=== PATIENT | male | born 1965 | race Caucasian/White ===

== ENCOUNTER 2019-06-23 03:28 | Inpatient (IN) ==
[2019-06-23] MEDS ORDERED: SODIUM CHLORIDE 0.9% 1000ML 1,000 ML IV SCH (04:00)
[2019-06-23 04:04] LABS: Basophils # (auto) 0.01 K/uL (0-0.2); Basophils % (auto) 0.2 %; Eosinophils # (auto) 0.19 K/uL (0-0.5); Hematocrit (blood only) 41.5 % (42-52); Immature Granulocytes # (auto) 0.01 K/uL (0.00-0.02); Immature Granulocytes % (auto) 0.2 %; Lymphocytes % (auto) 25.6 %; Mean Corpuscular Hemoglobin 33.3 pg (25-34); Mean Corpuscular Hgb Conc 36.1 g/dL (32-36); Monocytes # (auto) 0.41 K/uL (0.11-0.59); Monocytes % (auto) 6.5 %; Neutrophils # (auto) 4.04 K/uL (1.4-6.5); Neutrophils % (auto) 64.5 %; Platelet Count 219 K/uL (130-400); RDW Standard Deviation 43.4 fL (36.4-46.3); Red Blood Count 4.51 M/uL (4.7-6.1); White Blood Count 6.26 K/uL (4.8-10.8)
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
[2019-06-23 04:21] LABS: Alanine Aminotransferase 34 U/L (12-78); Albumin Level 4.1 gm/dl (3.4-5.0); Aspartate Aminotransferase 24 U/L (15-37); BUN Creatinine Ratio 11.8 (10-20); Blood Urea Nitrogen 10 mg/dl (7-18); Calcium 8.3 mg/dl (8.5-10.1); Carbon Dioxide 22 mmol/L (21-32); Chloride 102 mmol/L (98-107); Creatinine Clr Calc Pharmacy 119.2 ml/min; Est GFR (African American) 113.7; Est GFR (Non-African American) 98.1; Glucose 179 mg/dl (70-99); Potassium 3.5 mmol/L (3.5-5.1); Sodium 135 mmol/L (136-145)
[2019-06-23] MEDS ORDERED: IOVERSOL 100ml IV PRN (04:25)
[2019-06-23 04:26] LABS: Albumin Globulin Ratio 1.2 (0.9-2); Alkaline Phosphatase 66 U/L (45-117); Bilirubin,Total 0.5 mg/dl (0.2-1); Globulin 3.3 gm/dl (2.5-4.0); INR 4.9 (0.9-1.1); Partial Thromboplastin Ratio 1.5; Partial Thromboplastin Time 41.9 Seconds (21.0-31.0); Total Protein 7.4 gm/dl (6.4-8.2); Troponin I < 0.015 ng/ml (0-0.045)
[2019-06-23] MEDS ORDERED: PHYTONADIONE 5 MG TAB PO STA (04:55)
[2019-06-23] MEDS ORDERED: PHYTONADIONE 5 MG TAB PO ONE (05:00)
[2019-06-23] MEDS ORDERED: MULTI-VITAMIN INFUSION 10 ML, THIAMINE HCL 100 MG, FOLIC ACID 1 MG in SODIUM CHLORIDE 0... IV STA (05:03)
[2019-06-23] MEDS ORDERED: CALCIUM GLUCONATE 10% 1,000 MG in SODIUM CHLORIDE 0.9% 50 ML IV STA (05:04)
[2019-06-23] MEDS ORDERED: HYDROmorphone INJ 0.5 MG/0.5 ML SYR IV STA (05:41)
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
[2019-06-23 06:41] LABS: Estimated Average Glucose 143 mg/dl; Hemoglobin A1C 6.6 % (4.5-5.6)
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
[2019-06-23] MEDS ORDERED: HYDROmorphone INJ 0.5 MG/0.5 ML SYR IV ONE (06:59)
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
[2019-06-23] MEDS ORDERED: CARBOHYDRATES FOR HYPOGLYCEMIA PO PRN (07:16)
[2019-06-23] MEDS ORDERED: PROMETHAZINE HCL 12.5 MG in SODIUM CHLORIDE 0.9% 50 ML IV PRN (07:16)
[2019-06-23] MEDS ORDERED: GLUCAGON FOR INJ 1 MG VIAL SQ PRN (07:16)
[2019-06-23] MEDS ORDERED: HYDROmorphone INJ 0.5 MG/0.5 ML SYR IV PRN (07:16)
[2019-06-23] MEDS ORDERED: OXYCODONE HCL IR 5 MG TAB (IMMEDIATE RELEASE) PO PRN (07:16)
[2019-06-23] MEDS ORDERED: LORazepam 3 MG/6 ML VIAL IV PRN (07:16)
[2019-06-23] MEDS ORDERED: NITROGLYCERIN SL 0.4 MG/TAB TAB SL PRN (07:16)
[2019-06-23] MEDS ORDERED: LORazepam 2 MG/4 ML VIAL IV PRN (07:16)
[2019-06-23] MEDS ORDERED: ACETAMINOPHEN 325 MG TAB PO PRN (07:16)
[2019-06-23] MEDS ORDERED: ATIVAN IV ALCOHOL WITHDRAWL IV SCH (07:16)
[2019-06-23] MEDS ORDERED: DEXTROSE 50% 50 ML SYRINGE IV PRN (07:16)
[2019-06-23] MEDS ORDERED: GLUCOSE 40% GEL 15 GM TUBE PO PRN (07:16)
[2019-06-23] MEDS ORDERED: LORazepam 1 MG/2 ML VIAL IV PRN (07:16)
[2019-06-23] MEDS ORDERED: GLUCOSE 10 TABS/TUBE PO PRN (07:16)
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
[2019-06-23] MEDS ORDERED: METOPROLOL TARTRATE 1 MG/ML VIAL IV STA (07:48)
[2019-06-23] MEDS ORDERED: POTASSIUM CHLORIDE 20 MEQ TABCR PO STA (07:49)
[2019-06-23] MEDS ORDERED: MULTI-VITAMIN INFUSION 10 ML, THIAMINE HCL 100 MG, FOLIC ACID 1 MG in SODIUM CHLORIDE 0... IV ONE (07:51)
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
[2019-06-23 08:38] LABS: Appearance Urine Clear (Clear); Bacteria Urine Automated Negative (Negative); Bilirubin Urine Negative (Negative); Blood Urine 3+ (Negative); Cast Urine Automated 0 /lpf (0-5); Color Urine Yellow; Epithelial Cell Urine Auto 0-5 /lpf (0-5); Glucose Urine UA 2+ (Negative); Ketones Urine Trace (Negative); Leukocyte Esterase Urine Negative (Negative); Nitrite Urine Negative (Negative); Protein Urine Negative (Negative); Specific Gravity Urine 1.027 (1.000-1.030); Urobilinogen Urine Negative (Negative); WBC Urine Automated 0 /hpf (0-5)
[2019-06-23] MEDS: INSULIN ASPART 100 UNITS/ML 3 ML PEN SC SCH ×4 (08:47→21:08)
[2019-06-23] MEDS: ATORVASTATIN 20 MG TAB PO SCH (08:54)
[2019-06-23] MEDS: METOPROLOL SUCC 50MG EXT REL TAB PO SCH ×2 (08:59→20:57)
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
[2019-06-23 11:24] LABS: Amphetamines+Metham, Urine Neg (Neg); Barbiturates, Urine Neg (Neg); Benzodiazepine, Urine Neg (Neg); Cocaine, Urine Neg (Neg); MDMA (Ecstacy), Urine Neg (Neg); Methadone, Urine Neg (Neg); Opiate, Urine Neg (Neg); Phencyclidine, Urine Neg (Neg)
[2019-06-23 12:21] LABS: Hematocrit (blood only) 39.1 % (42-52); Hemoglobin 13.7 g/dL (14.0-18.0)
[2019-06-23] MEDS ORDERED: SODIUM CHLORIDE 0.65% NA SOLN 45 ML (OCEAN) ONE (12:56)
[2019-06-23] MEDS ORDERED: TRAMADOL HCL 50 MG TABLET PO PRN (12:59)
[2019-06-23] MEDS ORDERED: Nursing to Pharmacy Communication ONE (13:16)
[2019-06-23] MEDS: PANTOprazole 40 MG in SYRINGE 0 ML IV SCH (13:19)
[2019-06-23] MEDS ORDERED: SODIUM CHLORIDE 0.65% NA SOLN 45 ML (OCEAN) PRN (13:26)
[2019-06-24 06:23] LABS: Basophils # (auto) 0.01 K/uL (0-0.2); Basophils % (auto) 0.1 %; Eosinophils % (auto) 2.4 %; Hematocrit (blood only) 39.2 % (42-52); Hemoglobin 14.2 g/dL (14.0-18.0); Immature Granulocytes # (auto) 0.01 K/uL (0.00-0.02); Immature Granulocytes % (auto) 0.1 %; Lymphocytes # (auto) 1.42 K/uL (1.2-3.4); Lymphocytes % (auto) 16.8 %; Mean Corpuscular Hemoglobin 33.5 pg (25-34); Mean Corpuscular Hgb Conc 36.2 g/dL (32-36); Mean Corpuscular Volume 92.5 fL (80-100); Monocytes % (auto) 10.7 %; Neutrophils # (auto) 5.89 K/uL (1.4-6.5); Neutrophils % (auto) 69.9 %; Platelet Count 190 K/uL (130-400); RDW Standard Deviation 43.5 fL (36.4-46.3); Red Blood Count 4.24 M/uL (4.7-6.1); White Blood Count 8.43 K/uL (4.8-10.8)
[2019-06-24 06:36] LABS: INR 1.5 (0.9-1.1); Prothrombin Time 15.2 Seconds (9.0-12.0)
[2019-06-24 06:59] LABS: BUN Creatinine Ratio 13.7 (10-20); Calcium 8.5 mg/dl (8.5-10.1); Est GFR (African American) 109.7; Est GFR (Non-African American) 94.6; Potassium 3.8 mmol/L (3.5-5.1)
[2019-06-24] MEDS: METOPROLOL SUCC 50MG EXT REL TAB PO SCH (08:05)
[2019-06-24] MEDS: ATORVASTATIN 20 MG TAB PO SCH (08:06)
[2019-06-24] MEDS: INSULIN ASPART 100 UNITS/ML 3 ML PEN SC SCH ×3 (08:07→16:42)
[2019-06-24] MEDS ORDERED: ASPIRIN 81 MG ECTAB PO SCH (09:00)
[2019-06-24] MEDS ORDERED: FOLIC ACID 1 MG TAB PO SCH (09:00)
[2019-06-24] MEDS ORDERED: MULTIVITAMIN TAB PO SCH (09:00)
[2019-06-24] MEDS ORDERED: THIAMINE HCL 100 MG TAB PO SCH (09:00)
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
[2019-06-24] MEDS: PANTOprazole 40 MG in SYRINGE 0 ML IV SCH (10:59)
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
[2019-06-24] MEDS ORDERED: WARFARIN SOD 5 MG TAB PO SCH (16:00)
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
[2019-06-25] MEDS ORDERED: WARFARIN SOD 10 MG TAB PO SCH (16:00)
== END 2019-06-24 20:30 | disposition short-term general hospital (02) | DRG 605 ==
LOC: ED 03:28 → 2N 05:48 → 2E 08:47

== ENCOUNTER 2025-01-26 01:48 | Inpatient (IN) ==
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
[2025-01-26] MEDS: HYDROmorphone INJ 1 MG/ML SYRINGE IV STA ×2 (02:44→05:15)
[2025-01-26 02:57] LABS: Basophils # (auto) 0.04 K/uL (0.00-0.20); Basophils % (auto) 0.4 %; Eosinophils % (auto) 1.8 %; Hematocrit (blood only) 42.6 % (42.0-52.0); Immature Granulocytes # (auto) 0.03 K/uL (0.01-0.20); Immature Granulocytes % (auto) 0.3 %; Lymphocytes # (auto) 2.03 K/uL (1.20-3.40); Lymphocytes % (auto) 17.9 %; Mean Corpuscular Hemoglobin 32.3 pg (25.0-34.0); Mean Corpuscular Hgb Conc 35.2 g/dL (32.0-36.0); Mean Corpuscular Volume 91.6 fL (80.0-100.0); Mean Platelet Volume 9.3 fL (9.4-12.4); Monocytes # (auto) 0.64 K/uL (0.11-0.59); Monocytes % (auto) 5.6 %; Neutrophils # (auto) 8.39 K/uL (1.40-6.50); Platelet Count 239 K/uL (130-400); RDW Coefficient of Variation 12.2 % (11.5-14.5); RDW Standard Deviation 40.4 fL (36.4-46.3); Red Blood Count 4.65 M/uL (4.70-6.10); White Blood Count 11.33 K/ul (4.8-10.8)
[2025-01-26 03:06] LABS: BUN Creatinine Ratio 18.3 (10-20); Calcium 9.8 mg/dl (8.6-10.3); Creatinine Clr Calc Pharmacy 93.3 ml/min; Potassium 3.6 mmol/L (3.5-5.1)
[2025-01-26] MEDS: fentaNYL citrate PF 100 MCG/2 ML VIAL IV STA ×2 (03:13→05:31)
--- NOTE | 2025-01-26 03:24 | XRay Report ---
EXAM: XR hip RT 2V w pelvis CLINICAL HISTORY: Right hip trauma. TECHNIQUE: X-ray images of the right hip joints and pelvis were obtained in anteroposterior (AP) projection. COMPARISON: CT pelvis dated 06/23/2019. FINDINGS: Pelvic Bones: The pelvic bones, including the iliac wings, ischium, pubis, and sacrum, are normal and intact. No evidence of fractures, dislocations, or significant osseous lesions. Hip Joints: Right hip joint: Degenerative changes manifested by osteophytes, joint space narrowing, and subchondral sclerosis. Moderate osteoarthritis of the left hip joint. No evidence of hip dislocation or subluxation. Acetabular structures appear normal and intact. No signs of acetabular fracture or dysplasia. Femoral heads are normal and centered within the acetabulum. No evidence of fractures, avascular necrosis, or significant deformities. Sacroiliac joints : Degenerative changes. Symphysis Pubis: Degenerative changes. Soft Tissues: Small calcification was seen adjacent to the greater trochanter of the right femur, likely ligamentous. Unchanged. Multiple pelvic phleboliths are noted. Additional Findings: No other significant abnormalities were noted. IMPRESSION: 1. No evidence of acute fractures or dislocations. 2. Mild to moderate osteoarthritis of both hip joints. 3. No significant interval change. DISCLAIMER:A subtle bone abnormality or fracture may not be readily apparent on x-rays, thus clinical correlation and further imaging including follow up CT, MRI, or follow up x-rays are advised as needed. Electronically signed by George Vallecillo 01-26-2025 03:24 AM
[2025-01-26 03:49] LABS: INR 4.5 (0.9-1.1); Prothrombin Time 42.9 Seconds (9.0-12.0)
--- NOTE | 2025-01-26 05:01 | CT Scan Report ---
EXAM: CT hip RT wo con CLINICAL HISTORY: fall, right hip pain TECHNIQUE: Contiguous axial CT images of right hip were obtained without intravenous contrast. Coronal and sagittal reconstructions were likewise performed and indicated to increase the sensitivity for detecting clinically relevant pathology. CT scan was performed according to ALARA (as low as reasonable achievable). COMPARISON: None. FINDINGS: Suboptimal evaluation due to motion artifacts. Enthesopathic changes are noted from ischial tuberosity, pubic rami and trochanters. Right gluteus medius muscle appears diffusely bulky and edematous. Suspicious hypodensities are noted within it, may represent hematoma (in the given clinical background of trauma). However, it is sub-optimally evaluated as no soft tissue window images available. Ultrasound correlation is suggested for better evaluation. No acute fracture or dislocation. No destructive osseous lesion. Rest of the visualized muscles and tendons appear grossly unremarkable. No cortical destruction to suggest osteomyelitis. No abscess formation. No significant joint effusion. Normal subcutaneous adipose space. IMPRESSION: 1. No acute fracture or dislocation. 2. Suboptimal evaluation due to motion artifacts. 3. Enthesopathic changes are noted from ischial tuberosity, pubic rami and trochanters. 4. Right gluteus medius muscle appears diffusely bulky and edematous. Suspicious hypodensities are noted within it, may represent hematoma (in the given clinical background of trauma). However, it is sub-optimally evaluated as no soft tissue window images available. Ultrasound / soft tissue window correlation is suggested for better evaluation. Electronically signed by Eleuterio Khalil 01-26-2025 05:01 AM
--- NOTE | 2025-01-26 05:06 | CT Scan Report ---
EXAM: CT pelvis wo con CLINICAL HISTORY: fall, right hip pain TECHNIQUE: Contiguous axial CT images of pelvis were obtained without intravenous contrast. Coronal and sagittal reconstructions were likewise performed and indicated to increase the sensitivity for detecting clinically relevant pathology. CT scan was performed according to ALARA (as low as reasonable achievable). COMPARISON: None. FINDINGS: Mild arthritis of bilateral hip in the form of small marginal osteophyte. No acute fracture or dislocation. No destructive osseous lesion. The visualized muscles and tendons appear grossly unremarkable. No cortical destruction to suggest osteomyelitis. No abscess formation. No significant joint effusion. There are no soft tissue masses. Normal subcutaneous adipose space. Multiple small uncomplicated sigmoid colonic diverticulosis IMPRESSION: No obvious acute trauma related abnormality seen. Electronically signed by Eleuterio Khalil 01-26-2025 05:04 AM
--- NOTE | 2025-01-26 05:06 | CT Scan Report ---
EXAM: CT head/brain wo con CLINICAL HISTORY: trauma on coumadin TECHNIQUE: Multiple axial images are obtained from the skull base to the vertex without contrast. CT scan was performed according to ALARA (as low as reasonable achievable). 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 FINDINGS: There is cerebral atrophy. No evidence of space occupying lesion, hemorrhage, edema, mass effect, midline shift, extra axial collection, or hydrocephalus is noted. Basal cisterns are symmetric and normal in size and configuration. There are scattered periventricular hypodensities as can be seen with chronic microvascular ischemic changes. The shaikh-white matter differentiation is preserved. Visualized paranasal sinuses and mastoid air cells are well aerated. Orbital contents are within normal limits. Bony structures are intact. No significant interval newabnormality detected. IMPRESSION: 1. No evidence of acute intracranial abnormality is demonstrated. 2. Chronic microvascular ischemic changes.-stable. 3. Cerebral atrophy.-stable. 4. Prior scalp hematoma is completely resolved Electronically signed by Eleuterio Khalil 01-26-2025 05:05 AM
[2025-01-26] MEDS ORDERED: ACETAMINOPHEN 325 MG TAB PO PRN (05:43)
[2025-01-26] MEDS: AMOXICILLIN/CLAVULANATE 875 MG TAB PO ONE (05:55)
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
--- OUTSIDE RECORDS SUMMARY | 2025-01-26 06:34 | External Medical Summary | Summary of Care ---
Author Name Unknown Organization [facility] Address [address] [facility] [place] [address] Phone [phone] Care Team Providers Care Jigsaw Operator Name Role Phone Elton Lal MD Primary Care Provider [phone] Reason for Visit * Reason Onset Date Comments Forms Request 01/10/2025 Encounter Details Date Type Department Care Team (Late st Contact Info) Description 01/10/2025 Telephone [facility] [address] [place] [address] Elton Lal MD [address] [place] [address] Forms Request Allergies Active Allergy Reactions Criticality Noted Date Comments Lisinopril 01/07/2011 ED Morphine And Codeine 10/27/2015 "goofy and combative" documented as of this encounter (statuses as of 01/24/2025) Medications StribeTOUCH ULTRA SYSTEM W/DEVICE KITIndications:D M type 2, [...] as of this encounter (statuses as of 01/24/2025) Active Problems Problem Noted Date Diagnosed Date [...] as of this encounter (statuses as of 01/24/2025) Resolved Problems Problem Noted Date Diagnosed Date [...] as of this encounter (statuses as of 01/24/2025) Immunizations Name Administration Dates Next Due TDAP, [...] encounter Miscellaneous Notes * Telephone Encounter - Nydia Armas OSA - 01/24/2025 3:57 PM EDT Refaxed. 01/24/2025 * Telephone Encounter - Kerline Blandon OSA - 01/23/2025 10:59 AM EDT Patient calling in to check on the status of previous message. Patient Called within 48 hour timeframe. Reminded patient of 48 hour turn-around time. * Telephone Encounter - Stephanie Golden OSA - 01/23/2025 10:34 AM EDT Pt called back stated that he spoke with [employer] and he was advised by them that they did receive the fax but the papers were blank and possibly faxed upside down. Pls refax this pls Pt is requesting for a call once It has been refaxed. * Telephone Encounter - Nydia Armas OSA - 01/21/2025 4:33 PM EDT Forms have been faxed. Called patient to let him know they have been faxed and offered for him to parts picker originals. He asked that we keep originals until he knows that they have been received. 01/21/2025 * Telephone Encounter - Elotn Lal MD - 01/21/2025 2:00 PM EDT Let Pt know I will complete the form later today. He could parts picker at desk after 6 PM or tomorrow. * Telephone Encounter - Maime Lobato OSA - 01/21/2025 7:30 AM EDT Patient calling in to check on the status of previous message. Patient Called after forms 5-7 business day turnaround timeframe and escalation e-mail was sent to clinic leadership. Patient states that the [employer] paperwork needs to be faxed to [facility] and the short term disability needs to be faxed to [facility]. Patient needs both paperwork completed by the end of week, or he will be denied. The FMLA paperwork was supposed to be submitted by 01/19/2025. * Telephone Encounter - Safia Luna LPN - 01/17/2025 5:59 PM EDT Spoke with pt . He stated it's a little better, but wants to keep the date 02/21/2025 for now. He will be dropping off more paper work ( that was supposed to have been faxed to us) tomorrow. thanks * Telephone Encounter - Elton Lal MD - 01/17/2025 4:42 PM EDT Please contact Pt: I indicated to Pt he might need to be off work until end of January. Need to know if he is feeling much better . We can keep withj retutn to work as of 02/21/25 but if feeling much better, he might be able to return sooner - like mid January. * Telephone Encounter - Safia Luna LPN - 01/17/2025 2:17 PM EDT Form placed on provider's desk in manilla envelope to review and fill out * Telephone Encounter - Mark Morgan OSA - 01/16/2025 2:52 PM EDT Pt wanting to know if his FMLA paperwork is completed and if a fax was received today for Short term disability. * Telephone Encounter - Joe Solis OSA - 01/10/2025 3:00 PM EDT Patient came in to drop off FMLA paperwork that needs filled out by PCP. Please fax back to [phone] when completed. documented in this encounter Plan of Treatment Upcoming Encounters Date Type Department Care Team (Late st Contact Info) Description 01/29/2025 6:45 PM EDT Anticoagulation Centralized Clinical Pharmacy Services, Tremaine Ortiz [address] [place] [address] [place] [address] [facility], [address] [place] [address] Health Maintenance Due Date Last Done Comments [...] 08/25/2020, 0 01/29/2019, 02/15/2012 COVID-19 Vaccine ( season) 2024 Influenza Vaccine (FLU shot) (Season [...] this encounter Medical Devices Implanted Type Area Record Filing Clerk Device Identifier Shelf Expiration Date Model / Serial / Lot Graft Valved Valsalva 27mm - [id number] - [id number] Implanted:Qty: 1 on 10/09/2015 by Khalif Melgar MD at OR [facility] Aorta [employer]ACIN[employer] : CARDIOVASCULAR 01/21/2018 [id number]-[id number] / [id number] / Sut Steel 6 M654g - [id number] Implanted:Qty: 4 on 10/09/2015 by Khalif Melgar MD at OR [facility] Chest JNJ : [employer] 06/23/2020 M654G / / [id number] documented as of this encounter Advance Directives [...] and were consensually agreed upon. Care Teams Jigsaw Operator Relationship Specialty Start Date End Date Elton Lal MD [address] [facility] [place] [address] PCP - General Family Medicine 01/08/25 documented as of this encounter
--- OUTSIDE RECORDS SUMMARY | 2025-01-26 06:34 | External Medical Summary | Summary of Care ---
Author Name Unknown Organization [facility] Address [address] [facility] [place] [address] Phone [phone] Care Team Providers Care Paving Contractor Name Role Phone Elton Lal MD Primary Care Provider [phone] Reason for Visit * Reason Onset Date Comments Forms Request 01/18/2025 Encounter Details Date Type Department Care Team (Late st Contact Info) Description 01/18/2025 Telephone [facility] [address] [facility] [place] [address] Elton Lal MD [address] [place] [address] Forms Request Allergies Active Allergy Reactions Criticality Noted Date Comments Lisinopril 01/07/2011 ED Morphine And Codeine 10/27/2015 "goofy and combative" documented as of this encounter (statuses as of 01/25/2025) Medications NanoStatics CorporationTOUCH ULTRA SYSTEM W/DEVICE KITIndications:D M type 2, [...] encounter Miscellaneous Notes * Telephone Encounter - Stephanie Stark OSA - 01/24/2025 4:15 PM EDT Patient calling back asking what the status of the paperwork for FMLA, he states the [facility] forms were received however patient states [facility] told him there was nothing completed except [...] the paperwork for FMLA, he states the [facility] forms were received however patient states [facility] told him there was nothing completed except [...] Anticoagulation Centralized Clinical Pharmacy Services, Tremaine Ortiz [address] [place] [address] [place] [address] [place] [address] Health Maintenance Due Date Last Done Comments [...] this encounter Medical Devices Implanted Type Area Building Dismantler Device Identifier Shelf Expiration Date Model / Serial / Lot Graft Valved Valsalva 27mm - [id number] - [id number] Implanted:Qty: 1 on 10/09/2015 by Khalif Melgar MD at [place] [facility] Aorta [employer] JACINDA : CARDIOVASCULAR 01/21/2018 [id number]-[id number] / [id number] / Sut Steel 6 M654g - [id number] Implanted:Qty: 4 on 10/09/2015 by Khalif Melgar MD at [place] [facility] Chest JNJ : [employer] 06/23/2020 M654G / / [id number] documented as of this encounter Advance Directives [...] and were consensually agreed upon. Care Teams Paving Contractor Relationship Specialty Start Date End Date Elton Lal MD [address] [place] [address] PCP - General Family Medicine 01/08/25 documented as of this encounter
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
--- OUTSIDE RECORDS SUMMARY | 2025-01-26 06:34 | External Medical Summary | Summary of Care ---
Author Name Unknown Organization [facility] Address [address] [facility] [place] [address] Phone [phone] Care Team Providers Care Art Class Model Name Role Phone Elton Lal MD Primary Care Provider [phone] Reason for Visit * Reason Onset Date Comments Forms Request 01/18/2025 Encounter Details Date Type Department Care Team (Late st Contact Info) Description 01/18/2025 Telephone [facility] [address] [place] [address] Elton Lal MD 226 [place] [address] Forms Request Allergies Active Allergy Reactions Criticality Noted Date Comments Lisinopril 01/07/2011 ED Morphine And Codeine 10/27/2015 "goofy and combative" documented as of this encounter (statuses as of 01/25/2025) Medications [facility] RockfordTOUCH ULTRA SYSTEM W/DEVICE KITIndications:D M type 2, [...] the paperwork for FMLA, he states the [facility] forms were received however patient states [facility] told him there was nothing completed except [...] the paperwork for FMLA, he states the [facility] forms were received however patient states [facility] told him there was nothing completed except [...] Anticoagulation [facility], Tremaine Ortiz [address] [place] [address] [place] [address] [place] [address] Health Maintenance Due Date Last Done Comments [...] this encounter Medical Devices Implanted Type Area Assembler Leather Goods Device Identifier Shelf Expiration Date Model / Serial / Lot Graft Valved Valsalva 27mm - [id number] - [id number] Implanted:Qty: 1 on 10/09/2015 by Khalif Melgar MD at OR [facility] Aorta [facility] JACINDA : CARDIOVASCULAR 01/21/2018 [id number]-[id number] / [id number] / Sut Steel 6 M654g - [id number] Implanted:Qty: 4 on 10/09/2015 by Khalif Melgar MD at OR [facility] Chest JNJ : [employer] 06/23/2020 M654G / / [id number] documented as of this encounter Advance Directives [...] and were consensually agreed upon. Care Teams Art Class Model Relationship Specialty Start Date End Date Elton Lal MD [address] [place] [address] PCP - General Family Medicine 01/08/25 documented as of this encounter
[2025-01-26] MEDS: oxyCODONE HCL IR 5 MG TAB (IMMEDIATE RELEASE) PO PRN (06:35)
--- OUTSIDE RECORDS SUMMARY | 2025-01-26 06:37 | External Medical Summary | Summary of Care ---
Author Name Unknown Organization [facility] Address [address] [facility] [place] [address] Phone [phone] Care Team Providers Care Protection Consultant Name Role Phone Elton Lal MD Primary Care Provider [phone] Reason for Visit * Reason Onset Date Comments Forms Request 01/10/2025 Encounter Details Date Type Department Care Team (Late st Contact Info) Description 01/10/2025 Telephone [facility] [address] [place] [address] Elton Lal MD 226 [place] [address] Forms Request Allergies Active Allergy Reactions Criticality Noted Date Comments Lisinopril 01/07/2011 ED Morphine And Codeine 10/27/2015 "goofy and combative" documented as of this encounter (statuses as of 01/23/2025) Medications BroadchoiceTOUCH ULTRA SYSTEM W/DEVICE KITIndications:D M type 2, [...] as of this encounter (statuses as of 01/23/2025) Active Problems Problem Noted Date Diagnosed Date [...] as of this encounter (statuses as of 01/23/2025) Resolved Problems Problem Noted Date Diagnosed Date [...] as of this encounter (statuses as of 01/23/2025) Immunizations Name Administration Dates Next Due TDAP, [...] encounter Miscellaneous Notes * Telephone Encounter - Kerline Blandon OSA [...] been faxed and offered for him to picker machine operator originals. He asked that we keep originals until he knows that they have been received. 01/21/2025 * Telephone Encounter - Elton Lal MD - 01/21/2025 2:00 PM EDT Let Pt know I will complete the form later today. He could picker machine operator at desk after 6 PM or tomorrow. * Telephone Encounter - Mamie Lobato OSA - 01/21/2025 7:30 AM EDT Patient calling in to check on the status of previous message. Patient Called after forms 5-7 business day turnaround timeframe and escalation e-mail was sent to clinic leadership. Patient states that the FLMA paperwork needs to be faxed to [facility] and the short term disability needs to be faxed to [facility]. Patient needs both paperwork completed by the [...] out by PCP. Please fax back to [phone] when completed. documented in this encounter Plan of Treatment Upcoming Encounters Date Type Department Care Team (Late st Contact Info) Description 01/29/2025 6:45 PM EDT Anticoagulation Centralized Clinical Pharmacy Services, Tremaine Ortiz [address] [place] [address] [place] [address] [facility], [address] [place] [address] Health Maintenance Due Date Last Done Comments [...] 0 01/29/2019, 02/15/2012 COVID-19 Vaccine ( - season) 2024 Influenza Vaccine (FLU shot) (Season [...] this encounter Medical Devices Implanted Type Area Biodiesel Plant Superintendent Device Identifier Shelf Expiration Date Model / Serial / Lot Graft Valved Valsalva 27mm - [id number] - [id number] Implanted:Qty: 1 on 10/09/2015 by Khalif Melgar MD at OR [facility] Aorta [address] JACINDA : CARDIOVASCULAR 01/21/2018 [id number]-[id number] / [id number] / Sut Steel 6 M654g - [id number] Implanted:Qty: 4 on 10/09/2015 by Khalif Melgar MD at OR [facility] Chest JNJ : [employer] 06/23/2020 M654G / / [id number] documented as of this encounter Advance Directives [...] and were consensually agreed upon. Care Teams Protection Consultant Relationship Specialty Start Date End Date Elton Lal MD [address] [place] [address] PCP - General Family Medicine 01/08/25 documented as of this encounter
--- OUTSIDE RECORDS SUMMARY | 2025-01-26 06:37 | External Medical Summary | Summary of Care ---
Author Name Unknown Organization [facility] Address [address] [facility] [place] [address] Phone [phone] Care Team Providers Care Newspaper Or Periodical Editor Name Role Phone Elton Lal MD Primary Care Provider Reason for Visit * Reason Onset Date Comments Forms Request 01/10/2025 Encounter Details Date Type Department Care Team (Late st Contact Info) Description 01/10/[address] [facility] [address] [facility] [place] [address] Elton Lal MD [address] [place] [address] Forms Request Allergies Active Allergy Reactions Criticality Noted Date Comments Lisinopril 01/07/2011 ED Morphine And Codeine 10/27/2015 "goofy and combative" documented as of this encounter (statuses as of 01/23/2025) Medications KuponjoTOUCH ULTRA SYSTEM W/DEVICE KITIndications:D M type 2, [...] been faxed and offered for him to case picker originals. He asked that we keep originals until he knows that they have been received. 01/21/2025 * Telephone Encounter - Elton Lal MD - 01/21/2025 2:00 PM EDT Let Pt know I will complete the form later today. He could case picker at desk after 6 PM or tomorrow. * Telephone Encounter - Mamie Lobato OSA - 01/21/2025 7:30 AM EDT Patient calling in to check on the status of previous message. Patient Called after forms 5-7 business day turnaround timeframe and escalation e-mail was sent to clinic leadership. Patient states that the FLMA paperwork needs to be faxed to [facility] and the short term disability needs to be faxed to [facility]. Patient needs both paperwork completed by [...] out by PCP. Please fax back to [phone] when completed. documented in this encounter Plan of Treatment Upcoming Encounters Date Type Department Care Team (Late st Contact Info) Description 01/29/2025 6:45 PM EDT Anticoagulation [facility], Tremaine Ortiz [address] [place] [address] [place] [address] [facility], [address] [place] [address] Health Maintenance Due Date Last Done Comments [...] this encounter Medical Devices Implanted Type Area Set Staff Fitter Device Identifier Shelf Expiration Date Model / Serial / Lot Graft Valved Valsalva 27mm - [id number] - [id number] Implanted:Qty: 1 on 10/09/2015 by Khalif Melgar MD at [place] [facility] Aorta [address] JACINDA : CARDIOVASCULAR 01/21/2018 [id number]-515 / [id number] / Sut Steel 6 M654g - [id number] Implanted:Qty: 4 on 10/09/2015 by Khalif Melgar MD at [place] [facility] Chest JNJ : [employer] 06/23/2020 M654G / / [id number] documented as of this encounter Advance Directives [...] and were consensually agreed upon. Care Teams Newspaper Or Periodical Editor Relationship Specialty Start Date End Date Elton Lal MD [address] [place] [address] PCP - General Family Medicine 01/08/25 documented as of this encounter
--- OUTSIDE RECORDS SUMMARY | 2025-01-26 06:37 | External Medical Summary | Summary of Care ---
Author Name Unknown Organization [facility] Address [address] [facility] [place] [address] Phone [phone] Care Team Providers Care Fish Cake Maker Name Role Phone Elton Lal MD Primary Care Provider [phone] Reason for Visit * Reason Onset Date Comments Forms Request 01/10/2025 Encounter Details Date Type Department Care Team (Late st Contact Info) Description 01/10/2025 Telephone [facility] [address] [place] [address] Elton Lal MD 226 [place] [address] Forms Request Allergies Active Allergy Reactions Criticality Noted Date Comments Lisinopril 01/07/2011 ED Morphine And Codeine 10/27/2015 "goofy and combative" documented as of this encounter (statuses as of 01/23/2025) Medications Q HoldingsTOUCH ULTRA SYSTEM W/DEVICE KITIndications:D M type 2, [...] been faxed and offered for him to tack picker originals. He asked that we keep originals until he knows that they have been received. 01/21/2025 * Telephone Encounter - Elton Lal MD - 01/21/2025 2:00 PM EDT Let Pt know I will complete the form later today. He could tack picker at desk after 6 PM or tomorrow. * Telephone Encounter - Mamie Lobato OSA - 01/21/2025 7:30 AM EDT Patient calling in to check on the status of previous message. Patient Called after forms 5-7 business day turnaround timeframe and escalation e-mail was sent to clinic leadership. Patient states that the FLMA paperwork needs to be faxed to [facility] and the short term disability needs to be faxed to [facility]. Patient needs both paperwork completed by [...] out by PCP. Please fax back to [phone] when completed. documented in this encounter Plan of Treatment Upcoming Encounters Date Type Department Care Team (Late st Contact Info) Description 01/29/2025 6:45 PM EDT Anticoagulation [facility], Tremaine Ortiz [address] [place] [address] [place] [address] [facility], [address] [place] [address] Health Maintenance Due Date Last Done Comments [...] this encounter Medical Devices Implanted Type Area Computer Science Professor Device Identifier Shelf Expiration Date Model / Serial / Lot Graft Valved Valsalva 27mm - [id number] - [id number] Implanted:Qty: 1 on 10/09/2015 by Khalif Melgar MD at OR [facility] [place] Aorta [address] JACINDA : CARDIOVASCULAR 01/21/2018 [id number]-515 / [id number] / Sut Steel 6 M654g - [id number] Implanted:Qty: 4 on 10/09/2015 by Khalif Melgar MD at [place] [facility] Chest JNJ : [employer] 06/23/2020 M654G / / [id number] documented as of this encounter Advance Directives [...] and were consensually agreed upon. Care Teams Fish Cake Maker Relationship Specialty Start Date End Date Elton Lal MD [address] [place] [address] PCP - General Family Medicine 01/08/25 documented as of this encounter
--- OUTSIDE RECORDS SUMMARY | 2025-01-26 06:37 | External Medical Summary | Summary of Care ---
Author Name Unknown Organization [facility] Address [address] [facility] [place] [address] Phone [phone] Care Team Providers Care Guest Request Runner Name Role Phone Elton Lal MD Primary Care Provider [phone] Reason for Visit * Reason Onset Date Comments Forms Request 01/10/2025 Encounter Details Date Type Department Care Team (Late st Contact Info) Description 01/10/2025 Telephone [facility] [address] [facility] [address] Elton Lal MD 226 [place] [address] Forms Request Allergies Active Allergy Reactions Criticality Noted Date Comments Lisinopril 01/07/2011 ED Morphine And Codeine 10/27/2015 "goofy and combative" documented as of this encounter (statuses as of 01/21/2025) Medications wizbooTOUCH ULTRA SYSTEM W/DEVICE KITIndications:D M type 2, [...] as of this encounter (statuses as of 01/21/2025) Active Problems Problem Noted Date Diagnosed Date [...] as of this encounter (statuses as of 01/21/2025) Resolved Problems Problem Noted Date Diagnosed Date [...] as of this encounter (statuses as of 01/21/2025) Immunizations Name Administration Dates Next Due TDAP, [...] been faxed and offered for him to pick pulling machine operator originals. He asked that we keep originals until he knows that they have been received. 01/21/2025 * Telephone Encounter - Elton Lal MD - 01/21/2025 2:00 PM EDT Let Pt know I will complete the form later today. He could pick pulling machine operator at desk after 6 PM or tomorrow. * Telephone Encounter - Mamie Lobato OSA - 01/21/2025 7:30 AM EDT Patient calling in to check on the status of previous message. Patient Called after forms 5-7 business day turnaround timeframe and escalation e-mail was sent to clinic leadership. Patient states that the FLMA paperwork needs to be faxed to [facility] and the short term disability needs to be faxed to [facility]. Patient needs both paperwork completed by the end of week, or he will be denied. The [place] paperwork was supposed to be submitted by [...] out by PCP. Please fax back to [phone] when completed. documented in this encounter Plan of Treatment Upcoming Encounters Date Type Department Care Team (Late st Contact Info) Description 01/29/2025 6:45 PM EDT Anticoagulation [facility] Clinical Pharmacy Services, Tremaine Ortiz [address] [place] [address] [place] [address] [place] [address] Health Maintenance Due Date Last Done Comments [...] ( season) 2024 Influenza Vaccine (FLU shot) (#1) 2024 HbA1c 07/06/2025 01/03/2025, 07/0 03/2022, 04/10/2021, Additional [...] this encounter Medical Devices Implanted Type Area Conduit Cleaner Device Identifier Shelf Expiration Date Model / Serial / Lot Graft Valved Valsalva 27mm - [id number] - [id number] Implanted:Qty: 1 on 10/09/2015 by Khalif Melgar MD at [place] [facility] A[place] [address] JACINDA : CARDIOVASCULAR 01/21/2018 [id number]-515 / [id number] / Sut Steel 6 M654g - [id number] Implanted:Qty: 4 on 10/09/2015 by Khalif Melgar MD at [place] [facility] Chest JNJ : [employer] 06/23/2020 M654G / / [id number] documented as of this encounter Advance Directives [...] and were consensually agreed upon. Care Teams Guest Request Runner Relationship Specialty Start Date End Date Elton Lal MD [address] [place] [address] PCP - General Family Medicine 01/08/25 documented as of this encounter
--- OUTSIDE RECORDS SUMMARY | 2025-01-26 06:37 | External Medical Summary | Summary of Care ---
Author Name Unknown Organization [facility] Address [address] [facility] [place] [address] Phone [phone] Care Team Providers Care Zipper Machine Operator Name Role Phone Elton Lal MD Primary Care Provider [phone] Reason for Visit * Reason Onset Date Comments Forms Request 01/10/2025 Encounter Details Date Type Department Care Team (Late st Contact Info) Description 01/10/2025 Telephone [facility] [address] [place] [address] Elton Lal MD 226 [place] [address] Forms Request Allergies Active Allergy Reactions Criticality Noted Date Comments Lisinopril 01/07/2011 ED Morphine And Codeine 10/27/2015 "goofy and combative" documented as of this encounter (statuses as of 01/22/2025) Medications CoaxisTOUCH ULTRA SYSTEM W/DEVICE KITIndications:D M type 2, [...] as of this encounter (statuses as of 01/22/2025) Active Problems Problem Noted Date Diagnosed Date [...] as of this encounter (statuses as of 01/22/2025) Resolved Problems Problem Noted Date Diagnosed Date [...] as of this encounter (statuses as of 01/22/2025) Immunizations Name Administration Dates Next Due TDAP, [...] been faxed and offered for him to picking machine operator originals. He asked that we keep originals until he knows that they have been received. 01/21/2025 * Telephone Encounter - Elton Lal MD - 01/21/2025 2:00 PM EDT Let Pt know I will complete the form later today. He could picking machine operator at desk after 6 PM or tomorrow. * Telephone Encounter - Mamie Lobato OSA - 01/21/2025 7:30 AM EDT Patient calling in to check on the status of previous message. Patient Called after forms 5-7 business day turnaround timeframe and escalation e-mail was sent to clinic leadership. Patient states that the FLMA paperwork needs to be faxed to [facility] and the short term disability needs to be faxed to [facility]. Patient needs both paperwork [...] out by PCP. Please fax back to [phone] when completed. documented in this encounter Plan of Treatment Upcoming Encounters Date Type Department Care Team (Late st Contact Info) Description 01/29/2025 6:45 PM EDT Anticoagulation [facility] Clinical Pharmacy Services, Tremaine Otriz [address] [place] [address] [place] [address] [place] [address] Health Maintenance Due Date Last Done Comments [...] this encounter Medical Devices Implanted Type Area Cook Fry Device Identifier Shelf Expiration Date Model / Serial / Lot Graft Valved Valsalva 27mm - [id number] - [id number] Implanted:Qty: 1 on 10/09/2015 by Khalif Melgar MD at OR [facility] Aorta [address] JACINDA : CARDIOVASCULAR 01/21/2018 [id number]-[id number] / [id number] / Sut Steel 6 M654g - [id number] Implanted:Qty: 4 on 10/09/2015 by Khalif Melgar MD at OR [facility] Chest JNJ : [employer] 06/23/2020 M654G / / [id number] documented as of this encounter Advance Directives [...] and were consensually agreed upon. Care Teams Zipper Machine Operator Relationship Specialty Start Date End Date Elton Lal MD [address] [place] [address] PCP - General Family Medicine 01/08/25 documented as of this encounter
--- OUTSIDE RECORDS SUMMARY | 2025-01-26 06:38 | External Medical Summary | Summary of Care ---
Author Name Unknown Organization [facility] Address [address] [facility] [place] [address] Phone [phone] Care Team Providers Care Ceramics Technician Name Role Phone Elton Lal MD Primary Care Provider [phone] Reason for Visit * Reason Onset Date Comments Forms Request 01/10/2025 Encounter Details Date Type Department Care Team (Late st Contact Info) Description 01/10/2025 Telephone [facility] [address] [place] [address] Elton Lal MD [address] [place] [address] Forms Request Allergies Active Allergy Reactions Criticality Noted Date Comments Lisinopril 01/07/2011 ED Morphine And Codeine 10/27/2015 "goofy and combative" documented as of this encounter (statuses as of 01/21/2025) Medications Silvercare SolutionsTOUCH ULTRA SYSTEM W/DEVICE KITIndications:D M type 2, [...] encounter Miscellaneous Notes * Telephone Encounter - Mamie Lobato OSA - 01/21/2025 7:30 AM EDT Patient calling in to check on the status of previous message. Patient Called after forms 5-7 business day turnaround timeframe and escalation e-mail was sent to clinic leadership. Patient states that the FLMA paperwork needs to be faxed to [facility] and the short term disability needs to be faxed to [facility]. Patient needs both paperwork completed by the end of week, or he will be denied. The [facility] paperwork was supposed to be submitted by [...] EDT Form placed on provider's desk in clarkstonilla envelope to review and fill out * [...] out by PCP. Please fax back to [phone] when completed. documented in this encounter Plan of Treatment Health Maintenance Due Date Last Done Comments [...] - season) 2024 Influenza Vaccine (FLU shot) (#1) [...] this encounter Medical Devices Implanted Type Area Contractor General Engineering Device Identifier Shelf Expiration Date Model / Serial / Lot Graft Valved Valsalva 27mm - [id number] - [id number] Implanted:Qty: 1 on 10/09/2015 by Khalif Melgar [place] [facility] [address] JACINDA : CARDIOVASCULAR 01/21/2018 [id number]-515 / [id number] / Sut Steel 6 M654g - [id number] Implanted:Qty: 4 on 10/09/2015 by Khalif Melgar MD [place] [facility] Chest JNJ : [employer] 06/23/2020 M654G / / [id number] documented as of this encounter Advance Directives [...] and were consensually agreed upon. Care Teams Ceramics Technician Relationship Specialty Start Date End Date Elton Lal MD 226 [place] [address] PCP - General Family Medicine 01/08/25 documented as of this encounter
--- OUTSIDE RECORDS SUMMARY | 2025-01-26 06:38 | External Medical Summary | Summary of Care ---
Author Name Unknown Organization [facility] Address [address] [facility] [place] [address] Phone [phone] Care Team Providers Care Senior Behavioral Scientist Name Role Phone Elton Lal MD Primary Care Provider [phone] Reason for Visit * Reason Onset Date Comments Forms Request 01/10/2025 Encounter Details Date Type Department Care Team (Late st Contact Info) Description 01/10/[address] [facility] [address] [place] [address] Elton Lal MD [address] [place] [address] Forms Request Allergies Active Allergy Reactions Criticality Noted Date Comments Lisinopril 01/07/2011 ED Morphine And Codeine 10/27/2015 "goofy and combative" documented as of this encounter (statuses as of 01/17/2025) Medications Sentimed Medical CorporationTOUCH ULTRA SYSTEM W/DEVICE KITIndications:D M type [...] as of this encounter (statuses as of 01/17/2025) Active Problems Problem Noted Date Diagnosed Date [...] as of this encounter (statuses as of 01/17/2025) Resolved Problems Problem Noted Date Diagnosed Date [...] as of this encounter (statuses as of 01/17/2025) Immunizations Name Administration Dates Next Due TDAP, [...] encounter Miscellaneous Notes * Telephone Encounter - Safia Luna LPN [...] EDT Pt wanting to know if his [facility] paperwork is completed and if a fax was received today for Short term disability. * Telephone Encounter - Joe Solis OSA - 01/10/2025 3:00 PM EDT Patient came in to drop off [facility] paperwork that needs filled out by PCP. Please fax back to [phone] when completed. documented in this encounter Plan of Treatment Upcoming Encounters Date Type Department Care Team (Late st Contact Info) Description 01/21/2025 6:30 AM EDT Anticoagulation Centralized Clinical Pharmacy Services, Tremaine Ortiz [address] [place] [address] [place] [address] [facility], [address] [place] [address] Health Maintenance Due Date Last Done Comments [...] this encounter Medical Devices Implanted Type Area Long Chain Dyeing Machine Operator Device Identifier Shelf Expiration Date Model / Serial / Lot Graft Valved Valsalva 27mm - [id number] - [id number] Implanted:Qty: 1 on 10/09/2015 by Khalif Melgar MD [place] [facility] A[place] [facility] JACINDA : CARDIOVASCULAR 01/21/2018 [id number] / [id number] / Sut Steel 6 M654g - [id number] Implanted:Qty: 4 on 10/09/2015 by Khalif Melgar MD at [place] [facility] Chest JNJ : [employer] 06/23/2020 [id number] / / [id number] documented as of this encounter Advance Directives [...] and were consensually agreed upon. Care Teams Senior Behavioral Scientist Relationship Specialty Start Date End Date Elton Lal MD [address] [place] [address] PCP - General Family Medicine 01/08/25 documented as of this encounter
--- OUTSIDE RECORDS SUMMARY | 2025-01-26 06:38 | External Medical Summary | Summary of Care ---
Author Name Unknown Organization [facility] Address [address] [facility] [place] [address] Phone [phone] Care Team Providers Care Diabetes Education Coordinator Name Role Phone Og Broussard MD Primary Care Provider [phone] Reason for Visit * Reason Onset Date Comments Advice 12/31/2024 Encounter Details Date Type Department Care Team (Late st Contact Info) Description 12/31[facility]20[facility] [address] [facility] [place] [address] Yayo Szymanski PA-C [address] [facility] [place] [address] Advice Allergies Active Allergy Reactions Criticality Noted Date Comments Lisinopril 01/07/2011 ED Morphine And Codeine 10/27/2015 "goofy and combative" documented as of this encounter (statuses as of 01/03/2025) Medications [email or web address] ULTRA SYSTEM W/DEVICE KITIndications:D M type 2, [...] MOUTH EVERY MORNING 90 Tablet 5 Active documented as of this encounter (statuses as of 01/03/2025) Active Problems Problem Noted Date Diagnosed Date [...] as of this encounter (statuses as of 01/03/2025) Resolved Problems Problem Noted Date Diagnosed Date [...] as of this encounter (statuses as of 01/03/2025) Immunizations Name Administration Dates Next Due TDAP, [...] of Assessment Author No 06/25/2019 12:17 AM Dashawn uHerta RN * Are you blind or do you have serious difficulty seeing, even when wearing glasses? Answer Date of Assessment Author No 06/25/2019 12:17 AM Dashawn Huerta RN * Do you have serious difficulty walking or climbing stairs? (5 years old or older) Answer Date of Assessment Author No 06/25/2019 12:17 AM Dashawn Huerta RN * Do you have difficulty dressing or bathing? (5 years old or older) Answer Date of Assessment Author No 06/25/2019 12:17 AM Dashawn Huerta RN * Because of a physical, mental, or emotional condition, do you have difficulty doing errands alone such as visiting a doctor’s office or shopping? (15 years old or older) Answer Date of Assessment Author No 06/25/2019 12:17 AM Dashawn Huerta RN documented as of this encounter Mental Status * Because of a physical, mental, or emotional condition, do you have serious difficulty concentrating, remembering, or making decisions? (5 years old or older) Answer Entry Date Author No 06/25/2019 12:17 AM Dashawn Huerta RN documented in this encounter Miscellaneous Notes * Telephone Encounter - Nydia Armas OSA - 01/03/2025 1:51 PM EDT Done. 01/03/2025 * Telephone Encounter - Yayo Szymanski PA-C - 01/02/2025 9:33 AM EDT See MyG. Patient needs acute OV to evaluate new symptoms. Forwarded to scheduling. * Telephone Encounter - Kristie Latif OSA - 01/01/2025 12:38 PM EDT Pt calling. Stated disregard labs to be sent to [facility]. He's not going to get those done. He is asking if Dr. Szymanski can please give him a call at [phone] when she is able. Please advise. * Telephone Encounter - Yayo Szymanski PA-C - 01/01/2025 10:11 AM EDT Need clarification - is patient actually asking for his PT/INR orders? * Telephone Encounter - Dee Dee Burgess LPN - 01/01/2025 9:09 AM EDT Called pt, he is aware excuse note is ready for roller picker, He states that states that he is going to drop off [employer] form to have him covered due to having a lot of appointment, and he doesn't want the work excuse. pt states that he want to get a thrombin blood work done as well. Please advise. He states that he wants the lab order to be sent to [facility]. * Telephone Encounter - Yayo Szymanski PA-C - 12/31/2024 3:39 PM EDT Ok for note. * Telephone Encounter - Nicolette English OSA - 12/31/2024 10:02 AM EDT School or Work Note?: Work Has patient been seen for the current issue?Yes, patient has been seen for chest pain causing missed work/school (Call Details not required). Dates Missed: 12/26, 12/27, , 01/01 Date Returnin/12 Note will be: Loaded to My Chart Fax number or phone number to call when note is completed: N/A documented in this encounter Plan of Treatment Upcoming Encounters Date Type Department Care Team (Late st Contact Info) Description 01/14/2025 6:30 AM EDT Anticoagulation Central[facility] Clinical [facility] Services, Tremaine Ortiz [address] [place] [address] [place] [address] [place] [address] Health Maintenance Due Date Last Done Comments [...] Foot Exam 08/25/2021 08/25/2020, 0 01/29/2019, 02/15/2012 HbA1c 10/29/2022 04/28/2022, 03/24, 11/18/2020, Additional history exists Albumin/Creatinine Ratio 04/28/2023 07 022, 11/18/2020, 01/24/2018, Additional history exists GFR 04/28/2023 04/28/2022, 03/24, 03/24/2021, Additional history exists COVID-19 Vaccine ( season) 2024 Influenza Vaccine (FLU shot) (#1) 2024 Depression Screening 09/03/2025 09/03/2024 Diabetic Eye Exam 09/03/2025 01/07/2011 Postponed from 01/08/2012 (Done Elsewhere) Lipid Panel 06/01/2029 06/01/2024, 07/0 03/2022, 11/18/2020, Additional history exists DTap/Tdap Vaccines (4 - [...] this encounter Medical Devices Implanted Type Area Feed In Worker Device Identifier Shelf Expiration Date Model / Serial / Lot Graft Valved Valsalva 27mm - [id number] - [id number] Implanted:Qty: 1 on 10/09/2015 by Khalif Melgar MD at [place] [facility] Aorta [address] JACINDA : CARDIOVASCULAR 01/21/2018 [id number]-[id number] / [id number] / Sut Steel 6 M654g - [id number] Implanted:Qty: 4 on 10/09/2015 by Khalif Melgar MD at OR [facility] Chest JNJ : [employer] 06/23/2020 [id number] / / [id number] documented as of this encounter Advance Directives [...] and were consensually agreed upon. Care Teams Diabetes Education Coordinator Relationship Specialty Start Date End Date Og Broussard MD [address] [place] [address] PCP - General 02/14/08 documented as of this encounter
--- OUTSIDE RECORDS SUMMARY | 2025-01-26 06:38 | External Medical Summary | Summary of Care ---
Author Name Unknown Organization [facility] Address [address] [facility] [place] [address] Phone [phone] Care Team Providers Care Clinical Rn Manager Name Role Phone Og Broussard MD Primary Care Provider +1- [phone] Reason for Visit * Reason Comments Follow Up Patient is here toda y for a follow up. He states the pain that he has been having has since developed a "bump" on the right chest to the right of the sternum, causing him discomfort when he coughs. He was seen by Yayo Rubin 12/28/2024 and cardiology this morning around 9:00. Encounter Details Date Type Department Care Team (Late st Contact Info) Description 01/03/2025 7:40 AM EDT Office Visit [facility] [address] [facility] [place] [address] Elton Lal MD [address] [place] [address] Chest wall pain* Allergies Active Allergy Reactions Criticality Noted Date Comments Lisinopril 01/07/2011 ED Morphine And Codeine 10/27/2015 "goofy and combative" documented as of this encounter (statuses as of 01/03/2025) Medications Surrounds[employer] SYSTEM W/DEVICE KITIndications:D M type 2, goal [...] PM EDT documented as of this encounter Last Filed Vital Signs Vital Sign Reading Time Taken Comments Blood Pressure 130/68 01/03/2025 7:37 AM EDT Pulse 67 01/03/2025 7:37 AM EDT Temperature 36 °C (96.8 °F) 01/03/2025 7:37 AM EDT Respiratory Rate 18 01/03/2025 7:37 AM EDT Oxygen Saturation 98% 01/03/2025 7:37 AM EDT Inhaled Oxygen Concentration - - Weight 106.9 kg (235 lb 11.2 oz) 01/03/2025 7:37 AM EDT Height 193 cm (6' 4") 01/03/2025 7:37 AM EDT Body Mass Index 28.69 01/03/2025 7:37 AM EDT documented in this encounter Functional Status * Are you deaf or do you have serious difficulty hearing? Answer Date of Assessment Author No 06/25/2019 12:17 AM EDT Dashawn Sue RN * Are you blind [...] of Assessment Author No 06/25/2019 12:17 AM EDDashawn Patel RN * Because of a physical, mental, [...] Dashawn Huerta RN documented in this encounter Progress Notes * Elton Lal MD - 01/03/2025 7:53 AM EDT Subjective: Raul Huitron is a 59 year old male. Chief Complaint Patient presents with Follow Up Patient is here today for a follow up. He states the pain that he has been having has since developed a "bump" on the right chest to the right of the sternum, causing him discomfort when he coughs. He was seen by Yayo Rubin 12/28/2024 and cardiology this morning around 9:00. HPI: 59-year-old seen today has a follow-up to visit when he saw Yayo Hudson on December 28. He has been bothered with right low anterior chest pain. This is definitely related to movement sneezing coughing. There is no exertional component to. There is no relationship to eating or any heartburn. He has not had any right chest or back rash. He really has not been taking anything for it. He avoids nonsteroidal anti-inflammatory agents as he is on chronic Coumadin therapy for his aortic valve mechanical-replacement. Chest x-ray was unrevealing. Echocardiogram that was just completed showed ejection fraction of 60% in really no change from prior. He has not had fever and he has not had respiratory infection type symptoms i.e. persistent cough sore throat or nasal congestion. 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 This does include some climbing ladders and significant physical work. 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 Patient Active Problem List Diagnosis HTN, goal below 140/90 Type 2 diabetes mellitus with hemoglobin A1c goal of less than 8.0% ([facility]) Dyslipidemia Thoracic ascending aortic aneurysm ([facility]) Status post mechanical aortic valve replacement ILD (interstitial lung disease) ([facility]) Current Outpatient Medications Medication Sig Dispense Refill SurroundsMe SYSTEM W/DEVICE KIT Use up to four times a day as directed 1 Kit 0 Like[employer]fm ULTRA TEST STRP Use up to four times a day as directed 100 Strip 11 Jump[employer] Wireless CorporationUCH ULTRASOFT LANCETS MISC Use up to four times a day as directed 1 Box 11 aspirin 81 MG chewable tablet Take 2 Tabs by mouth daily. 60 Tab 3 Sildenafil Citrate 20 MG Oral Tablet (Revatio) Take 2-3 tabs at least 1 hour prior to intercourse 30 Tablet 5 Vitamin B-12 1000 MCG Oral Tablet (Cyanocobalamin) TAKE 1 TABLET BY MOUTH ONCE DAILY 90 Tablet 3 Metoprolol Succinate ER 100 MG Oral Tablet Extended Release 24 Hour (toPROL XL) TAKE 1/2 TABLET BY MOUTH TWICE DAILY, IN THE MORNING AND EVENING. 90 Tablet 1 Glimepiride 2 MG Oral Tablet (Amaryl) TAKE 1 TABLET BY MOUTH ONCE DAILY WITH THE FIRST MAIN MEAL OFTHE DAY 90 Tablet 1 Warfarin Sodium 5 MG Oral Tablet (Jantoven) Take 1 to 3 tablets by mouth daily as directed by [facility] on phone. 270 Tablet 1 Losartan Potassium 25 MG Oral Tablet (Cozaar) Take 1 Tablet by mouth in the morning. 90 Tablet 1 metFORMIN HCl 500 MG Oral Tablet (Glucophage) TAKE 2 TABLETS BY MOUTH TWICE DAILY with morning and evening meals 360 Tablet 1 Rosuvastatin Calcium 5 MG Oral Tablet (Crestor) TAKE 1 TABLET BY MOUTH EVERY MORNING 90 Tablet 0 No current facility-administered medications for this visit. Review of patient's allergies indicates: Allergen Reactions Lisinopril ED Morphine And Codeine "goofy and combative" Objective: BP 130/68 (BP Site: Left Arm, BP Position: Sitting, BP Cuff Size: Regular) | Pulse 67 | Temp 96.8 °F (36 °C) (Tympanic) | Resp 18 | Ht 6' 4" (1.93 m) | Wt 235 lb 11.2 oz (106.9 kg) | SpO2 98% | BMI28.69 kg/m² | BSA 2.39 m² Physical Exam: CONST: alert, pleasant, no acute distress HEAD: normocephalic, atraumatic Eyes - PERRLA, EOM'I OROPHARYNX: clear, no swelling or erythema, moist CV: regular rate and rhythm, no murmur CHEST: clear to auscultation bilaterally, no rales or wheezing. He has a focal area of tenderness just right lateral to the lower border of the sternal body and just above the lower border of the chest wall. There feels to be some swelling in this area. There was no evidence of a vesicular rash thechest or back. ABD: soft, non tender, non distended, no masses or hepatosplenomegaly ASSESSMENT/PLAN: Chest wall pain (Primary)/costochondritis-explained my findings with the patient. I do not think further cardiac evaluation necessary although he does have an appointment to see Cardiology this afternoon which I asked him to keep. Add lidocaine 5% patch on 12 hours off 12 hours. May use acetaminophen 500 mg, 2 tablets 3 times a day but not more than that. Can also try ice and or heat to the area intermittently. I would suggest he try both in if 1 works better to stick with that. If he does not see some improvement over the next week or 2, I think it would be worthwhile having him see pain management I told him that he should be off of work likely for the next 3 weeks. He is going to get an FMLA form for me to complete in marked as continuous time off till the end of January with the hopes that he can return sooner. Elton Lal MD documented in this encounter Nursing Notes * Lizzy Hilliard LPN - 01/03/2025 7:39 AM EDT The patient has been properly identified by confirmation of name and date of . Chief Complaint Patient presents with Follow Up Patient is here today for a follow up. He states the pain that he has been having has since developed a "bump" on the right chest to the right of the sternum, causing him discomfort when he coughs. He was seen by Yayo Rubin 12/28/2024 and cardiology this morning around 9:00. documented in this encounter Plan of Treatment Upcoming Encounters Date Type Department Care Team (Late st Contact Info) Description 01/14/2025 6:30 AM EDT Anticoagulation Centralized Clinical Pharmacy Services, Tremaine Ortiz [address] [place] [address] [place] [address] [facility], [address] [place] [address] Health Maintenance Due Date Last Done Comments [...] 11/18/2020, Additional history exists Albumin/Creatinine Ratio 04/28/2023 022, 11/18/2020, 01/24/2018, Additional history exists GFR 04/28/2023 04/28/2022, 03/24, 03/24/2021, Additional history exists COVID-19 Vaccine ( - season) 2024 Influenza [...] this encounter Medical Devices Implanted Type Area Roll Edge Stitcher Hand Device Identifier Shelf Expiration Date Model / Serial / Lot Graft Valved Valsalva 27mm - [id number] - [id number] Implanted:Qty: 1 on 10/09/2015 by Khalif Melgar MD at OR [facility] [place] Aorta ST JACINDA : CARDIOVASCULAR 01/21/2018 [id number]-[id number] / [id number] / Sut Steel 6 M654g - [id number] Implanted:Qty: 4 on 10/09/2015 by Khalif Melgar MD at OR [facility] [facility] Chest JNJ : [employer] 06/23/2020 [id number] / / [id number] documented as of this encounter Visit Diagnoses Diagnosis Chest discomfort- Primary Other chest pain Status post mechanical aortic valve replacement Aneurysm of ascending aorta without rupture (HCC) Chest wall pain- Primary Painful respiration documented in this encounter Advance Directives * Full Code [...] and were consensually agreed upon. Care Teams Clinical Rn Manager Relationship Specialty Start Date End Date Og Broussard MD [address] [place] [address] PCP - General 02/14/08 documented as of this encounter
--- OUTSIDE RECORDS SUMMARY | 2025-01-26 06:38 | External Medical Summary | Summary of Care ---
Author Name Unknown Organization [facility] Address [address] [facility] [place] [address] Phone [phone] Care Team Providers Care Global Category Manager Name Role Phone Elton Lal MD Primary Care Provider [phone] Reason for Visit * Reason Onset Date Comments Forms Request 01/10/2025 Encounter Details Date Type Department Care Team (Late st Contact Info) Description 01/10/[address] [facility] [address] [place] [address] Elton Lal MD [address] [place] [address] Forms Request Allergies Active Allergy Reactions Criticality Noted Date Comments Lisinopril 01/07/2011 ED Morphine And Codeine 10/27/2015 "goofy and combative" documented as of this encounter (statuses as of 01/21/2025) Medications [employer]-Share[employer]OUCH ULTRA SYSTEM W/DEVICE KITIndications:D M type 2, [...] encounter Miscellaneous Notes * Telephone Encounter - Elton Lal MD [...] FLMA paperwork needs to be faxed to [facility] and the short term disability needs to be faxed to [facility]. Patient needs both paperwork completed by [...] out by PCP. Please fax back to [phone] when completed. documented in this encounter Plan of Treatment Upcoming Encounters Date Type Department Care Team (Late st Contact Info) Description 01/29/2025 6:45 PM EDT Anticoagulation Centralized Clinical Pharmacy Services, Tremaine Ortiz [address] [place] [address] [place] [address] [place] [address] Health Maintenance Due Date Last Done Comments [...] this encounter Medical Devices Implanted Type Area Hollow Tile Partition Erector Device Identifier Shelf Expiration Date Model / Serial / Lot Graft Valved Valsalva 27mm - [id number] - [id number] Implanted:Qty: 1 on 10/09/2015 by Khalif Melgar MD at [place] [facility] [place] Aorta ST JACINDA : CARDIOVASCULAR 01/21/2018 [id number]-[id number] / [id number] / Sut Steel 6 M654g - [id number] Implanted:Qty: 4 on 10/09/2015 by Khalif Melgar MD at OR [facility] Chest JNJ : [employer] 06/23/2020 M654G / / [id number] documented as of this encounter Advance Directives [...] and were consensually agreed upon. Care Teams Global Category Manager Relationship Specialty Start Date End Date Elton Lal MD [address] [facility] [place] [address] PCP - General Family Medicine 01/08/25 documented as of this encounter
--- OUTSIDE RECORDS SUMMARY | 2025-01-26 06:38 | External Medical Summary | Summary of Care ---
Author Name Unknown Organization [facility] Address [address] [place] [address] Phone [phone] Care Team Providers Care Journeyman Power Plant Operator Name Role Phone Og Broussard MD Primary Care Provider [phone] Reason for Visit * Reason Onset Date Comments Referral 12/31/2024 valve Encounter Details Date Type Department Care Team (Late st Contact Info) Description 12/31/2024 Telephone Cardiology, [facility] [address] [facility] [place] [address] Tony Munoz MD [address] [place] [address] Referral (valve) Allergies Active Allergy Reactions Criticality Noted Date Comments Lisinopril 01/07/2011 ED Morphine And Codeine 10/27/2015 "goofy and combative" documented as of this encounter (statuses as of 01/06/2025) Medications [employer] SemiconductorTOUCH ULTRA SYSTEM W/DEVICE KITIndications:D M type 2, [...] as of this encounter (statuses as of 01/06/2025) Active Problems Problem Noted Date Diagnosed Date [...] as of this encounter (statuses as of 01/06/2025) Resolved Problems Problem Noted Date Diagnosed Date [...] as of this encounter (statuses as of 01/06/2025) Immunizations Name Administration Dates Next Due TDAP, [...] 06/25/2019 12:17 AM Dashawn Huerta RN * Are you blind or do [...] encounter Miscellaneous Notes * Telephone Encounter - Nieves Hopkins OSA - 01/03/2025 9:11 PM EDT Please triage valve referral * Telephone Encounter - Nicolette English OSA - 12/31/2024 9:59 AM EDT Person calling: Raul Relationship to patient: self Phone/Fax to return call: [phone] Reason for call(brief): appointment Pharmacy: N/A Provider Name:Dr. Munoz Detailed message to office:Patient has valve referral due to: Chest discomfort [R07.89] Status post mechanical aortic valve replacement [Z95.2] Aneurysm of ascending aorta without rupture (HCC) [I71.21] Please advise. documented in this encounter Plan of Treatment Upcoming Encounters Date Type Department Care Team (Late st Contact Info) Description 01/14/2025 6:30 AM EDT Anticoagulation Centralized Clinical Pharmacy Services, Tremaine Ortiz [address] [place] [address] [place] [address] [facility], [address] [place] [address] Health Maintenance Due Date Last Done Comments [...] 08/25/2020, 0 01/29/2019, 02/15/2012 HbA1c 10/29/2022 04/28/2022, 0605/2021, 11/18/2020, Additional history exists Albumin/Creatinine Ratio 04/28/2023 [...] this encounter Medical Devices Implanted Type Area Call Center Nurse Device Identifier Shelf Expiration Date Model / Serial / Lot Graft Valved Valsalva 27mm - [id number] - [id number] Implanted:Qty: 1 on 10/09/2015 [place] Khalif Mel[place] [facility] JAC[place]DA : CARDIOVASCULAR 01/21/2018 [id number]-[id number] / [id number] / Sut Steel 6 M654g - [id number] Implanted:Qty: 4 on 10/09/2015 by Khalif Melgar [place] [facility] [place] JNJ : [employer] 06/23/2020 M654G / / [id number] documented as of this encounter Advance Directives [...] and were consensually agreed upon. Care Teams Journeyman Power Plant Operator Relationship Specialty Start Date End Date Og Broussard MD [address] [facility] [place] [address] PCP - General 02/14/08 documented as of this encounter
--- OUTSIDE RECORDS SUMMARY | 2025-01-26 06:38 | External Medical Summary | Summary of Care ---
Author Name Unknown Organization [facility] Address [address] [facility] [place] [address] Phone [phone] Care Team Providers Care Ben Day Artist Name Role Phone Elton Lal MD Primary Care Provider [phone] Reason for Visit * Reason Onset Date Comments Forms Request 01/10/2025 Encounter Details Date Type Department Care Team (Late st Contact Info) Description 01/10/2025 Telephone [facility] [address] [facility] [place] [address] Elton Lal MD [address] [place] [address] Forms Request Allergies Active Allergy Reactions Criticality Noted Date Comments Lisinopril 01/07/2011 ED Morphine And Codeine 10/27/2015 "goofy and combative" documented as of this encounter (statuses as of 01/18/2025) Medications ZeroDesktopTOUCH ULTRA SYSTEM W/DEVICE KITIndications:D M type 2, [...] as of this encounter (statuses as of 01/18/2025) Active Problems Problem Noted Date Diagnosed Date [...] as of this encounter (statuses as of 01/18/2025) Resolved Problems Problem Noted Date Diagnosed Date [...] as of this encounter (statuses as of 01/18/2025) Immunizations Name Administration Dates Next Due TDAP, [...] EDT Pt wanting to know if his [facility] paperwork is completed and if a fax was received today for Short term disability. * Telephone Encounter - Joe Solis OSA - 01/10/2025 3:00 PM EDT Patient came in to drop off [facility] paperwork that needs filled out by PCP. Please fax back to [phone] when completed. documented in this encounter Plan of Treatment Upcoming Encounters Date Type Department Care Team (Late st Contact Info) Description 01/21/2025 6:30 AM EDT Anticoagulation Centralized Clinical Pharmacy Services, Tremaine Ortiz [address] [place] [address] [place] [address] [facility], [address] [place] [address] Health Maintenance Due Date Last Done Comments [...] this encounter Medical Devices Implanted Type Area Home Visitor Device Identifier Shelf Expiration Date Model / Serial / Lot Graft Valved Valsalva 27mm - [id number] - [id number] Implanted:Qty: 1 on 10/09/2015 by Khalif Melgar MD [place] [facility] [place] [facility] JACINDA : CARDIOVASCULAR 01/21/2018 [id number]-[id number] / [id number] / Sut Steel 6 M654g - [id number] Implanted:Qty: 4 on 10/09/2015 by Khalif Melgar MD [place] [facility] Chest JNJ : [employer] 06/23/2020 M654G / / [id number] documented as of this encounter Advance Directives [...] and were consensually agreed upon. Care Teams Ben Day Artist Relationship Specialty Start Date End Date Elton Lal MD 226 [place] [address] PCP - General Family Medicine 01/08/25 documented as of this encounter
--- OUTSIDE RECORDS SUMMARY | 2025-01-26 06:38 | External Medical Summary | Summary of Care ---
Author Name Unknown Organization [facility] Address [address] [facility] [place] [address] Phone [phone] Care Team Providers Care Chef Head Name Role Phone Elton Lal MD Primary Care Provider [phone] Reason for Visit * Reason Onset Date Comments Forms Request 01/10/2025 Encounter Details Date Type Department Care Team (Late st Contact Info) Description 01/10/2025 Telephone [facility] [address] [facility] [place] [address] Elton Lal MD 226 [place] [address] Forms Request Allergies Active Allergy Reactions Criticality Noted Date Comments Lisinopril 01/07/2011 ED Morphine And Codeine 10/27/2015 "goofy and combative" documented as of this encounter (statuses as of 01/16/2025) Medications LendioTOUCH ULTRA SYSTEM W/DEVICE KITIndications:D M type 2, [...] as of this encounter (statuses as of 01/16/2025) Active Problems Problem Noted Date Diagnosed Date [...] as of this encounter (statuses as of 01/16/2025) Resolved Problems Problem Noted Date Diagnosed Date [...] as of this encounter (statuses as of 01/16/2025) Immunizations Name Administration Dates Next Due TDAP, [...] encounter Miscellaneous Notes * Telephone Encounter - Mark Morgan OSA - 01/16/2025 2:52 PM EDT Pt wanting to know if his FMLA paperwork is completed and if a fax was received today for Short term disability. * Telephone Encounter - Joe Solis OSA - 01/10/2025 3:00 PM EDT Patient came in to drop off FMLA paperwork that needs filled out by PCP. Please fax back to [phone] when completed. documented in this encounter Plan of Treatment Upcoming Encounters Date Type Department Care Team (Late st Contact Info) Description 01/21/2025 6:30 AM EDT Anticoagulation Centralized Clinical Pharmacy Services, Tremaine Ortiz [address] [place] [address] [place] [address] [place] [address] Health Maintenance Due Date Last Done Comments [...] this encounter Medical Devices Implanted Type Area Business Transformation Consultant Device Identifier Shelf Expiration Date Model / Serial / Lot Graft Valved Valsalva 27mm - [id number] - [id number] Implanted:Qty: 1 on 10/09/2015 by Khalif Melgar MD at [place] [facility] Aorta [address] JACINDA : CARDIOVASCULAR 01/21/2018 [id number]-515 / [id number] / Sut Steel 6 M654g - [id number] Implanted:Qty: 4 on 10/09/2015 by Khalif Melgar MD at [place] [facility] Chest JNJ : [employer] 06/23/2020 M654G / / [id number] documented as of this encounter Advance Directives [...] and were consensually agreed upon. Care Teams Chef Head Relationship Specialty Start Date End Date Elton Lal MD [address] [facility] [address] PCP - General Family Medicine 01/08/25 documented as of this encounter
--- OUTSIDE RECORDS SUMMARY | 2025-01-26 06:38 | External Medical Summary | Summary of Care ---
Author Name Unknown Organization [facility] Address [address] [facility] [place] [address] Phone [phone] Care Team Providers Care Male Model Name Role Phone Elton Lal MD Primary Care Provider [phone] Reason for Visit * Reason Onset Date Comments Fax 01/08/2025 Encounter Details Date Type Department Care Team (Late st Contact Info) Description 01/08/2025 Telephone [facility] 226 [facility] [place] [address] Og Broussard MD 226 [place] [address] Fax Allergies Active Allergy Reactions Criticality Noted Date Comments Lisinopril 01/07/2011 ED Morphine And Codeine 10/27/2015 "goofy and combative" documented as of this encounter (statuses as of 01/09/2025) Medications MedaxionUCH ULTRA SYSTEM W/DEVICE KITIndications:D M type 2, [...] as of this encounter (statuses as of 01/09/2025) Active Problems Problem Noted Date Diagnosed Date [...] as of this encounter (statuses as of 01/09/2025) Resolved Problems Problem Noted Date Diagnosed Date [...] as of this encounter (statuses as of 01/09/2025) Immunizations Name Administration Dates Next Due TDAP, [...] encounter Miscellaneous Notes * Telephone Encounter - Sandra Anderson OSA - 01/08/2025 1:31 PM EDT Noted. * Telephone Encounter - Nicolette Law OSA - 01/08/2025 1:05 PM EDT Pt calling just to inform that clinic will be receiving something from [facility] about short term disability ... May come within the next few days Dr Lal now pcp documented in this encounter Plan of Treatment Upcoming Encounters Date Type Department Care Team (Late st Contact Info) Description 01/14/2025 6:30 AM EDT Anticoagulation Centralized Clinical Pharmacy Services, Tremaine Ortiz [address] [place] [address] [place] [address] [facility], [address] [place] [address] Health Maintenance Due Date Last Done Comments [...] this encounter Medical Devices Implanted Type Area Dermatologist Device Identifier Shelf Expiration Date Model / Serial / Lot Graft Valved Valsalva 27mm - [id number] - [id number] Implanted:Qty: 1 on 10/09/2015 by Khalif Melgar [place] [facility] : CARDIOVASCULAR 01/21/2018 [id number]-515 / [id number] / Sut Steel 6 M654g - [id number] Implanted:Qty: 4 on 10/09/2015 by Khalif Melgar [place] [facility] JNJ : [employer] 06/23/2020 M654G / / [id number] documented as of this encounter Advance Directives [...] and were consensually agreed upon. Care Teams Male Model Relationship Specialty Start Date End Date Elton Lal MD 226 [place] [address] PCP - General Family Medicine 01/08/25 documented as of this encounter
--- OUTSIDE RECORDS SUMMARY | 2025-01-26 06:38 | External Medical Summary | Summary of Care ---
Author Name Unknown Organization [facility] Address [address] [facility] [place] [address] Phone [phone] Care Team Providers Care Teacher Home Therapy Name Role Phone Elton Lal MD Primary Care Provider [phone] Reason for Visit * Reason Onset Date Comments Forms Request 01/10/2025 Encounter Details Date Type Department Care Team (Late st Contact Info) Description 01/10/[address] [facility] [address] [place] [address] Elton Lal MD 226 [place] [address] Forms Request Allergies Active Allergy Reactions Criticality Noted Date Comments Lisinopril 01/07/2011 ED Morphine And Codeine 10/27/2015 "goofy and combative" documented as of this encounter (statuses as of 01/16/2025) Medications TEXbaseTOUCH ULTRA SYSTEM W/DEVICE KITIndications:D M type 2, [...] out by PCP. Please fax back to [phone] when completed. documented in this encounter Plan of Treatment Upcoming Encounters Date Type Department Care Team (Late st Contact Info) Description 01/21/2025 6:30 AM EDT Anticoagulation Central[facility] Clinical Pharm[facility] Services, Tremaine Ortiz [address] [place] [address] [place] [address] [place] [address] Health Maintenance Due Date Last Done Comments [...] this encounter Medical Devices Implanted Type Area Axle Polisher Device Identifier Shelf Expiration Date Model / Serial / Lot Graft Valved Valsalva 27mm - [id number] - [id number] Implanted:Qty: 1 on 10/09/2015 by Khalif Melgar MD [place] [facility] [place] : CARDIOVASCULAR 01/21/2018 [id number]-515 / [id number] / Sut Steel 6 M654g - [id number] Implanted:Qty: 4 on 10/09/2015 by Khalif Melgar MD [place] [facility] [place] JNJ : [employer] 06/23/2020 M654G / / [id number] documented as of this encounter Advance Directives [...] and were consensually agreed upon. Care Teams Teacher Home Therapy Relationship Specialty Start Date End Date Elton Lal MD [address] [facility] [place] [address] PCP - General Family Medicine 01/08/25 documented as of this encounter
--- OUTSIDE RECORDS SUMMARY | 2025-01-26 06:38 | External Medical Summary | Summary of Care ---
Author Name Unknown Organization [facility] Address [address] [facility] [place] [address] Phone [phone] Care Team Providers Care Boat Outboard Engine Mechanic Name Role Phone Elton Lal MD Primary Care Provider [phone] Reason for Visit * Reason Onset Date Comments Forms Request 01/18/2025 Encounter Details Date Type Department Care Team (Late st Contact Info) Description 01/18/2025 Telephone [facility] [address] [place] [address] Elton Lal MD 226 [place] [address] Forms Request Allergies Active Allergy Reactions Criticality Noted Date Comments Lisinopril 01/07/2011 ED Morphine And Codeine 10/27/2015 "goofy and combative" documented as of this encounter (statuses as of 01/18/2025) Medications SoundOutTOUCH ULTRA SYSTEM W/DEVICE KITIndications:D M type 2, [...] encounter Miscellaneous Notes * Telephone Encounter - Joe Solis OSA - 01/18/2025 4:05 PM EDT Patient dropped off forms that need to be filled out by PCP. Please fax to number provided when done. documented in this encounter Plan of Treatment Upcoming Encounters Date Type Department Care Team (Late st Contact Info) Description 01/21/2025 6:30 AM EDT Anticoagulation Centralized Clinical Pharmacy Services, Tremaine Ortiz [address] [place] [address] [place] [address] [facility], [address] [place] [address] Health Maintenance Due Date Last Done Comments [...] 2023- season) 2024 Influenza Vaccine (FLU shot) (#1) [...] this encounter Medical Devices Implanted Type Area Yield Loss Inspector Device Identifier Shelf Expiration Date Model / Serial / Lot Graft Valved Valsalva 27mm - [id number] - [id number] Implanted:Qty: 1 on 10/09/2015 [place] Khalif [place]gar [place] [facility] : CARDIOVASCULAR 01/21/2018 [id number]-515 / [id number] / Sut Steel 6 M654g - [id number] Implanted:Qty: 4 on 10/09/2015 by Khalif Melgar [place] [facility] [place] JNJ : [employer] 06/23/2020 M654G / / [id number] documented as of this encounter Advance Directives [...] and were consensually agreed upon. Care Teams Boat Outboard Engine Mechanic Relationship Specialty Start Date End Date Elton Lal MD 226 [place] [address] PCP - General Family Medicine 01/08/25 documented as of this encounter
--- OUTSIDE RECORDS SUMMARY | 2025-01-26 06:38 | External Medical Summary | Summary of Care ---
Author Name Unknown Organization [facility] Address [address] [facility] [place] [address] Phone [phone] Care Team Providers Care Manufacturing Systems Engineer Name Role Phone Elton Lal MD Primary Care Provider [phone] Reason for Visit * Reason Onset Date Comments Forms Request 01/10/2025 Encounter Details Date Type Department Care Team (Late st Contact Info) Description 01/10/2025 Telephone [facility] 226 [facility] [place] [address] Elton Lal MD 226 [place] [address] Forms Request Allergies Active Allergy Reactions Criticality Noted Date Comments Lisinopril 01/07/2011 ED Morphine And Codeine 10/27/2015 "goofy and combative" documented as of this encounter (statuses as of 01/21/2025) Medications CR[employer] Technology GmbHTOUCH ULTRA SYSTEM W/DEVICE KITIndications:D M type 2, [...] been faxed and offered for him to warehouse order picker originals. He asked that we keep originals until he knows that they have been received. 01/21/2025 * Telephone Encounter - Elton Lal MD - 01/21/2025 2:00 PM EDT Let Pt know I will complete the form later today. He could warehouse order picker at desk after 6 PM or tomorrow. * Telephone Encounter - Mamie Lobato OSA - 01/21/2025 7:30 AM EDT Patient calling in to check on the status of previous message. Patient Called after forms 5-7 business day turnaround timeframe and escalation e-mail was sent to clinic leadership. Patient states that the FLMA paperwork needs to be faxed to [facility] and the short term disability needs to be faxed to [facility]. Patient needs both paperwork completed [...] out by PCP. Please fax back to [phone] when completed. documented in this encounter Plan of Treatment Upcoming Encounters Date Type Department Care Team (Late st Contact Info) Description 01/29/2025 6:[address] [facility] Clinical Pharmacy Services, Tremaine Ortiz [address] [place] [address] [place] [address] [place] [address] Health Maintenance Due Date Last Done Comments [...] this encounter Medical Devices Implanted Type Area Three Dimensional Art Instructor Device Identifier Shelf Expiration Date Model / Serial / Lot Graft Valved Valsalva 27mm - [id number] - [id number] Implanted:Qty: 1 on 10/09/2015 by Khalif Melgar MD at [place] [facility] [place] [place] Aorta ST JACINDA : CARDIOVASCULAR 01/21/2018 [id number]-515 / [id number] / Sut Steel 6 M654g - [id number] Implanted:Qty: 4 on 10/09/2015 by Khalif Melgar MD at [place] [facility] [place] [place] Chest JNJ : [employer] 06/23/2020 M654G / / [id number] documented as of this encounter Advance Directives [...] and were consensually agreed upon. Care Teams Manufacturing Systems Engineer Relationship Specialty Start Date End Date Elton Lal MD 226 [place] [address] PCP - General Family Medicine 01/08/25 documented as of this encounter
--- OUTSIDE RECORDS SUMMARY | 2025-01-26 06:38 | External Medical Summary | Summary of Care ---
Author Name Unknown Organization [facility] Address [address] [facility] [place] [address] Phone [phone] Care Team Providers Care Electrical Maintenance Supervisor Name Role Phone Elton Lal MD Primary Care Provider [phone] Reason for Visit * Reason Onset Date Comments Forms Request 01/10/2025 Encounter Details Date Type Department Care Team (Late st Contact Info) Description 01/10/2025 Telephone [facility] [address] [place] [address] Elton Lal MD 226 [place] [address] Forms Request Allergies Active Allergy Reactions Criticality Noted Date Comments Lisinopril 01/07/2011 ED Morphine And Codeine 10/27/2015 "goofy and combative" documented as of this encounter (statuses as of 01/10/2025) Medications RockThePostTOUCH ULTRA SYSTEM W/DEVICE KITIndications:D M type 2, [...] as of this encounter (statuses as of 01/10/2025) Active Problems Problem Noted Date Diagnosed Date [...] as of this encounter (statuses as of 01/10/2025) Resolved Problems Problem Noted Date Diagnosed Date [...] as of this encounter (statuses as of 01/10/2025) Immunizations Name Administration Dates Next Due TDAP, [...] out by PCP. Please fax back to [phone] when completed. documented in this encounter Plan of Treatment Upcoming Encounters Date Type Department Care Team (Late st Contact Info) Description 01/14/2025 6:30 AM EDT Anticoagulation Centralized Clinical Pharmacy Services, Tremaine Ortiz [address] [place] [address] [place] Ar[place] [address] [facility], [address] [place] [address] Health Maintenance Due Date Last Done Comments [...] 08/25/2021 08/25/2020, 0 01/29/2019, 02/15/2012 COVID-19 Vaccine (1 - season) 2024 Influenza Vaccine (FLU shot) [...] this encounter Medical Devices Implanted Type Area Financial Aid Officer Device Identifier Shelf Expiration Date Model / Serial / Lot Graft Valved Valsalva 27mm - [id number] - [id number] Implanted:Qty: 1 on 10/09/2015 by Khalif Melgar MD [place] [facility] [place] JACINDA : CARDIOVASCULAR 01/21/2018 [id number]-515 / [id number] / Sut Steel 6 M654g - [id number] Implanted:Qty: 4 on 10/09/2015 by Khalif Melgar MD [place] [facility] [place] Chest JNJ : [employer] 06/23/2020 M654G / / [id number] documented as of this encounter Advance Directives [...] and were consensually agreed upon. Care Teams Electrical Maintenance Supervisor Relationship Specialty Start Date End Date Elton Lal MD 226 [place] [address] PCP - General Family Medicine 01/08/25 documented as of this encounter
--- OUTSIDE RECORDS SUMMARY | 2025-01-26 06:38 | External Medical Summary | Summary of Care ---
Author Name Unknown Organization [facility] Address [address] [facility] [place] [address] Phone [phone] Care Team Providers Care Telephone Clerk Telegraph Office Name Role Phone Elton Lal MD Primary Care Provider [phone] Reason for Visit * Reason Onset Date Comments Forms Request 01/10/2025 Encounter Details Date Type Department Care Team (Late st Contact Info) Description 01/10/[address] [facility] 226 [place] [address] Elton Lal MD [address] [place] [address] Forms Request Allergies Active Allergy Reactions Criticality Noted Date Comments Lisinopril 01/07/2011 ED Morphine And Codeine 10/27/2015 "goofy and combative" documented as of this encounter (statuses as of 01/18/2025) Medications MirageWorksTOUCH ULTRA SYSTEM W/DEVICE KITIndications:D M type 2, [...] EDT Pt wanting to know if his [facility] paperwork is completed and if a fax was received today for Short term disability. * Telephone Encounter - Joe Solis OSA - 01/10/2025 3:00 PM EDT Patient came in to drop off [facility] paperwork that needs filled out by PCP. Please fax back to [phone] when completed. documented in this encounter Plan of Treatment Upcoming Encounters Date Type Department Care Team (Late st Contact Info) Description 01/21/2025 6:30 AM EDT Anticoagulation Centralized Clinical Pharmacy Services, Tremaine Ortiz [address] [place] [address] [place] [address] [facility], [address] [place] [address] Health Maintenance Due Date Last Done Comments [...] this encounter Medical Devices Implanted Type Area Cloth Mercerizer Operator Device Identifier Shelf Expiration Date Model / Serial / Lot Graft Valved Valsalva 27mm - [id number] - [id number] Implanted:Qty: 1 on 10/09/2015 by Khalif Melgar MD at [place] [facility] Aorta [address] JACINDA : CARDIOVASCULAR 01/21/2018 [id number]-[id number] / [id number] / Sut Steel 6 M654g - [id number] Implanted:Qty: 4 on 10/09/2015 by Khalif Melgar MD at [place] [facility] [place] Chest JNJ : [employer] 06/23/2020 M654G / / [id number] documented as of this encounter Advance Directives [...] and were consensually agreed upon. Care Teams Telephone Clerk Telegraph Office Relationship Specialty Start Date End Date Elton Lal MD 226 [place] [address] PCP - General Family Medicine 01/08/25 documented as of this encounter
--- OUTSIDE RECORDS SUMMARY | 2025-01-26 06:39 | External Medical Summary | Summary of Care ---
Author Name Unknown Organization [facility] Address [address] [address] Phone [phone] Care Team Providers Care Furnace Hand Name Role Phone Og Broussard MD Primary Care Provider [phone]- [phone] Reason for Referral * Evaluate & Treat - Unlimited Visits (Within 10 days (routine)) - Authorized Specialty Diagnoses / Procedures Referred By Contac t Referred To Contact Cardiovascular Medicine Diagnoses Chest discomfort Status post mechanical aortic valve replacement Aneurysm of ascending aorta without rupture (HCC) Joe Reid PA-C [address] [place] [address] Phone: tel: fax: Referral ID Status Reason Start Date Expiration Date Visits Requested Visits Authorized [id number] Authorized Specialty Services Required 12/28/2024 999 999 Question Answer Referral Priority Within 10 days (routine) Where should this appointment be scheduled? [facility] * Ancillary Services (Within 10 days (routine)) - Authorized Specialty Diagnoses / Procedures Referred By Contac t Referred To Contact Cardiovascular Medicine Diagnoses Chest discomfort Status post mechanical aortic valve replacement Aneurysm of ascending aorta without rupture (HCC) Joe Reid PA-C [address] [place] [address] Phone: tel: fax: Referral ID Status Reason Start Date Expiration Date Visits Requested Visits Authorized [id number] Authorized Ancillary Services Required 12/28/2024 999 999 Question Answer Referral Priority Within 10 days (routine) Where should this appointment be scheduled? [facility] What is the preferred location to have this test performed? [facility] How soon should this test be performed? 1 Week or Less Comments Not for rest Echo. Reason for Study (chest pain or anginal equivalent): Chest pain, no CAD: discordant clinical and imaging data Select the preferred exam: No Preference Does the patient have a current EKG? Yes Does the patient have a prior history of a stent or bypass? No Aortic valve replacement (mechanical) and ascending aortic aneurysm repair 2014. Lab Results Component Value Date/Time CREATININE - GEISIN* 1.08 04/28/2022 12:00 AM CREATININE - GEISIN* 1.0 06/25/2019 03:41 AM CREATININE, RANDOM * 394 10/14/2016 04:15 PM Lab Results Component Value Date/Time BUN - [facility] 14 04/10/2021 10:32 AM BUN - [facility] 12 06/25/2019 03:41 AM Reason for Visit * Reason Comments Acute Patient is here with concerns about chest discomfort at the sternum for the past 2 weeks. No strenuous lifting. Encounter Details Date Type Department Care Team (Late st Contact Info) Description 12/28/2024 10:20 AM EST [facility] [address] [phone] Joe Reid PA-C [address] [facility] [place] [phone] Chest discomfort*; Status post mechanical aortic valve replacement; Aneurysm of ascending aorta without rupture (HCC) Allergies Active Allergy Reactions Criticality Noted Date Comments Lisinopril 01/07/2011 ED Morphine And Codeine 10/27/2015 "goofy and combative" documented as of this encounter (statuses as of 12/28/2024) Medications ONETOUCH ULTRA SYSTEM W/DEVICE KITIndications:D M type 2, goal A1c below 7 Use up to four times a day as directed 1 Kit 0 1 Active [employer] CyLab[employer]OU[employer] ULTRA TEST STRPIndications: DM type 2, goal A1c below 7 Use up to four times a day as directed 100 Strip 11 1 Active [employer] CyLab[employer]OU[employer] ULTRASOFT LANCETS MISCIndications: DM type 2, goal [...] as of this encounter (statuses as of 12/28/2024) Active Problems Problem Noted Date Diagnosed Date [...] as of this encounter (statuses as of 12/28/2024) Resolved Problems Problem Noted Date Diagnosed Date [...] as of this encounter (statuses as of 12/28/2024) Immunizations Name Administration Dates Next Due TDAP, [...] Sign Reading Time Taken Comments Blood Pressure 147/80 12/28/2024 10:30 AM EST Pulse 72 12/28/2024 10:30 AM EST Temperature 36 °C (96.8 °F) 12/28/2024 10: 30 AM EST Respiratory Rate 16 12/28/2024 10:3 0 AM EST Oxygen Saturation 96% 12/28/2024 10: 30 AM EST Inhaled Oxygen Concentration - - Weight 107.4 kg (236 lb 12.8 oz) 2024 10:30 AM EST Height - - Body Mass Index 28.82 09/03/2024 1:42 PM EST documented in this encounter Functional Status * Are you deaf or do you have serious difficulty hearing? Answer Date of Assessment Author No 06/25/2019 12:17 AM EDT Dashawn Sue RN * Are you blind or do you have serious difficulty seeing, even when wearing glasses? Answer Date of Assessment Author No 06/25/2019 12:17 AM EDT Dashawn Sue RN * Do you have [...] documented in this encounter Progress Notes * Joe Reid PA-C - 12/28/2024 10:35 AM EST Images from the original note were not included. Subjective Raul Huitron is a 59 year old male that presents for Acute (Patient is here with concerns about chest discomfort at the sternum for the past 2 weeks. No strenuous lifting. ) History of Present Illness The patient, with a history of mechanical aortic heart valve replacement and ascending aortic aneurysm repair in 2014, presents with a two-week history of chest pain. The pain is described as sharp, similar to a pulled muscle, and is located in the central chest area. The pain is exacerbated by deep breathing, coughing, and sneezing, but does not seem to be related to exertion. The patient deniesany recent strenuous activity that could have caused a muscle strain. He also denies any recent illness/cough or changes in his Coumadin dosage. The patient's last echocardiogram was in March 2021, during a hospitalization for COVID pneumonia. The patient reports shortness of breath with exertion, such as climbing stairs, but this has been a chronic issue since his heart surgery. He denies any gastrointestinal symptoms, such as nausea, vomiting, or difficulty swallowing. The patient is currentlytaking metoprolol and losartan. He reports being here today at the encouragement of his daughter. He has not seen Cardiology in years. Medications: Rosuvastatin Calcium 5 MG Oral Tablet (Crestor) Losartan Potassium 25 MG Oral Tablet (Cozaar) metFORMIN HCl 500 MG Oral Tablet (Glucophage) Glimepiride 2 MG Oral Tablet (Amaryl) Metoprolol Succinate ER 100 MG Oral Tablet Extended Release 24 Hour (toPROL XL) Warfarin Sodium 5 MG Oral Tablet (Jantoven) Vitamin B-12 1000 MCG Oral Tablet (Cyanocobalamin) Sildenafil Citrate 20 MG Oral Tablet (Revatio) aspirin 81 MG chewable tablet [employer] ULTRA SYSTEM W/DEVICE KIT [employer] ULTRA TEST STRP [employer] CyLabTOUCH ULTRASOFT LANCETS [facility] [place] BP 147/80 | Pulse 72 | Temp 96.8 °F (36 °C) (Temporal Artery) | Resp 16 | Wt 236 lb 12.8 oz (107.4 kg) | SpO2 96% | BMI 28.82 kg/m² | BSA 2.4 m² BP Readings from Last 3 Encounters: 12/28/24 147/80 09/03/24 132/72 08/30/23 130/78 General: alert, no distress, well nourished, and well developed Head: Normocephalic, No masses, lesions, tenderness or abnormalities Heart: regular rate & rhythm and mechanical click Lungs: lungs clear to auscultation Abdomen: abdomen soft, non-tender, normal bowel sounds, and no masses or organomegaly Extremities: no edema Musculoskeletal: Mild sternal chest discomfort with palpation, does not fully reproduce patients symptoms. Assessment and Plan Assessment & Plan Chest Pain New onset, intermittent, central chest pain for 2 weeks. Pain is sharp, worse with deep breaths, coughing, and sneezing. No associated dyspnea, nausea, or vomiting. Physical exam reveals mild tenderness in the central chest area but does not fully reproduce patients symptoms. Given the patient's history of mechanical valve replacement, the differential diagnosis includes musculoskeletal pain, pericarditis, and angina. -Order EKG and chest x-ray today. -Refer to cardiology for further evaluation and possible echocardiogram or stress testing. Anticoagulation Patient on Coumadin with recent INR of 2.8. -Continue current regimen of Coumadin. General Health Maintenance -Complete labs for cholesterol as previously ordered by Dr. Whitman. -Advise patient to seek immediate medical attention at ER if chest pain worsens. Chest discomfort Orders: EKG; Future XR CHEST 2 VIEWS CAD IMAGING REFERRAL OP Status post mechanical aortic valve replacement Orders: XR CHEST 2 VIEWS CAD IMAGING REFERRAL OP Aneurysm of ascending aorta without rupture (HCC) Orders: CAD IMAGING REFERRAL OP Wrap-Up Follow Up: Return for Xray today, Fasting Labs Soon. | For: Xray today, Fasting Labs Soon | Check-out note: CAD imaging referral placed. I spent a total of 30-39 minutes (exact time 30 mins) on the date of service in preparation, delivery, and documentation of the care provided to Raul Huitron excluding any time spent in the performance of separately billed services. documented in this encounter Nursing Notes * Mis Rico LPN - 12/28/2024 10:32 AM EST The patient has been properly identified by confirmation of name and date of . Chief Complaint Patient presents with Acute Patient is here with concerns about chest discomfort at the sternum for the past 2 weeks. No strenuous lifting. documented in this encounter Miscellaneous Notes * Addendum Note - Joe Reid PA-C - 12/28/2024 3:09 PM ESTAddended by: JOE REID on: 12/28/2024 03:09 PM Modules accepted: Orders * Assessment & Plan Note - Joe Reid PA-C - 12/28/2024 12:05 PM EST Associated Problem(s): Status post mechanical aortic valve replacement Orders: XR CHEST 2 VIEWS CAD IMAGING REFERRAL OP * Assessment & Plan Note - Joe Reid PA-C - 12/28/2024 12:05 PM EST Associated Problem(s): Thoracic ascending aortic aneurysm (HCC) Orders: CAD IMAGING REFERRAL OP documented in this encounter Plan of Treatment Upcoming Encounters Date Type Department Care Team (Late st Contact Info) Description 01/14/2025 6:30 AM EDT Anticoagulation [facility], Tremaine Ortiz [address] [place] [address] [address] [place] [phone] [facility], [address] [place] [address] Scheduled Referrals Name Type Priority Associated Diagnoses Orde r Schedule CAD IMAGING REFERRAL OP Referral Within 10 days (routine) Chest discomfort Status post mechanical aortic valve replacement Aneurysm of ascending aorta without rupture (HCC) Ordered: 12/28/2024 VAL[facility] REFERRAL OP Referral Within 10 days (routine) Chest discomfort Status post mechanical aortic valve replacement Aneurysm of ascending aorta without rupture (HCC) Ordered: 12/28/2024 Health Maintenance Due Date Last Done Comments [...] this encounter Medical Devices Implanted Type Area Forming Machine Adjuster Device Identifier Shelf Expiration Date Model / Serial / Lot Graft Valved Valsalva 27mm - [id number] - [id number] Implanted:Qty: 1 on 10/09/2015 [place] Khal[place] Melgar [place] [facility] [place] [facility] [employer] : CARDIOVASCULAR 01/21/2018 [id number] / [id number] / [employer] 6 M654g - [id number] Implanted:Qty: 4 on 10/09/2015 [place] Khalif Melgar [place] [facility] [place] Chest JNJ : [employer] 06/23/2020 [id number] / / [id number] documented as of this encounter Procedures Procedure Name Priority Date/Time Associated Diagnosis Comments XR CHEST 2 VIEWS Routine 12/28/2024 11:2 2 AM EST Chest discomfort Status post mechanical aortic valve replacement documented in this encounter Results * XR CHEST 2 VIEWS (12/28/2024 11:22 AM EST) Anatomical Region Laterality Modality Chest Digital Radiogra phy 12/28/2024 3:05 PM EST Impressions 12/28/2024 3:03 PM EST IMPRESSION No active disease. Narrative 12/28/2024 3:03 PM EST EXAM XR CHEST 2 VIEWS - 12/28/2024 11:22 am HISTORY "Central chest discomfort, worse with inspiration; s/p aortic valve replacement 2014." TECHNIQUE Frontal and lateral views of the chest were obtained. COMPARISON CHEST 1 VIEW, ACC: [id number], dated 2015-10-10 05:27:28 FINDINGS The lungs are clear. There is no pleural effusion or pneumothorax. The cardiomediastinal silhouette is within normal limits. Cardiac valve prosthesis and median sternotomy wires. Procedure Note Amado Cruz MD - 12/28/2024 EXAM XR CHEST 2 VIEWS - 12/28/2024 11:22 am HISTORY "Central chest discomfort, worse with inspiration; s/p aortic valvereplacement 2014." TECHNIQUE Frontal and lateral views of the chest were obtained. COMPARISON CHEST 1 VIEW, ACC: [id number], dated 2015-10-10 05:27:28 FINDINGS The lungs are clear. There is no pleural effusion or pneumothorax. Thecardiomediastinal silhouette is within normal limits. Cardiac valveprosthesis and median sternotomy wires. IMPRESSION IMPRESSION No active disease. us Joe Reid PA-C RADIOLOGY (RAD GENERAL) F inal Result * EKG (12/28/2024 10:55 AM EST) 12/28/2024 10:5 5 AM EST Narrative Procedure Note Phong Greenberg MD - 12/28/2024 10:55 AM EST REASON FOR STUDY: Chest discomfort x 2 weeks; s/p aortic valv CONCLUSIONS: Sinus rhythm with 1st degree AV block Left axis deviation Left ventricular hypertrophy with secondary QRS widening Abnormal ECG When compared with ECG of 24-Mar-2021 12:58, T wave inversion no longer evident in Anterior leads Ventricular Rate: 74 Atrial Rate: 74 OK Interval: 260 QRS Duration: 116 QT/QTc: 420/466 ms P-R-T [place]: 14 : -35 : 9 degrees us Joe Reid PA-C EKG Final Res ult [facility] documented in this encounter Visit Diagnoses Diagnosis Chest discomfort- Primary Other chest pain Status post mechanical aortic valve replacement Aneurysm of ascending aorta without rupture (HCC) Chest discomfort Other chest pain documented in this encounter Advance Directives * [...] and were consensually agreed upon. Care Teams Furnace Hand Relationship Specialty Start Date End Date Og Broussard MD [address] [facility] [place] [phone] PCP - General 02/14/08 documented as of this encounter
--- OUTSIDE RECORDS SUMMARY | 2025-01-26 06:39 | External Medical Summary | Summary of Care ---
Author Name Unknown Organization [facility] Address [address] [place] [facility] [place] [place] [address] Phone [phone] Care Team Providers Care Bander Name Role Phone Og Broussard MD Primary Care Provider +1- [phone] Reason for Referral * Precert (Diagnostic Medical) (Within 10 days (routine)) - Authorized Specialty Diagnoses / Procedures Referred By Contac t Referred To Contact Cardiac Studies Diagnoses Chest discomfort Status post mechanical aortic valve replacement Thoracic ascending aortic aneurysm (HCC) HTN, goal below 140/90 Procedures ECHO, COMPLETE (2D), TRANS-THORACIC Phong Greenberg MD [address] [place] [address] Phone: tel: fax: Referral ID Status Reason Start Date Expiration Date V isits Requested Visits Authorized [id number] Authorized Precert 01/04/2025 999 [id number] Encounter Details Date Type Department Care Team (Late st Contact Info) Description 12/28/2024 Orders Only Cardiology, [facility] [address] [place] [address] Phong Greenberg MD [address] [place] [address] Chest discomfort*; Status post mechanical aortic valve replacement; Thoracic ascending aortic aneurysm (HCC); HTN, goal below 140/90 Allergies Active Allergy Reactions Criticality Noted Date Comments Lisinopril 01/07/2011 ED Morphine And Codeine 10/27/2015 "goofy and combative" documented as of this encounter (statuses as of 12/28/2024) Medications FangddUCH ULTRA SYSTEM W/DEVICE KITIndications:D M type 2, goal A1c below 7 Use up to four times a day as directed 1 Kit 0 1 Active BIO WellnessTOUCH ULTRA TEST STRPIndications: DM type 2, goal A1c below 7 Use up to four times a day as directed 100 Strip 11 1 Active BIO WellnessTOUCH ULTRASOFT LANCETS MISCIndications: DM type 2, goal [...] Assessment Author No 06/25/2019 12:17 AM EDT Candie -Cristo, Thomecia, RN * Do you have difficulty dressing [...] documented in this encounter Progress Notes * Crista Sousa TECH - 12/28/2024 2:56 PM EST CAD Imaging Referral Note Raul Huitron is a 59 year old male who was referred by Yayo Szymanski PA-C, for evaluation of chest discomfort, s/p mechanical AVR, and aneurysm of ascending aorta. Reviewing Manager Party: Dr. Phong Greenberg Orders placed: Echocardiogram and recommend Cardiology follow-up (previously seen by Dr. Greenberg, last visit with Nicolette Hughes PA-C, in 2018) Test location: [facility] or [facility] location Referral priority: 1 week or less From Ms. Szymanski's Progress Note on 12/28/2024: History of Present Illness The patient, with [...] He has not seen Cardiology in years. From Jon Daley, Cardiology Progress Note on 12/18/2018: Cardiology F/U: HPI: Patient is a 53-year-old male here today for routine cardiology follow-up. Last clinic evaluation [address] Johnson in [place]. 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 He carries a history of: 1. Congenitally bicuspid aortic valve. 2. Status post aortic valve replacement and aortic root repair, receiving a 27 mm [employer] Morales's mechanical valve prosthesis with conduit, reimplantation of coronaries, and pulmonary isolation ablationon 10/09/2015. 3. Paroxysmal atrial tachycardias. 4. History of postoperative atrial fibrillation. Patient presents today feeling well. Since last cardiology visit, he had f/u with EP. Metoprolol previously increased which he tolerated without issues. He reports stable symptoms of palpitations. Occurs daily, but only short in duration. Does not cause significant symptoms. Occasionally he reportsa "bad day" where he will notified fluttering "all day". He reports increased fatigue that day but improves by morning. No sustained tachypalpitations. No chest pain or SOB. He is pleased with his symptoms and denies increased frequency or duration in palpitations since last visit. No chest pain, shortness of breath, dizziness, syncope or near syncope. No orthopnea, PND, or increased lower extremity edema. No fever, chills, cough, hematochezia, melena, or hemoptysis. IMPRESSION: 53-year-old male 1. History of prior aortic valve disease status post mechanical aortic valve replacement, stable echo findings. 2. History of SVT/Atrial tach, controlled on metoprolol. Stable symptoms 3. Chronic anticoagulation with history of mechanical valve 4. Dyslipidemia- controlled PLAN: Stable cardiac symptoms. Continue metoprolol for palpitations. Patient to report any new or worsening symptoms. Future ablation previously discussed should symptoms progress or he be intolerant of medication/ Recent echo reviewed. Stable AVR He is to continue current medications as listed above. No changes were made at today's visit. The patient agrees to the above plan and will call with additional questions or concerns. ER with all emergencies advised. Follow-up: Return in about 1 year (around 12/18/2019) or sooner if needed. Patient Active Problem List Diagnosis HTN, goal below 140/90 Type 2 diabetes mellitus with hemoglobin A1c goal of less than 8.0% (HCC) Dyslipidemia Thoracic ascending aortic aneurysm (HCC) Status post mechanical aortic valve replacement ILD (interstitial lung disease) (HCC) Current Outpatient Medications Medication Sig Dispense Refill Thumb Reading SYSTEM W/DEVICE KIT Use up to four times a day as directed 1 Kit 0 [employer] ULTRA TEST STRP Use up to four times a day as directed 100 Strip 11 [employer] ULTRASOFT LANCETS MISC Use up to four [...] No current facility-administered medications for this visit. The 10-year ASCVD risk score (Shara CARPIO, et al., 2019) is: 21.4% Values used to calculate the score: Age: 59 years Sex: Male Is Non- : No Diabetic: Yes Tobacco smoker: No Systolic Blood Pressure: 147 mmHg Is BP treated: Yes HDL Cholesterol: 32 MG/DL Total Cholesterol: 154 MG/DL Cardiac Studies: EKG 12/28/2024 (Newly acquired, unconfirmed) CONCLUSIONS: Sinus rhythm with 1st degree AV block Left axis deviation Left ventricular hypertrophy with secondary QRS widening Abnormal ECG When compared with ECG of 24-Mar-2021 12:58, T wave inversion no longer evident in Anterior leads Ventricular Rate: 74 Atrial Rate: 74 TN Interval: 260 QRS Duration: 116 QT/QTc: 420/466 ms P-R-T [place]: 14 : -35 : 9 degrees 2D Echocardiogram 04/01/2021 Interpretation Summary The examination is adequate to evaluate the referral indication. The left ventricular cavity size is normal. The LV wall thickness is mildly increased (concentric). The left ventricular wall motion is normal. The qualitative LV ejection fraction is 60-64% (normal). There is an aortic valve bileaftlet disc (St. Morales type) mechanical prosthesis present. The aortic valve prosthesis systolic gradients are normal for this type prosthesis. Prosthetic leaflets are visualized and are freely mobile Physiologic intravalvular aortic regurgitation is present. There is evidence of prior aortic root replacement. The aortic root and proximal ascending aorta are normal sized. The right ventricular systolic function is normal as assessed by tricuspid annular plane systolic excursion (TAPSE) (normal >1.7 cm). There is no evidence of pulmonary hypertension. 2D Echocardiogram 12/11/2017 The examination is adequate to evaluate the referral indication. The left ventricular cavity size is normal. The LV wall thickness is mildly increased (concentric). The left ventricular wall motion is normal. The qualitative LV ejection fraction is 55-59% (normal). There is an aortic valve bileaflet disc (St. Morales type) mechanical prosthesis present. The aortic valve prosthesis systolic gradients are normal for this type prosthesis. Physiologic intra valvular aortic regurgitation is present. There is evidence of prior aortic root replacement. The aortic root and proximal ascending aorta are normal sized. Exercise Echo 06/02/2015 Interpretation Summary The primary indication after review was deemed appropriate and the examination was performed. The stress echo is negative for inducible ischemia. No arrhythmias. Normal HR and BP response to exercise. Average exercise tolerance. Severe enlargement of the aortic root and ascending aorta. Normal LV chamber size with mild concentric LVH. Normal LV systolic function without regional wall motion abnormality, EF 55-60%. Grade II diastolic dysfunction. The aortic valve is congenitally bicuspid. The aortic valve is mildly calcified. Aortic stenosis isabsent. Mild aortic valve regurgitation is present. Stress Findings The stress EKG response showed no evidence of ischemia. Occasional PVCs were noted with stress. Baseline ECG was essentially normal. The stress test was terminated due to fatigue. Heart rate responseto stress was normal. Blood pressure response to exercise was normal. Exercise capacity is average . Crista Sousa MS, [facility] Exchange Specialist, Cardiology Imaging Program documented in this encounter Plan of Treatment Upcoming Encounters Date Type Department Care Team (Late st Contact Info) Description 01/14/2025 6:30 AM EDT Anticoagulation Centralized Clinical Pharmacy Services, Tremaine Ortiz [address] [place] [address] [place] [address] [place] [address] Scheduled Orders Name Type Priority Associated Diagnoses Orde r Schedule ECHO, COMPLETE (2D), TRANS-THORACIC Echocardiology Routine Chest discomfort Status post mechanical aortic valve replacement Thoracic ascending aortic aneurysm (HCC) HTN, goal below 140/90 Expected: 01/04/2025, Expires: 12/28/2025 Health Maintenance Due Date Last Done Comments [...] this encounter Medical Devices Implanted Type Area Whipped Topping Finisher Device Identifier Shelf Expiration Date Model / Serial / Lot Graft Valved Valsalva 27mm - [id number] - [id number] Implanted:Qty: 1 on 10/09/2015 by Khalif Melgar MD at [place] [facility] [place] Aorta [facility] MORALES : CARDIOVASCULAR 01/21/2018 [id number] / [id number] / Sut Steel 6 M654g - [id number] Implanted:Qty: 4 on 10/09/2015 by Khalif Melgar MD at [place] [facility] [place] Chest JNJ : [employer] 06/23/2020 M654G / / [id number] documented as of this encounter Visit Diagnoses Diagnosis Chest discomfort- Primary Other chest pain Status post mechanical aortic valve replacement Aneurysm of ascending aorta without rupture (HCC) Chest discomfort- Primary Other chest pain Status post mechanical aortic valve replacement Thoracic ascending aortic aneurysm (HCC) Thoracic aneurysm without mention of rupture HTN, goal below 140/90 Unspecified essential hypertension documented in this encounter Advance Directives * [...] and were consensually agreed upon. Care Teams Bander Relationship Specialty Start Date End Date Og Broussard MD [address] [facility] [place] [address] PCP - General 02/14/08 documented as of this encounter
--- OUTSIDE RECORDS SUMMARY | 2025-01-26 06:39 | External Medical Summary | Summary of Care ---
Author Name Unknown Organization [facility] Address [address] [facility] [place] [address] Phone [phone] Care Team Providers Care Sensitizer Name Role Phone Og Broussard MD Primary Care Provider +1- [phone] Reason for Referral * Evaluate & Treat - Unlimited Visits (Within 10 days (routine)) - Authorized Specialty Diagnoses / Procedures Referred By Contac t Referred To Contact Cardiovascular Medicine Diagnoses Chest discomfort Status post mechanical aortic valve replacement Aneurysm of ascending aorta without rupture (HCC) Joe Reid PA-C [address] [place] [address] Phone: tel: fax: Referral ID Status Reason Start Date Expiration Date Visits Requested Visits Authorized [id number] Authorized Specialty Services Required 12/28/2024 999 999 Question Answer Referral Priority Within 10 days (routine) Where should this appointment be scheduled? [facility] * Ancillary Services (Within 10 days (routine)) - Authorized Specialty Diagnoses / Procedures Referred By Contac t Referred To Contact Cardiovascular Medicine Diagnoses Chest discomfort Status post mechanical aortic valve replacement Aneurysm of ascending aorta without rupture (HCC) Joe Reid PA-C [address] [place] [address] Phone: tel: fax: Referral ID Status Reason Start Date Expiration Date Visits Requested Visits Authorized [id number] Authorized Ancillary Services Required 12/28/2024 999 999 [...] Description 12/28/2024 10:20 AM EST [facility] [address] [place] [phone] Joe Reid PA-C [address] [facility] [place] [address] Chest discomfort*; Status post mechanical aortic valve [...] as directed 1 Kit 0 1 Active PadProofTOUCH ULTRA TEST STRPIndications: DM type 2, goal A1c below 7 Use up to four times a day as directed 100 Strip 11 1 Active PadProofTOUCH ULTRASOFT LANCETS MISCIndications: DM type 2, goal [...] Tablet (Revatio) aspirin 81 MG chewable tablet Car Throttle ULTRA SYSTEM W/DEVICE KIT Car Throttle ULTRA TEST STRP PadProofTOUCH ULTRASOFT LANCETS [facility] [place] Objective BP 147/80 | Pulse 72 | [...] Anticoagulation Centralized Clinical Pharmacy Services, Tremaine Ortiz [address] [place] [address] [place] [address] [facility], [address] [place] [address] Scheduled Referrals Name Type Priority Associated Diagnoses [...] this encounter Medical Devices Implanted Type Area Commercial Door Installer Device Identifier Shelf Expiration Date Model / Serial / Lot Graft Valved Valsalva 27mm - [id number] - [id number] Implanted:Qty: 1 on 10/09/2015 by Khalif Melgar [place] [facility] [place] [facility] [employer]ACINDA : CARDIOVASCULAR 01/21/2018 [id number]-[id number] / [id number] / Sut Steel 6 M654g - [id number] Implanted:Qty: 4 on 10/09/2015 by Khalif Melgar MD [place] [facility] [place] Chest JNJ : [employer] 06/23/2020 M654G / / [id number] documented as of this encounter Procedures Procedure [...] were obtained. COMPARISON CHEST 1 VIEW, ACC: [id number], dated 2015-10-10 05:27:28 FINDINGS The lungs are [...] were obtained. COMPARISON CHEST 1 VIEW, ACC: [id number], dated 2015-10-10 05:27:28 FINDINGS The lungs are [...] leads Ventricular Rate: 74 Atrial Rate: 74 SD Interval: 260 QRS Duration: 116 QT/QTc: 420/466 ms P-R-T [place]: 14 : -35 : 9 degrees us Joe Reid PA-C EKG Final Res ult [facility] documented in this encounter Visit [...] and were consensually agreed upon. Care Teams Sensitizer Relationship Specialty Start Date End Date Og Broussard MD [address] [facility] [place] [address] PCP - General 02/14/08 documented as of this encounter
--- OUTSIDE RECORDS SUMMARY | 2025-01-26 06:39 | External Medical Summary | Summary of Care ---
Author Name Unknown Organization [facility] Address [address] [facility] [place] [address] Phone [phone] Care Team Providers Care Biometrics Head Name Role Phone Og Broussard MD Primary Care Provider +1- [phone] Reason for Visit * Reason Onset Date Comments Advice 12/31/2024 Encounter Details Date Type Department Care Team (Late st Contact Info) Description 12/31/2024 [facility]phone Ltac[facility] [address] [facility] [place] [phone] Yayo Szymanski PA-C [address] [facility] [place] [address] Advice Allergies Active Allergy Reactions Criticality Noted Date Comments Lisinopril 01/07/2011 ED Morphine And Codeine 10/27/2015 "goofy and combative" documented as of this encounter (statuses as of 01/02/2025) Medications ideeliUCH ULTRA SYSTEM W/DEVICE KITIndications:D M type 2, [...] as of this encounter (statuses as of 01/02/2025) Active Problems Problem Noted Date Diagnosed Date [...] as of this encounter (statuses as of 01/02/2025) Resolved Problems Problem Noted Date Diagnosed Date [...] as of this encounter (statuses as of 01/02/2025) Immunizations Name Administration Dates Next Due TDAP, [...] encounter Miscellaneous Notes * Telephone Encounter - Yayo Szymanski PA-C - 01/02/2025 9:33 AM EDT See MyG. Patient needs acute OV to evaluate new symptoms. Forwarded to scheduling. * Telephone Encounter - Kristie Latif OSA - 01/01/2025 12:38 PM EDT Pt calling. Stated disregard labs to be sent to [facility]. He's not going to get those done. He is asking if Dr. Szymanski can please give him a call at [phone] when she is able. Please advise. * Telephone Encounter - Yayo Szymanski PA-C - 01/01/2025 10:11 AM EDT Need clarification - is patient actually asking for his PT/INR orders? * Telephone Encounter - Dee Dee Burgess LPN - 01/01/2025 9:09 AM EDT Called pt, he is aware excuse note is ready for brass pickler, He states that states that he is going to drop off FLMA form to have him covered due to having a lot of appointment, and he doesn't want the work excuse. pt states that he want to get a thrombin blood work done as well. Please advise. He states that he wants the lab order to be sent to [facility]. * Telephone Encounter - Yayo Szymanski PA-C [...] Description 01/03/2025 7:40 AM EDT Office Visit [facility] [address] [place] [phone] Elton Lal MD [address] [place] [address] 01/14/2025 6:30 AM EDT Anticoagulation Centralized Clinical Pharmacy Services, [address] [place] [address] [place] [address] 05/09/2025 11:00 AM EDT Office Visit Cardiology, [facility] [address] [place] [address] Phong Greenberg MD [address] [place] [address] Health Maintenance Due Date Last Done Comments [...] this encounter Medical Devices Implanted Type Area Floor Broker Device Identifier Shelf Expiration Date Model / Serial / Lot Graft Valved Valsalva 27mm - [id number] - [id number] Implanted:Qty: 1 on 10/09/2015 by Khalif Melgar MD at OR [facility] [place] Aorta [facility] JACINDA : CARDIOVASCULAR 01/21/2018 [id number]-[id number] / [id number] / Sut Steel 6 M654g - [id number] Implanted:Qty: 4 on 10/09/2015 by Khalif Melgar MD at OR [facility] [place] Chest JNJ : [employer] 06/23/2020 M654G / / [id number] documented as of this encounter Advance Directives [...] and were consensually agreed upon. Care Teams Biometrics Head Relationship Specialty Start Date End Date Og Broussard MD [address] [place] [address] PCP - General 02/14/08 documented as of this encounter
--- OUTSIDE RECORDS SUMMARY | 2025-01-26 06:39 | External Medical Summary | Summary of Care ---
Author Name Unknown Organization [facility] Address [address] [facility] [place] [address] Phone [phone] Care Team Providers Care Banking Paralegal Name Role Phone Og Broussard MD Primary Care Provider +1- [phone] Encounter Details Date Type Department Care Team (Late st Contact Info) Description 12/21/2024 Result Scan Unspecified Department Ladan Gregg, [facility] [address] [place] [address] <No scans attached> Allergies Active Allergy Reactions Criticality Noted Date Comments Lisinopril 01/07/2011 ED Morphine And Codeine 10/27/2015 "goofy and combative" documented as of this encounter (statuses as of 12/24/2024) Medications 1010dataTOUCH ULTRA SYSTEM W/DEVICE KITIndications:D M type 2, [...] as of this encounter (statuses as of 12/24/2024) Active Problems Problem Noted Date Diagnosed Date ILD (interstitial lung disease) 04/11/2021 Status post mechanical aortic valve replacement 10/10/2015 Thoracic ascending aortic aneurysm 09/17/2015 Overview (09/17/2015): 5.2 x 5.3cm on Chest CTA 08/07 Type 2 diabetes mellitus wit h hemoglobin A1c goal of less than 8.0% 05/08/2015 Overview (02/19/2016): ICD-10 update of inactive term Dyslipidemia 05/08/2015 HTN, goal below 140/90 12/24/2014 documented as of this encounter (statuses as of 12/24/2024) Resolved Problems Problem Noted Date Diagnosed Date [...] as of this encounter (statuses as of 12/24/2024) Immunizations Name Administration Dates Next Due TDAP, [...] Dashawn Huerta RN documented in this encounter Plan of Treatment [...] 01/08/2012 (Done Elsewhere) Lipid Panel 06/01/2029 06/01/2024, 07/03/2022, 11/18/2020, Additional history exists DTap/Tdap Vaccines (4 [...] this encounter Medical Devices Implanted Type Area Management Professionals Device Identifier Shelf Expiration Date Model / Serial / Lot Graft Valved Valsalva 27mm - [id number] - [id number] Implanted:Qty: 1 on 10/09/2015 by Khalif Melgar MD at [place] [facility] [place] Aorta [facility] JACINDA : CARDIOVASCULAR 01/21/2018 [id number]-[id number] / [id number] / Sut Steel 6 M654g - [id number] Implanted:Qty: 4 on 10/09/2015 by Khalif Melgar MD at [place] [facility] [place] Chest JNJ : [employer] 06/23/2020 M654G / / [id number] documented as of this encounter Procedures Procedure Name Priority Date/Time Associated Diagnosis Comments OUTSIDE LAB RESULTS 12/21/2024 documented in this encounter Results * OUTSIDE LAB RESULTS (12/21/2024) 12/21/2024 Ladan L Marysol [facility] LABORATORY Final Result documented in this encounter Advance Directives * [...] and were consensually agreed upon. Care Teams Banking Paralegal Relationship Specialty Start Date End Date Og Broussard MD PCP - General 02/14/08 documented as of this encounter
--- OUTSIDE RECORDS SUMMARY | 2025-01-26 06:39 | External Medical Summary | Summary of Care ---
Author Name Unknown Organization [facility] Address [address] [facility] [place] [address] Phone [phone] Care Team Providers Care Commercial Lines Insurance Agent Name Role Phone Og Broussard MD Primary Care Provider +1- [phone] Reason for Visit * Reason Comments Dosage Adjustment Via Phone (anticoag Cl inic) Encounter Details Date Type Department Care Team (Late st Contact Info) Description 12/24/2024 6:30 AM EST Anticoagulation Central[facility] Clinical Pharm[facility] Services, Tremaine Ortiz [address] [place] [address] [place] [address] [facility], [address] [place] [address] Status post mechanical aortic valve replacement* Allergies Active Allergy Reactions Criticality Noted Date Comments Lisinopril 01/07/2011 ED Morphine And Codeine 10/27/2015 "goofy and combative" documented as of this encounter (statuses as of 12/24/2024) Medications Novare SurgicalTOUCH ULTRA SYSTEM W/DEVICE KITIndications:D M type 2, [...] documented in this encounter Progress Notes * Shannen Pryor, [facility] - 12/24/2024 12:06 PM EST Contacts Contact Date/Time Type Contact Phone/Fax 12/24/2024 04:30 AM EST Email SMS () [phone] Patient not accepting updates 12/24/2024 12:02 PM EST Phone (Outgoing) Raul Huitron (Self) [phone] (M) Left Message Subjective Advised patient to contact Anticoagulation Clinic if any unusual bruising or bleeding, recent illness, changes in medication, or questions/concerns. PT/INR results, Coumadin dose instructions, and next PT/INR date communicated as noted by Pharmacist: Yes SHANNEN PRYOR CPhT 12/24/2024, 12:06 PM * Ladan Gregg RPh - 12/24/2024 11:34 AM EST Coumadin Clinic (region specific) Objective Current Warfarin Dose As of 12/24/2024 Warfarin maintenance plan: 15 mg (5 mg x 3) every Mon, Wed, Fri; 10 mg (5 mg x 2) all other days INR Result As of 12/24/2024 INR goal: 2.5-3.5 INR used for dosin.8 (12/21/2024) Assessment & Plan Warfarin Plan As of 12/24/2024 Full warfarin instructions: 15 mg every Mon, Wed, Fri; 10 mg all other days No change documented: Ladan Gregg RPh Next INR check: 01/11/2025 Repeat PT/INR in 3 week(s) Weekly dose: not changed Additional Dosing Information: Description [facility] Tech to contact patient with dose instructions as noted. Ladan Gregg RPh 12/24/2024, 11:34 AM * Stephanie Osuna PHARM Tech - 12/24/2024 8:23 AM EST Patient Phone Numbers Received verbal from [facility] for 12/21 results of INR= 2.8 Also sending fax. Thank you, Stephanie Osuna Marine Oiler [facility] ([facility]) 12/24/2024, 8:23 AM documented in this encounter Plan of Treatment Upcoming Encounters Date Type Department Care Team (Late st Contact Info) Description 01/14/2025 6:30 AM EDT Anticoagulation Centralized Clinical Pharmacy Services, Tremaine Ortiz [address] [place] [address] [place] [address] [place] [address] Health Maintenance Due Date Last Done Comments [...] 03/24, 11/18/2020, Additional history exists Albumin/Creatinine Ratio 04/28/20232 022, 11/18/2020, 01/24/2018, Additional history exists GFR [...] this encounter Medical Devices Implanted Type Area Arboreal Scientist Device Identifier Shelf Expiration Date Model / Serial / Lot Graft Valved Valsalva 27mm - [id number] - [id number] Implanted:Qty: 1 on 10/09/2015 by Khalif Melgar MD at [place] [facility] [place] Aorta ST JACINDA : CARDIOVASCULAR 01/21/2018 [id number] / [id number] / Sut Steel 6 M654g - [id number] Implanted:Qty: 4 on 10/09/2015 by Khalif Melgar MD at [place] [facility] [place] Chest JNJ : [employer] 06/23/2020 [id number] / / [id number] documented as of this encounter Procedures Procedure Name Priority Date/Time Associated Diagnosis Comments OUTSIDE LAB-PT/INR Routine 12/21/2024 documented in this encounter Results * OUTSIDE LAB-PT/INR (12/21/2024) INR-OUTSIDE LAB 2.8 12/21/2024 us History Per Patient LABORATORY Final Result documented in this encounter Visit Diagnoses Diagnosis Status post mechanical aortic valve replacement- Primary documented in this encounter Advance Directives * [...] and were consensually agreed upon. Care Teams Commercial Lines Insurance Agent Relationship Specialty Start Date End Date Og Broussard MD PCP - General 02/14/08 documented as of this encounter
--- OUTSIDE RECORDS SUMMARY | 2025-01-26 06:40 | External Medical Summary | Summary of Care ---
Author Name Unknown Organization [facility] Address [address] [place] [facility] [place] [place] [address] Phone [phone] Care Team Providers Care Bottoming Machine Operator Name Role Phone Og Broussard MD Primary Care Provider +1- [phone] Reason for Visit * Reason Onset Date Comments Physical-Exam Yearly physical. Pt states R leg will "twitch" when laying down but is okay standing and sitting. Immunizations 09/03/2024 Encounter Details Date Type Department Care Team (Late st Contact Info) Description 09/03/2024 1:40 PM EST Office Visit [facility] [address] [place] [address] Og Broussard MD [address] [place] [address] Type 2 diabetes mellitus with hemoglobin A1c goal of less than 8.0% ([facility])*; Dyslipidemia; HTN, goal below 140/90; Muscle twitch; Tremor; Need for ljfqtcqfcd-bihmwsr-bb rtussis (Tdap) vaccine Allergies Active Allergy Reactions Criticality Noted Date Comments Lisinopril 01/07/2011 ED Morphine And Codeine 10/27/2015 "goofy and combative" documented as of this encounter (statuses as of 09/03/2024) Medications Phoodeez SYSTEM W/DEVICE KITIndications: DM type 2, goal A1c below 7 Use up to four times a day as directed 1 Kit 0 1 Active ONETOUCH ULTRA TEST STRPIndications :DM type 2, goal A1c below 7 Use up to four times a day as directed 100 Strip 11 1 Active ONETOUCH ULTRASOFT LANCETS MISCIndications :DM type 2, goal A1c below 7 Use up to four times a day as directed 1 Box 11 1 Active aspirin 81 MG chewable tablet Take 2 Tabs by mouth daily. 60 Tab 3 6 Active Losartan Potassium 25 MG Oral Tablet (Cozaar)Indicat ions:HTN, goal below 140/90,Microalb uminuria Take 1 Tablet by mouth in the morning. 90 Tablet 3 3 Active Sildenafil Citrate 20 MG Oral Tablet (Revatio)Indica tions:Erectile dysfunction, unspecified erectile dysfunction type Take 2-3 tabs at least 1 hour prior to intercourse 30 Tablet 5 4 Active Metoprolol Succinate ER 100 MG Oral Tablet Extended Release 24 Hour (toPROL XL)Indications: Status post mechanical aortic valve replacement,Int ermittent palpitations,SV T (supraventricul ar tachycardia) (HCC) TAKE 1/2 TABLET BY MOUTH TWICE DAILY - IN THE MORNING AND EVENING. 90 Tablet 1 4 Active Rosuvastatin Calcium 5 MG Oral Tablet (Crestor)Indica tions:Dyslipide adriana TAKE 1 TABLET BY MOUTH EVERY MORNING 90 Tablet 1 4 Active Jantoven 5 MG Oral Tablet (Warfarin Sodium)Indicati ons:Status post mechanical aortic valve replacement Take 2 Tablets by mouth every evening. Or take as directed by the [facility] 64 Tablet 3 4 Active Glimepiride 2 MG Oral Tablet (Amaryl)Indicat ions:Type 2 diabetes mellitus with hemoglobin A1c goal of less than 8.0% (HCC) TAKE 1 TABLET BY MOUTH ONCE DAILY WITH THE FIRST MAIN MEAL OF THE DAY 90 Tablet 4 Active metFORMIN HCl 500 MG Oral Tablet (Glucophage)Ind ications:Type 2 diabetes mellitus with hemoglobin A1c goal of less than 8.0% (HCC) TAKE TWO TABLETS BY MOUTH TWICE PER DAY WITH MORNING AND EVENING MEALS. 360 Tablet 4 Active Vitamin B-12 1000 MCG Oral Tablet (Cyanocobalamin ) TAKE 1 TABLET BY MOUTH ONCE DAILY 90 Tablet 3 4 Active Ventolin HFA 108 (90 Base) MCG/ACT Inhalation Aerosol Solution Inhale 2 Puffs by mouth every 4 hours as needed for Shortness of Breath or Wheezing. 18 g 4 1 024 Discontin ued(Patie nt preferenc e/discont inuation) documented as of this encounter (statuses as of 09/03/2024) Active Problems Problem Noted Date Diagnosed Date [...] as of this encounter (statuses as of 09/03/2024) Resolved Problems Problem Noted Date Diagnosed Date [...] as of this encounter (statuses as of 09/03/2024) Immunizations Name Administration Dates Next Due TDAP, [...] Sign Reading Time Taken Comments Blood Pressure 132/72 09/03/2024 1:42 PM EST Pulse 78 09/03/2024 1:42 PM EST Temperature 36.5 °C (97.7 °F) 09/03/2024 1:42 PM ES T Respiratory Rate 16 09/03/2024 1:42 PM EST Oxygen Saturation 96% 09/03/2024 1:42 PM EST Inhaled Oxygen Concentration - - Weight 107.1 kg (236 lb 3.2 oz) 09/03/2024 1:42 PM EST Height 193 cm (6' 4") 09/03/2024 1:42 PM EST Body Mass Index 28.75 09/03/2024 1:42 PM EST documented in this [...] Dashawn Huerta RN documented in this encounter Patient Instructions * Patient Instructions* Ladan Adler MED ASSIST - 09/03/2024 1:47 PM EST ~~PATIENT INSTRUCTIONS FOR TDAP VACCINE~~ Possible side effects of TDAP vaccine, (tetanus shot), are usually mild and can include: 1. Soreness or redness at injection site 2. Low grade fever 3. Body aches You may use a fever / pain reducing medication as needed for these symptoms. LET YOUR DOCTOR KNOW IMMEDIATELY IF YOU HAVE DIFFICULTY BREATHING OR SWALLOWING, EXPERIENCE ITCHINGOF FEET OR HANDS, HAVE SWELLING OF EYES, FACE OR INSIDE OF NOSE. documented in this encounter Progress Notes * Og Broussard MD - 09/03/2024 5:17 PM EST Subjective: Raul Huitron is a 59 year old male here today for Chief Complaint Patient presents with Physical-Exam Yearly physical. Pt states R leg will "twitch" when laying down but is okay standing and sitting. Immunizations Patient presents for routine return. He has been coming in yearly but have encouraged him to consider every 6 months. We did review his most recent labs. He is stable on his current medications. Given hemoglobin A1c level, we did discuss an increase in medications for diabetes which he declines at this point. He did have some questions about metformin and kidney function. We reviewed his most recent urine and blood studies in regards to kidney function. Offered a change to Jardiance but he declines at this time. He has also noted some twitching in the right leg when he lays down at night to sleep. He has also noted a tremor with his left hand. Has been difficult at work to use a screwdriver and get it placedcorrectly on the screw without using his other hand. He is agreeable to updating his tetanus. He declines other immunizations. Past Medical History: Diagnosis Date Aortic aneurysm (HCC) Diabetes mellitus (HCC) GERD (gastroesophageal reflux disease) HTN (hypertension) Pneumonia Past Surgical History: Procedure Laterality Date ASCENDING AORTA GRAFT W/ BYPASS 10/09/2015 ASCENDING AORTIC ANEURYSM GRAFT WITH BYPASS performed by Khalif Melgar MD at OR [facility] [place] ATRIA ABLATION, LIMITED, ADD-ON 10/09/2015 OPERATIVE ABLATION AND RECONSTRUCTION ATRIA LIMITED ADD ON PROCEDURE performed by Khalif Melgar MD at OR [facility] [place] INFORMATION 1991 Nail injury right eye - r pupil larger REPLACEMENT AORTIC VALVE, BYPASS WITH PROSTHETIC VALVE N/A 10/09/2015 REPLACEMENT AORTIC VALVE performed by Khalif Melgar MD at OR [facility] [place] Review of patient's allergies indicates: Allergen Reactions Lisinopril ED Morphine And Codeine "goofy and combative" Current Outpatient Medications Medication Sig Dispense Refill VMTurbo ULTRA SYSTEM W/DEVICE KIT Use up to four times a day as directed 1 Kit 0 ONETOUCH ULTRA TEST STRP Use up to four times a day as directed 100 Strip 11 BlacklaneTOUCH ULTRASOFT LANCETS MISC Use up to four times a day as directed 1 Box 11 aspirin 81 MG chewable tablet Take 2 Tabs by mouth daily. 60 Tab 3 Losartan Potassium 25 MG Oral Tablet (Cozaar) Take 1 Tablet by mouth in the morning. 90 Tablet 3 Sildenafil Citrate 20 MG Oral Tablet (Revatio) Take 2-3 tabs at least 1 hour prior to intercourse 30 Tablet 5 Metoprolol Succinate ER 100 MG Oral Tablet Extended Release 24 Hour (toPROL XL) TAKE 1/2 TABLET BY MOUTH TWICE DAILY - IN THE MORNING AND EVENING. 90 Tablet 1 Rosuvastatin Calcium 5 MG Oral Tablet (Crestor) TAKE 1 TABLET BY MOUTH EVERY MORNING 90 Tablet 1 Jantoven 5 MG Oral Tablet (Warfarin Sodium) Take 2 Tablets by mouth every evening. Or take as directed by the [facility] 64 Tablet 3 Glimepiride 2 MG Oral Tablet (Amaryl) TAKE 1 TABLET BY MOUTH ONCE DAILY WITH THE FIRST MAIN MEAL OFTHE DAY 90 Tablet 0 metFORMIN HCl 500 MG Oral Tablet (Glucophage) TAKE TWO TABLETS BY MOUTH TWICE PER DAY WITH MORNING AND EVENING MEALS. 360 Tablet 0 Vitamin B-12 1000 MCG Oral Tablet (Cyanocobalamin) TAKE 1 TABLET BY MOUTH ONCE DAILY 90 Tablet 3 No current facility-administered medications for this visit. Objective: BP 132/72 | Pulse 78 | Temp 36.5 °C (97.7 °F) (Tympanic) | Resp 16 | Ht 1.93 m (6' 4")| Wt 107.1 kg (236 lb 3.2 oz) | SpO2 96% | BMI 28.75 kg/m² | BSA 2.4 m² GEN: NAD HEENT: Benign NECK: Supple with no LAD, TM, JVD CHEST: CTA B CV: RRR ABD: Soft, NT/ND, No HSM, NABS EXT: No c,c,e Neuro exam: He does have a tremor noted of the left upper extremity. It is a low-amplitude high-frequency tremor. Neurologic exam otherwise is fine. Assessment and Plan: Type 2 diabetes mellitus with hemoglobin A1c goal of less than 8.0% ([facility]) (Primary) - HEMOGLOBIN A1C - BASIC METABOLIC PANEL -continue current medications. Patient aware of possible change to Jardiance. Will check [id number] with follow-up visit in 6 months. Dyslipidemia -continue rosuvastatin HTN, goal below 140/90 -continue losartan Muscle twitch Tremor -discussed possible referral to Neurology or trial of a medication to suppress the tremor. He declines at this time. It is noted that he is already on metoprolol. He will let me know if he has worsening symptoms or wishes further evaluation Need for tsmkhtpqva-lziambw-mmougftaf (Tdap) vaccine - TDAP (AGE 7 AND OLDER), ADACEL Follow Up: Return in about 6 months (around 03/03/2025) for recheck. | For: recheck 36 min with pt and documentation Og Broussard MD * Ladan Adler MED ASSIST - 09/03/2024 1:47 PM EST Immunization Administration Documentation Time Out Procedure Performed: Yes Patient Identified (Ask Name/Date of ): Yes Does the patient have a fever greater than 101 degrees today? No Patient allergic to latex? No VFC Stock: No Immunization(s) verified: Yes, Immunization Name: Tdap (Adacel), VIS Sheet(s) given: Yes Verified Side and Site: Yes Verified Shot(s) with Parent(s)/Patient: Yes documented in this encounter Nursing Notes * Ladan Adler MED ASSIST - 09/03/2024 1:45 PM EST The patient has been properly identified by confirmation of name and date of . Chief Complaint Patient presents with Physical-Exam Yearly physical. Pt states R leg will "twitch" when laying down but is okay standing and sitting. documented in this encounter Plan of Treatment Upcoming Encounters Date Type Department Care Team (Late st Contact Info) Description 09/19/2024 6:45 PM EST Anticoagulation [facility] Clinical Pharmacy Services, Daup[place]luna Ortiz [address] [place] [address] [place] [address] [place] [address] Scheduled Orders Name Type Priority Associated Diagnoses Orde r Schedule HEMOGLOBIN A1C Lab Routine Type 2 diabetes mellitus with hemoglobin A1c goal of less than 8.0% (HCC) Ordered: 09/03/2024 BASIC METABOLIC PANEL Lab Routine Type 2 diabetes mellitus with hemoglobin A1c goal of less than 8.0% (HCC) Ordered: 09/03/2024 Health Maintenance Due Date Last Done Comments Pneumococcal Vaccine: Pediatrics (0 to 5 Years) and At-Risk Patients (6 to 64 Years) (1 of 2 - PCV) 01/27/1972 HIV Screening 1981 Hepatitis C Screening 01/27/1984 Hepatitis B Vaccine (1 of 3 - 19+ 3-dose series) 1985 Cologuard 2011 Colonoscopy 2011 Colorectal Cancer [...] this encounter Medical Devices Implanted Type Area Central Office Supervisor Device Identifier Shelf Expiration Date Model / Serial / Lot Graft Valved Valsalva 27mm - [id number] - [id number] Implanted:Qty: 1 on 10/09/2015 by Khalif Melgar MD at OR [facility] [place] Aorta [address] JACINDA : CARDIOVASCULAR 01/21/2018 [id number] / [id number] / Sut Steel 6 M654g - [id number] Implanted:Qty: 4 on 10/09/2015 by Khalif Melgar MD at OR [facility] [place] Chest JNJ : [employer] 06/23/2020 [id number] / / [id number] documented as of this encounter Visit Diagnoses Diagnosis Type 2 diabetes mellitus with hemoglobin A1c goal of less than 8.0% (HCC)- Primary Dyslipidemia Other and unspecified hyperlipidemia HTN, goal below 140/90 Unspecified essential hypertension Muscle twitch Abnormal involuntary movements Tremor Abnormal involuntary movements Need for uleezwblpj-hwfwhzr-ydymeyiju (Tdap) vaccine Need for prophylactic vaccination with combined cccadeqhfe-avzhszg-avctrqhzh (DTP) vaccine documented in this encounter Advance Directives * [...] and were consensually agreed upon. Care Teams Bottoming Machine Operator Relationship Specialty Start Date End Date Og Broussard MD [address] [place] [address] PCP - General 02/14/08 documented as of this encounter
--- OUTSIDE RECORDS SUMMARY | 2025-01-26 06:40 | External Medical Summary | Summary of Care ---
Author Name Unknown Organization [facility] Address [address] [facility] [place] [address] Phone [phone] Care Team Providers Care Component Design Engineer Name Role Phone Og Broussard MD Primary Care Provider +1- [phone] Reason for Visit * Reason Comments Dosage Adjustment Via Phone (anticoag Cl inic) Encounter Details Date Type Department Care Team (Late st Contact Info) Description 11/30/2024 6:30 AM EST Anticoagulation Centralized Clinical Pharmacy Services, Tremaine Ortiz [address] [place] [address] [place] [address] [facility], [address] [place] [address] Status post mechanical aortic valve replacement* Allergies Active Allergy Reactions Criticality Noted Date Comments Lisinopril 01/07/2011 ED Morphine And Codeine 10/27/2015 "goofy and combative" documented as of this encounter (statuses as of 11/30/2024) Medications IncontTOUCH ULTRA SYSTEM W/DEVICE KITIndications:D M type 2, [...] as of this encounter (statuses as of 11/30/2024) Active Problems Problem Noted Date Diagnosed Date [...] as of this encounter (statuses as of 11/30/2024) Resolved Problems Problem Noted Date Diagnosed Date [...] as of this encounter (statuses as of 11/30/2024) Immunizations Name Administration Dates Next Due TDAP, [...] documented in this encounter Progress Notes * Katiana Marie, [facility] - 11/30/2024 9:52 AM EST Contacts Contact Date/Time Type Contact Phone/Fax 11/30/2024 09:50 AM EST Phone (Outgoing) Raul Huitron (Self) [phone] (M) Spoke to Patient Subjective Patient Findings Negatives: Signs/symptoms of bleeding, Change in health, Change in activity, Upcoming invasive procedure, Missed doses, Extra doses, Change in medications, Change in diet/appetite, Bruising Advised patient to contact Anticoagulation Clinic if any unusual bruising or bleeding, recent illness, changes in medication, or questions/concerns. PT/INR results, Coumadin dose instructions, and next PT/INR date communicated as noted by Pharmacist: Yes KATIANA MARIE CPhT 11/30/2024, 9:52 AM * Ladan Gregg RPh - 11/30/2024 9:21 AM EST Coumadin Clinic (region specific) Objective Current Warfarin Dose As of 11/30/2024 Warfarin maintenance plan: 15 mg (5 mg x 3) every Mon, Wed, Fri; 10 mg (5 mg x 2) all other days INR Result As of 11/30/2024 INR goal: 2.5-3.5 INR used for dosin.9 (11/21/2024) Assessment & Plan Warfarin Plan As of 11/30/2024 Full warfarin instructions: 15 mg every Mon, Wed, Fri; 10 mg all other days No change documented: Ladan Gregg RPh Next INR check: 12/12/2024 Repeat PT/INR in 3 week(s) Weekly dose: not changed Additional Dosing Information: Description [facility] to contact patient with dose instructions as noted. Ladan Gregg RPh 11/30/2024, 9:21 AM documented in this encounter Plan of Treatment Upcoming Encounters Date Type Department Care Team (Late st Contact Info) Description 12/13/2024 6:30 AM EST Anticoagulation Centralized Clinical Pharmacy Services, Tremaine Ortiz [address] [place] [address] [place] [address] [place] [address] Health Maintenance Due Date Last Done Comments [...] Additional history exists COVID-19 Vaccine ( - 2023- season) 2024 [...] this encounter Medical Devices Implanted Type Area Hand Sewer Device Identifier Shelf Expiration Date Model / Serial / Lot Graft Valved Valsalva 27mm - [id number] - [id number] Implanted:Qty: 1 on 10/09/2015 by Khalif Melgar MD at OR [facility] [place] Aorta [address] JACINDA : CARDIOVASCULAR 01/21/2018 [id number] / [id number] / Sut Steel 6 M654g - [id number] Implanted:Qty: 4 on 10/09/2015 by Khalif Melgar MD at OR [facility] [place] Chest JNJ : [employer] 06/23/2020 [id number] / / [id number] documented as of this encounter Procedures Procedure Name Priority Date/Time Associated Diagnosis Comments OUTSIDE LAB-PT/INR Routine 11/21/2024 documented in this encounter Results * OUTSIDE LAB-PT/INR (11/21/2024) INR-OUTSIDE LAB 2.9 11/21/2024 us History Per Patient LABORATORY Final Result [...] and were consensually agreed upon. Care Teams Component Design Engineer Relationship Specialty Start Date End Date Og Broussard MD PCP - General 02/14/08 documented as of this encounter
--- OUTSIDE RECORDS SUMMARY | 2025-01-26 06:40 | External Medical Summary | Summary of Care ---
Author Name Unknown Organization [facility] Address [address] [facility] [place] [address] Phone [phone] Care Team Providers Care Grease Machine Worker Name Role Phone Og Broussard MD Primary Care Provider +1- [phone] Reason for Visit * Reason Comments Dosage Adjustment Via Phone (anticoag Cl inic) Encounter Details Date Type Department Care Team (Late st Contact Info) Description 08/23/2024 6:45 PM EDT Anticoagulation [facility] Clinical [facility] Services, Randallluna Ortiz [address] [place] [address] [place] [address] [facility], [address] [place] [address] Status post mechanical aortic valve replacement* Allergies Active Allergy Reactions Criticality Noted Date Comments Lisinopril 01/07/2011 ED Morphine And Codeine 10/27/2015 "goofy and combative" documented as of this encounter (statuses as of 08/23/2024) Medications Medication Sig Dispensed Refills Start Date End Date Status SportsgritTOUCH ULTRA SYSTEM W/DEVICE KITIndications:DM type 2, goal A1c below 7 Use up to four times a day as directed 1 Kit 0 12/14/2010 Active ONETOUCH ULTRA TEST STRPIndications:DM type 2, goal A1c below 7 Use up to four times a day as directed 100 Strip 11 12/14/2010 Active ONETOUCH ULTRASOFT LANCETS MISCIndications:DM type 2, goal A1c below 7 Use up to four times a day as directed 1 Box 11 12/14/2010 Active aspirin 81 MG chewable tablet Take 2 Tabs by mouth daily. 60 Tab 3 11/06/2015 Active Ventolin HFA 108 (90 Base) MCG/ACT Inhalation Aerosol Solution Inhale 2 Puffs by mouth every 4 hours as needed for Shortness of Breath or Wheezing. 18 g 4 06/09/2021 Active Losartan Potassium 25 MG Oral Tablet (Cozaar)Indications :HTN, goal below 140/90,Microalbumin uria Take 1 Tablet by mouth in the morning. 90 Tablet 3 09/30/2023 Active Sildenafil Citrate 20 MG Oral Tablet (Revatio)Indication s:Erectile dysfunction, unspecified erectile dysfunction type Take 2-3 tabs at least 1 hour prior to intercourse 30 Tablet 5 12/24/2023 Active Metoprolol Succinate ER 100 MG Oral Tablet Extended Release 24 Hour (toPROL XL)Indications:Stat us post mechanical aortic valve replacement,Intermi ttent palpitations,SVT (supraventricular tachycardia) (HCC) TAKE 1/2 TABLET BY MOUTH TWICE DAILY - IN THE MORNING AND EVENING. 90 Tablet 1 03/08/2024 Active Rosuvastatin Calcium 5 MG Oral Tablet (Crestor)Indication s:Dyslipidemia TAKE 1 TABLET BY MOUTH EVERY MORNING 90 Tablet 1 04/30/2024 Active Jantoven 5 MG Oral Tablet (Warfarin Sodium)Indications: Status post mechanical aortic valve replacement Take 2 Tablets by mouth every evening. Or take as directed by the [facility] 64 Tablet 3 05/24/2024 Active Glimepiride 2 MG Oral Tablet (Amaryl)Indications :Type 2 diabetes mellitus with hemoglobin A1c goal of less than 8.0% (HCC) TAKE 1 TABLET BY MOUTH ONCE DAILY WITH THE FIRST MAIN MEAL OF THE DAY 90 Tablet 05/26/2024 Active metFORMIN HCl 500 MG Oral Tablet (Glucophage)Indicat ions:Type 2 diabetes mellitus with hemoglobin A1c goal of less than 8.0% (HCC) TAKE TWO TABLETS BY MOUTH TWICE PER DAY WITH MORNING AND EVENING MEALS. 360 Tablet 06/27/2024 Active Vitamin B-12 1000 MCG Oral Tablet (Cyanocobalamin) TAKE 1 TABLET BY MOUTH ONCE DAILY 90 Tablet 3 08/07/2024 Active documented as of this encounter (statuses as of 08/23/2024) Active Problems Problem Noted Date Diagnosed Date ILD (interstitial lung disease) 04/11/2021 Status post mechanical aortic valve replacement 10/10/2015 Thoracic ascending aortic aneurysm 09/17/2015 Overview: 5.2 x 5.3cm on Chest CTA 08/07 Type 2 diabetes mellitus wit h hemoglobin A1c goal of less than 8.0% 05/08/2015 Overview: ICD-10 update of inactive term Dyslipidemia 05/08/2015 HTN, goal below 140/90 12/24/2014 documented as of this encounter (statuses as of 08/23/2024) Resolved Problems Problem Noted Date Diagnosed Date [...] goal of less than 7.0% 01/07/2011 05/08/2015 Overview: ICD-10 update of inactive term HTN, goal below 140/90 12/04/201001/07 Family history of ischemic heart disease 02/19/2009 03/28/2019 Dyslipidemia, goal to be determined 02/19/2009 01/07/2011 documented as of this encounter (statuses as of 08/23/2024) Immunizations Name Administration Dates Next Due TDAP, Age 7 and older, IM (Adacel) 09/04/2012, documented as of this encounter Social History Tobacco Use Types Packs/Day Years Used Date Smoking Tobacco: Never Smokeless Tobacco: Current Snuff Alcohol Use Standard Drinks/Week Comments Yes 10 (1 standard drink = 0.6 oz pu re alcohol) occ/social PHQ-2 Answer Date Recorded PHQ Adult Total Score 0 07/21/2022 Sex and Gender Information Value Date Recorded Sex Assigned at Male 02/26/2019 1:40 PM EDT Gender Identity Male 02/26/2019 1:40 PM EDT Sexual Orientation Straight 02/26/2019 1: 40 PM EDT Job Start Date Occupation Industry Not on file Not on file Not on file documented as of this encounter Functional Status Functional Status Response Date of Assess ment Are you deaf or do you have serious difficulty h earing? No 06/25/2019 Are you blind or do you have serious difficulty seeing, even when wearing glasses? No 06/25/2019 Do you have serious difficul ty walking or climbing stairs? (5 years old or older) No 06/25/2019 Do you have difficulty dress ing or bathing? (5 years old or older) No 06/25/2019 Because of a physical, menta l, or emotional condition, do you have difficulty doing errands alone such as visiting a doctor s office or shopping? (15 years old or older) No 06/25/20 19 Cognitive Status Response Date of Assessm ent Because of a physical, menta l, or emotional condition, do you have serious difficulty concentrating, remembering, or making decisions? (5 years old or older) No 06/25/2019 documented as of this encounter Progress Notes * Marissa Skelton manager mechanical - 08/23/2024 8:28 AM EDT Patient Phone Numbers Left message on patient’s answering machine to schedule MTDM appointment for anticoag management. [facility] message sent --no Clinic will follow up again in 1 week(s). [Attempt # n/a] Marissa Skelton Fork Lift Truck Operator Centralized [facility] [address] [place] [address] Dr. Small [address] [place] [phone] 08/23/2024,8:29 AM documented in this encounter Plan of Treatment Upcoming Encounters Date Type Department Care Team (Late st Contact Info) Description 08/30/2024 6:45 PM EST Anticoagulation Centralized Clinical Pharmacy Services, Tremaine Ortiz [address] [place] [address] [place] [address] [facility], [facility] [address] [place] [address] 09/03/2024 1:40 PM EST Office Visit [facility] [address] [place] [address] Og Broussard MD [address] [place] [address] Health Maintenance Due Date Last Done Comments Pneumococcal Vaccine: Pediatrics (0 to 5 Years) and At-Risk Patients (6 to 64 Years) (1 of 2 - PCV) 01/27/1972 HIV Screening 1981 Hepatitis C Screening 01/27/1984 Hepatitis B Vaccine (1 of 3 - 19+ 3-dose series) 1985 Cologuard 2011 Colonoscopy 2011 Colorectal Cancer Screening 2011 Fecal Occult Blood Test 2011 Sigmoidoscopy 2011 Diabetic Eye Exam 01/08/2012 01/07/2011 Zoster Vaccines (1 of 2) 01/27/2016 Diabetic Foot Exam 08/25/2021 08/25/2020, 0 01/29/2019, 02/15/2012 DTap/Tdap Vaccines (3 - Td or Tdap) 09/04/2022 09/04/2012, 02/14/2008 HbA1c 10/29/2022 04/28/2022, 03/24, 11/18/2020, Additional history exists Albumin/Creatinine Ratio 04/28/2023 07 022, 11/18/2020, 01/24/2018, Additional history exists GFR 04/28/2023 04/28/2022, 03/24, 03/24/2021, Additional history exists Depression Screening 07/21/2023 07/21/2022 COVID-19 Vaccine ( season) 2024 Influenza Vaccine (FLU shot) (#1) 2024 Lipid Panel 06/01/2029 06/01/2024, 07/0 03/2022, 11/18/2020, Additional history exists HPV (Gardasil) Vaccine Aged Out No lo nger eligible based on patient's age to complete this topic MENINGOCOCCAL (MENACTRA/MENVEO) Aged Out No longer eligible based on patient's age to complete this topic documented as of this encounter Medical Devices Implanted Type Area Pound Attendant Device Identifier Shelf Expiration Date Model / Serial / Lot Graft Valved Valsalva 27mm - [id number] - [id number] Implanted:Qty: 1 on 10/09/2015 by Khalif Melgar [place] [facility] [place] [address] JACINDA : CARDIOVASCULAR 01/21/2018 [id number] / [id number] / Sut Steel 6 M654g - [id number] Implanted:Qty: 4 on 10/09/2015 by Khalif Melgar MD [place] [facility] [place] Chest JNJ : [employer] 06/23/2020 [id number] / / [id number] documented as of this encounter Visit Diagnoses Diagnosis Status post [...] and were consensually agreed upon. Care Teams Grease Machine Worker Relationship Specialty Start Date End Date Og Broussard MD [address] [facility] [place] [address] PCP - General 02/14/08 documented as of this encounter
--- OUTSIDE RECORDS SUMMARY | 2025-01-26 06:40 | External Medical Summary | Summary of Care ---
Author Name Unknown Organization [facility] Address [address] [facility] [place] [address] Phone [phone] Care Team Providers Care Animal Shelter Clerk Name Role Phone Ny England MD Primary Care Provider +1- [phone] Reason for Visit * Reason Comments eRx-Medication Refill Encounter Details Date Type Department Care Team (Late st Contact Info) Description 11/05/2024 Refill [facility] [address] [facility] [place] [address] Ny England MD [address] [place] [address] Dyslipidemia Allergies Active Allergy Reactions Criticality Noted Date Comments Lisinopril 01/07/2011 ED Morphine And Codeine 10/27/2015 "goofy and combative" documented as of this encounter (statuses as of 11/09/2024) Medications Genevolve Vision DiagnosticsTOUCH ULTRA SYSTEM W/DEVICE KITIndications: DM type 2, goal A1c below 7 Use up to four times a day as directed 1 Kit 0 12/14/19 11 Active ONETOUCH ULTRA TEST STRPIndications :DM type 2, goal A1c below 7 Use up to four times a day as directed 100 Strip 11 12/14/19 11 Active ONETOUCH ULTRASOFT LANCETS MISCIndications :DM type 2, goal A1c below 7 Use up to four times a day as directed 1 Box 11 12/14/19 11 Active aspirin 81 MG chewable tablet Take 2 Tabs by mouth daily. 60 Tab 3 11/06/19 16 Active Sildenafil Citrate 20 MG Oral Tablet (Revatio)Indica tions:Erectile dysfunction, unspecified erectile dysfunction type Take 2-3 tabs at least 1 hour prior to intercourse 30 Tablet 5 12/24/19 24 Active Vitamin B-12 1000 MCG Oral Tablet (Cyanocobalamin ) TAKE 1 TABLET BY MOUTH ONCE DAILY 90 Tablet 3 08/07/20 24 Active Metoprolol Succinate ER 100 MG Oral Tablet Extended Release 24 Hour (toPROL XL)Indications: Status post mechanical aortic valve replacement,Int ermittent palpitations,SV T (supraventricul ar tachycardia) (HCC) TAKE 1/2 TABLET BY MOUTH TWICE DAILY, IN THE MORNING AND EVENING. 90 Tablet 1 09/04/20 24 Active Glimepiride 2 MG Oral Tablet (Amaryl)Indicat ions:Type 2 diabetes mellitus with hemoglobin A1c goal of less than 8.0% (HCC) TAKE 1 TABLET BY MOUTH ONCE DAILY WITH THE FIRST MAIN MEAL OF THE DAY 90 Tablet 1 09/04/20 24 Active Warfarin Sodium 5 MG Oral Tablet (Jantoven)Indic ations:Status post mechanical aortic valve replacement Take 1 to 3 tablets by mouth daily as directed by Coumadin Clinic on phone. 270 Tablet 1 09/04/20 24 Active Losartan Potassium 25 MG Oral Tablet (Cozaar)Indicat ions:HTN, goal below 140/90,Microalb uminuria Take 1 Tablet by mouth in the morning. 90 Tablet 1 10/02/20 24 Active metFORMIN HCl 500 MG Oral Tablet (Glucophage)Ind ications:Type 2 diabetes mellitus with hemoglobin A1c goal of less than 8.0% (HCC) TAKE 2 TABLETS BY MOUTH TWICE DAILY with morning and evening meals 360 Tablet 1 10/02/20 24 Active Rosuvastatin Calcium 5 MG Oral Tablet (Crestor)Indica tions:Dyslipide adriana TAKE 1 TABLET BY MOUTH EVERY MORNING 90 Tablet 11/06/19 25 Active Rosuvastatin Calcium 5 MG Oral Tablet (Crestor)Indica tions:Dyslipide adriana TAKE 1 TABLET BY MOUTH EVERY MORNING 90 Tablet 1 04/30/20 24 025 Discontinued documented as of this encounter (statuses as of 11/09/2024) Active Problems Problem Noted Date Diagnosed Date [...] as of this encounter (statuses as of 11/09/2024) Resolved Problems Problem Noted Date Diagnosed Date [...] as of this encounter (statuses as of 11/09/2024) Immunizations Name Administration Dates Next Due TDAP, [...] encounter Miscellaneous Notes * Telephone Encounter - Coco Aleman - 11/09/2024 6:43 PM EST Received message from [facility] regarding patient needing labs. Patient was notified. Successfully contacted patient and provided [facility] message. * Telephone Encounter - Mer Zavala [facility] - 11/06/2024 3:53 PM ESTSigned Prescriptions: Disp Refills Rosuvastatin Calcium 5 MG Oral Tablet (Cre*90 Tab*0 Sig: TAKE 1 TABLET BY MOUTH EVERY MORNING Authorizing Provider: [place] Ordering User: MER ZAVALA * Telephone Encounter - Mer Zavala [facility] - 11/06/2024 3:52 PM EST Provided 90 days supply with 0 refill(s). Per refill protocol patient should have lipid panel on file within past year. Reviewed AMP report, Care Gaps/Health Maintenance, medications list, and for any routine labs typically ordered for this patient. Lab orders placed. Please contact patient to advise of labs ordered for blood draw. Recommend patient to fast if able for labs. Patient may still have water and regular medications. Advise to obtain labs before requesting the next refill. Thanks, Mer Zavala [facility] Clinical Pharmacist Centralized Clinical Pharmacy Services ([facility]) [phone] * Telephone Encounter - Barry Rubio [facility] - 11/06/2024 3:47 PM ESTPending Prescriptions: Disp Refills Rosuvastatin Calcium 5 MG Oral Tablet (Cre*90 Tab*0 Sig: TAKE 1 TABLET BY MOUTH EVERY MORNING documented in this encounter Plan of Treatment Upcoming Encounters Date Type Department Care Team (Late st Contact Info) Description 11/16/2024 6:30 AM EST Anticoagulation Centralized Clinical Pharmacy Services, Tremaine Ortiz [address] [place] [address] [place] [address] [facility], [address] [place] [address] Scheduled Orders Name Type Priority Associated Diagnoses Orde r Schedule LIPID PANEL WITH DIRECT LDL IF TG IS HIGH Lab Routine Dyslipidemia Expected: 11/13/2024 (Approximate), Expires: 11/06/2025 Health Maintenance Due Date Last Done Comments [...] 11/18/2020, Additional history exists Albumin/Creatinine Ratio 04/28/2023 072 022, 11/18/2020, 01/24/2018, Additional history exists GFR [...] this encounter Medical Devices Implanted Type Area Winder Fixer Device Identifier Shelf Expiration Date Model / Serial / Lot Graft Valved Valsalva 27mm - [id number] - [id number] Implanted:Qty: 1 on 10/09/2015 by Khalif Melgar [place] [facility] [place] : CARDIOVASCULAR 01/21/2018 [id number] / [id number] / Sut Steel 6 M654g - [id number] Implanted:Qty: 4 on 10/09/2015 by Khalif Melgar MD [place] [facility] [place] JNJ : [employer] 06/23/2020 [id number] / / [id number] documented as of this encounter Visit Diagnoses Diagnosis Dyslipidemia Other and unspecified hyperlipidemia documented in this encounter Advance Directives * [...] and were consensually agreed upon. Care Teams Animal Shelter Clerk Relationship Specialty Start Date End Date Ny England MD PCP - General 02/14/08 documented as of this encounter
--- OUTSIDE RECORDS SUMMARY | 2025-01-26 06:40 | External Medical Summary | Summary of Care ---
Author Name Unknown Organization [facility] Address [address] [facility] [place] [address] Phone [phone] Care Team Providers Care Survey Research Center Director Name Role Phone Og Broussard MD Primary Care Provider +1- [phone] Reason for Visit * Reason Comments Dosage Adjustment Via Phone (anticoag Cl inic) Encounter Details Date Type Department Care Team (Late st Contact Info) Description 09/04/2024 6:30 AM EST Anticoagulation Centralized Clinical Pharmacy Services, Tremaine Ortiz [address] [place] [address] [place] [address] [facility], [address] [place] [address] Status post mechanical aortic valve replacement* Allergies Active Allergy Reactions Criticality Noted Date Comments Lisinopril 01/07/2011 ED Morphine And Codeine 10/27/2015 "goofy and combative" documented as of this encounter (statuses as of 09/04/2024) Medications ONETOUCH ULTRA SYSTEM W/DEVICE KITIndications :DM type 2, goal A1c below 7 Use up to four times a day as directed 1 Kit 0 12/14/19 11 Active ONETOUCH ULTRA TEST STRPIndication s:DM type 2, goal A1c below 7 Use up to four times a day as directed 100 Strip 11 12/14/19 11 Active ONETOUCH ULTRASOFT LANCETS MISCIndication s:DM type 2, goal A1c below 7 Use up to four times a day as directed 1 Box 11 12/14/19 11 Active aspirin 81 MG chewable tablet Take 2 Tabs by mouth daily. 60 Tab 3 11/06/19 16 Active Losartan Potassium 25 MG Oral Tablet (Cozaar)Indica tions:HTN, goal below 140/90,Microal buminuria Take 1 Tablet by mouth in the morning. 90 Tablet 3 09/30/20 23 Active Sildenafil Citrate 20 MG Oral Tablet (Revatio)Indic ations:Erectil e dysfunction, unspecified erectile dysfunction type Take 2-3 tabs at least 1 hour prior to intercourse 30 Tablet 5 12/24/19 24 Active Rosuvastatin Calcium 5 MG Oral Tablet (Crestor)Indic ations:Dyslipi demia TAKE 1 TABLET BY MOUTH EVERY MORNING 90 Tablet 1 04/30/20 24 Active metFORMIN HCl 500 MG Oral Tablet (Glucophage)In dications:Type 2 diabetes mellitus with hemoglobin A1c goal of less than 8.0% (HCC) TAKE TWO TABLETS BY MOUTH TWICE PER DAY WITH MORNING AND EVENING MEALS. 360 Tablet 06/27/20 24 Active Vitamin B-12 1000 MCG Oral Tablet (Cyanocobalami n) TAKE 1 TABLET BY MOUTH ONCE DAILY 90 Tablet 3 08/07/20 24 Active Metoprolol Succinate ER 100 MG Oral Tablet Extended Release 24 Hour (toPROL XL)Indications :Status post mechanical aortic valve replacement,In termittent palpitations,S VT (supraventricu lar tachycardia) ([facility]) TAKE 1/2 TABLET BY MOUTH TWICE DAILY, IN THE MORNING AND EVENING. 90 Tablet 1 09/04/20 24 Active Glimepiride 2 MG Oral Tablet (Amaryl)Indica tions:Type 2 diabetes mellitus with hemoglobin A1c goal of less than 8.0% (HCC) TAKE 1 TABLET BY MOUTH ONCE DAILY WITH THE FIRST MAIN MEAL OF THE DAY 90 Tablet 1 09/04/20 24 Active Warfarin Sodium 5 MG Oral Tablet (Jantoven)Swetha cations:Status post mechanical aortic valve replacement Take 1 to 3 tablets by mouth daily as directed by Coumadin Clinic on phone. 270 Tablet 1 09/04/20 24 Active Jantoven 5 MG Oral Tablet (Warfarin Sodium)Indicat ions:Status post mechanical aortic valve replacement Take 2 Tablets by mouth every evening. Or take as directed by the [facility] 64 Tablet 3 05/24/20 24 024 Discontinued(R efill) Warfarin Sodium 5 MG Oral Tablet (Jantoven)Swetha cations:Status post mechanical aortic valve replacement Take 1 to 3 tablets by mouth daily as directed by Coumadin Clinic on phone. 270 Tablet 1 09/04/20 24 024 Discontinued documented as of this encounter (statuses as of 09/04/2024) Active Problems Problem Noted Date Diagnosed Date [...] as of this encounter (statuses as of 09/04/2024) Resolved Problems Problem Noted Date Diagnosed Date [...] as of this encounter (statuses as of 09/04/2024) Immunizations Name Administration Dates Next Due TDAP, [...] documented in this encounter Progress Notes * Ladan Gregg RPh - 09/04/2024 3:33 PM EST Refill sent Ladan Gregg Rph, Pharm.D. Clinical Pharmacist Centralized Clinical [facility] Services ([facility]) [phone] 09/04/2024,3:33 PM * Katiana Marie CPhT - 09/04/2024 10:55 AM EST Contacts Contact Date/Time Type Contact Phone/Fax 09/04/2024 10:50 AM EST Phone (Outgoing) Raul Huitron (Self) [phone] (M) Spoke to Patient Subjective Patient Findings Positives: Other complaints (Patient is asking for an updated script for warfarin to be called in to pharmacy. He gets less than a 1 month supply at a time with the directions on the bottle currently) Negatives: Signs/symptoms of bleeding, Change in health, Change in activity, Upcoming invasive procedure, Missed doses, Extra doses, Change in medications, Change in diet/appetite, Bruising Advised patient to contact Anticoagulation Clinic if any unusual bruising or bleeding, recent illness, changes in medication, or questions/concerns. PT/INR results, Coumadin dose instructions, and next PT/INR date communicated as noted by Pharmacist: Yes KATIANA MARIE CPhT 09/04/2024, 10:55 AM * Ladan Gregg RPh - 09/04/2024 10:43 AM EST Coumadin Clinic (region specific) Objective Current Warfarin Dose As of 09/04/2024 Warfarin maintenance plan: 15 mg (5 mg x 3) every Mon, Wed, Fri; 10 mg (5 mg x 2) all other days INR Result As of 09/04/2024 INR goal: 2.5-3.5 INR used for dosin.1 (09/03/2024) Assessment & Plan Warfarin Plan As of 09/04/2024 Full warfarin instructions: 15 mg every Mon, Wed, Fri; 10 mg all other days No change documented: Ladan Gregg RPh Next INR check: 09/17/2024 Repeat PT/INR in 2 week(s) Weekly dose: not changed Additional Dosing Information: Description [facility] to contact patient with dose instructions as noted. Ladan Gregg RPh 09/04/2024, 10:43 AM documented in this encounter Plan of Treatment Upcoming Encounters Date Type Department Care Team (Late st Contact Info) Description 09/18/2024 6:30 AM EST Anticoagulation Centralized Clinical Pharmacy Services, Tremaine Ortiz [address] [place] [address] [place] [address] [place] [address] Health Maintenance Due Date Last Done Comments [...] this encounter Medical Devices Implanted Type Area Survey Technician Device Identifier Shelf Expiration Date Model / Serial / Lot Graft Valved Valsalva 27mm - [id number] - [id number] Implanted:Qty: 1 on 10/09/2015 by Khalif Melgar MD [place] [facility] [place] [employer]INDA : CARDIOVASCULAR 01/21/2018 [id number] / [id number] / Sut Steel 6 M654g - [id number] Implanted:Qty: 4 on 10/09/2015 by Khalif Melgar [place] [facility] [place] Chest JNJ : [employer] 06/23/2020 [id number] / / [id number] documented as of this encounter Procedures Procedure Name Priority Date/Time Associated Diagnosis Comments OUTSIDE LAB-PT/INR Routine 09/03/2024 documented in this encounter Results * OUTSIDE LAB-PT/INR (09/03/2024) INR-OUTSIDE LAB 3.1 OUTS [facility] (SEE SCANNED REPORT) us History Per Patient LABORATORY Final Result OUTSIDE LAB (SEE SCANNED REPORT) documented in this encounter Visit Diagnoses Diagnosis [...] and were consensually agreed upon. Care Teams Survey Research Center Director Relationship Specialty Start Date End Date Og Broussard MD [address] [place] [address] PCP - General 02/14/08 documented as of this encounter
--- OUTSIDE RECORDS SUMMARY | 2025-01-26 06:40 | External Medical Summary | Summary of Care ---
Author Name Unknown Organization [facility] Address [address] [facility] [place] [address] Phone [phone] Care Team Providers Care Sec Reporting Consultant Name Role Phone Og Broussard MD Primary Care Provider +1- [phone] Reason for Visit * Reason Comments Dosage Adjustment Via Phone (anticoag Cl inic) Encounter Details Date Type Department Care Team (Late st Contact Info) Description 08/30/2024 6:45 PM EST Anticoagulation Centralized Clinical Pharmacy Services, Tremaine Ortiz [address] [place] [address] [place] Arri[place] [address] [facility], [address] [place] [address] Anticoagulation management encounter* Allergies Active Allergy Reactions Criticality Noted Date Comments Lisinopril 01/07/2011 ED Morphine And Codeine 10/27/2015 "goofy and combative" documented as of this encounter (statuses as of 08/30/2024) Medications Medication Sig Dispensed Refills Start Date End Date Status Trusted OpinionTOUCH ULTRA SYSTEM W/DEVICE KITIndications:DM type 2, goal [...] evening. Or take as directed by the [facility] 64 Tablet 3 05/24/2024 Active [...] as of this encounter (statuses as of 08/30/2024) Active Problems Problem Noted Date Diagnosed Date [...] as of this encounter (statuses as of 08/30/2024) Resolved Problems Problem Noted Date Diagnosed Date [...] as of this encounter (statuses as of 08/30/2024) Immunizations Name Administration Dates Next Due TDAP, [...] as of this encounter Progress Notes * Katiana Marie CPhT - 08/30/2024 8:12 AM EST Patient Phone Numbers LV reminding patient he is overdue for PT/INR blood work. Will follow up again in 2-3 weeks if labs are not drawn sooner. Thank you, Katiana Marie CPhT Red Leader II [facility] Clinical Pharmacy Services ([facility]) 08/30/2024,8:12 AM documented in this encounter Plan of Treatment Upcoming Encounters Date Type Department Care Team (Late st Contact Info) Description 09/03/2024 1:40 PM EST Office Visit [address] [address] Og Broussard MD [address] [place] [address] 09/19/2024 6:45 PM EST Anticoagulation Centralized Clinical Pharmacy Services, [facility] [address] [place] [address] [place] Arriaga [address] [facility], [facility] [address] [place] [address] Health Maintenance Due Date Last Done Comments [...] Depression Screening 07/21/2023 07/21/2022 COVID-19 Vaccine ( - season) 2024 Influenza [...] this encounter Medical Devices Implanted Type Area Cash Van Salesperson Device Identifier Shelf Expiration Date Model / Serial / Lot Graft Valved Valsalva 27mm - [id number] - [id number] Implanted:Qty: 1 on 10/09/2015 by Khalif Melgar MD at OR [facility] Aorta ST JACINDA : CARDIOVASCULAR 01/21/2018 [id number]-[id number] / [id number] / Sut Steel 6 M654g - [id number] Implanted:Qty: 4 on 10/09/2015 by Khalif Melgar MD at OR [facility] Chest JNJ : [employer] 06/23/2020 M654G / / [id number] documented as of this encounter Visit Diagnoses Diagnosis Anticoagulation management encounter- Primary Encounter for therapeutic drug monitoring documented in this encounter Advance Directives * [...] and were consensually agreed upon. Care Teams Sec Reporting Consultant Relationship Specialty Start Date End Date Og Broussard MD [address] [place] [address] PCP - General 02/14/08 documented as of this encounter
--- OUTSIDE RECORDS SUMMARY | 2025-01-26 06:40 | External Medical Summary | Summary of Care ---
Author Name Unknown Organization [facility] Address [address] [facility] [place] [address] Phone [phone] Care Team Providers Care Hr Internship Name Role Phone Og Broussard MD Primary Care Provider +1- [phone] Reason for Visit * Reason Comments Dosage Adjustment Via Phone (anticoag Cl inic) Encounter Details Date Type Department Care Team (Late st Contact Info) Description 10/12/2024 6:15 PM EST Anticoagulation Centralized Clinical Pharmacy Services, Tremaine Ortiz [address] [place] [address] [place] Arri[place] [address] [facility], [address] [place] [address] Status post mechanical aortic valve replacement* Allergies Active Allergy Reactions Criticality Noted Date Comments Lisinopril 01/07/2011 ED Morphine And Codeine 10/27/2015 "goofy and combative" documented as of this encounter (statuses as of 10/12/2024) Medications WhisbiTOUCH ULTRA SYSTEM W/DEVICE KITIndications:D M type 2, [...] to intercourse 30 Tablet 5 4 Active Rosuvastatin Calcium 5 MG Oral Tablet (Crestor)Indicat ions:Dyslipidemi a TAKE 1 TABLET BY MOUTH EVERY MORNING 90 Tablet 1 4 Active Vitamin B-12 1000 MCG Oral [...] evening meals 360 Tablet 1 4 Active documented as of this encounter (statuses as of 10/12/2024) Active Problems Problem Noted Date Diagnosed Date [...] as of this encounter (statuses as of 10/12/2024) Resolved Problems Problem Noted Date Diagnosed Date [...] as of this encounter (statuses as of 10/12/2024) Immunizations Name Administration Dates Next Due TDAP, [...] documented in this encounter Progress Notes * Martha Brown CPhT - 10/12/2024 12:40 PM EST Contacts Contact Date/Time Type Contact Phone/Fax 10/12/2024 12:38 PM EST Phone (Outgoing) Raul Huitron (Self) [phone] (M) Left Message Subjective Advised patient to contact Anticoagulation Clinic if any unusual bruising or bleeding, recent illness, changes in medication, or questions/concerns. PT/INR results, Coumadin dose instructions, and next PT/INR date communicated as noted by Pharmacist: Yes MARTHA BROWN CPhT 10/12/2024, 12:40 PM * Ladan Gregg RP - 10/12/2024 12:18 PM EST Images from the original note were not included. Coumadin Clinic (region specific) Objective Current Warfarin Dose As of 10/12/2024 Warfarin maintenance plan: 15 mg (5 mg x 3) every Mon, Wed, Fri; 10 mg (5 mg x 2) all other days INR Result As of 10/12/2024 INR goal: 2.5-3.5 INR used for dosin.8 (10/11/2024) Assessment & Plan Warfarin Plan As of 10/12/2024 Full warfarin instructions: 10/12: Hold; 10/13: 5 mg; Otherwise 15 mg every Mon, Wed, Fri; 10 mg all other days Next INR check: 10/25/2024 Repeat PT/INR in 2 week(s) Weekly dose: not changed Additional Dosing Information: Description [facility] to contact patient with dose instructions as noted. Ladan Gregg RPh 10/12/2024, 12:18 PM documented in this encounter Plan of Treatment Upcoming Encounters Date Type Department Care Team (Late st Contact Info) Description 10/26/2024 6:30 AM EST Anticoagulation Centralized Clinical Pharmacy Services, Tremaine Ortiz [address] [place] [address] [place] Ar[place] [address] [facility], [address] [place] [address] Health Maintenance Due Date Last Done Comments HIV Screening 1981 Hepatitis C Screening 01/27/1984 Hepatitis B Vaccine (1 of 3 - 19+ 3-dose series) 1985 Pneumococcal Vaccine: Pediatrics (0 to 5 Years) and At-Risk Patients (6 to 64 Years) (1 of 2 - PCV) 1985 Cologuard [...] this encounter Medical Devices Implanted Type Area Soft Work Wrapper Examiner Device Identifier Shelf Expiration Date Model / Serial / Lot Graft Valved Valsalva 27mm - [id number] - [id number] Implanted:Qty: 1 on 10/09/2015 by Khalif Melgar MD at OR [facility] Aorta [address] JACINDA : CARDIOVASCULAR 01/21/2018 [id number]-515 / [id number] / Sut Steel 6 M654g - [id number] Implanted:Qty: 4 on 10/09/2015 by Khalif Melgar MD at OR [facility] Chest JNJ : [employer] 06/23/2020 M654G / / [id number] documented as of this encounter Procedures Procedure Name Priority Date/Time Associated Diagnosis Comments OUTSIDE LAB-PT/INR Routine 10/11/2024 documented in this encounter Results * OUTSIDE LAB-PT/INR (10/11/2024) INR-OUTSIDE LAB 4.8 OUTS [facility] (SEE SCANNED REPORT) us [...] and were consensually agreed upon. Care Teams Hr Internship Relationship Specialty Start Date End Date Og Broussard MD PCP - General 02/14/08 documented as of this encounter
--- OUTSIDE RECORDS SUMMARY | 2025-01-26 06:40 | External Medical Summary | Summary of Care ---
Author Name Unknown Organization [facility] Address [address] [facility] [place] [address] Phone [phone] Care Team Providers Care Floatman Name Role Phone Og Broussard MD Primary Care Provider +1- [phone] Encounter Details Date Type Department Care Team (Late st Contact Info) Description 10/11/2024 Result Scan Unspecified Department Ladan Gregg, [facility] [address] [place] [address] <No scans attached> Allergies Active Allergy Reactions Criticality Noted Date Comments Lisinopril 01/07/2011 ED Morphine And Codeine 10/27/2015 "goofy and combative" documented as of this encounter (statuses as of 10/12/2024) Medications SentillionTOUCH ULTRA SYSTEM W/DEVICE KITIndications:D M type 2, [...] (09/17/2015): 5.2 x 5.3cm on Chest CTA 10/15 Type 2 diabetes mellitus wit h hemoglobin [...] Anticoagulation Centralized Clinical Pharmacy Services, Tremaine Ortiz [address] [place] [address] [place] Ar[place]aga [address] [place] [address] Health Maintenance Due Date Last Done Comments [...] this encounter Medical Devices Implanted Type Area Cutter Operator Asbestos Shingle Device Identifier Shelf Expiration Date Model / Serial / Lot Graft Valved Valsalva 27mm - [id number] - [id number] Implanted:Qty: 1 on 10/09/2015 by Khalif Melgar MD [place] [facility] [place] JACINDA : CARDIOVASCULAR 01/21/2018 [id number]-[id number] / [id number] / Sut Steel 6 M654g - [id number] Implanted:Qty: 4 on 10/09/2015 by Khalif Melgar MD [place] OR [facility] Chest JNJ : [employer] 06/23/2020 M654G / / [id number] documented as of this encounter Procedures Procedure Name Priority Date/Time Associated Diagnosis Comments OUTSIDE LAB RESULTS 10/11/2024 documented in this encounter Results * OUTSIDE LAB RESULTS (10/11/2024) 10/11/2024 Ladan Gregg [facility] LABORATORY Final Result documented in this encounter [...] and were consensually agreed upon. Care Teams Floatman Relationship Specialty Start Date End Date Og Broussard MD PCP - General 02/14/08 documented as of this encounter
--- OUTSIDE RECORDS SUMMARY | 2025-01-26 06:40 | External Medical Summary | Summary of Care ---
Author Name Unknown Organization [facility] Address [address] [facility] [address] Phone [phone] Care Team Providers Care Director Financial Planning Name Role Phone Ny England MD Primary Care Provider +1- [phone] Reason for Visit * Reason Comments eRx-Medication Refill Encounter Details Date Type Department Care Team (Late st Contact Info) Description 10/01/[address] [address] Ny England MD [address] [place] [address] HTN, goal below 140/90; Microalbuminuria; Type 2 diabetes mellitus with hemoglobin A1c goal of less than 8.0% ([facility]) Allergies Active Allergy Reactions Criticality Noted Date Comments Lisinopril 01/07/2011 ED Morphine And Codeine 10/27/2015 "goofy and combative" documented as of this encounter (statuses as of 10/02/2024) Medications C3Nano SYSTEM W/DEVICE KITIndications: DM type 2, goal A1c below 7 Use up to four times a day as directed 1 Kit 0 12/14/19 11 Active ONEClouliUCH ULTRA TEST STRPIndications :DM type 2, goal [...] MORNING 90 Tablet 1 04/30/20 24 Active Vitamin B-12 1000 MCG Oral [...] meals 360 Tablet 1 10/02/20 24 Active Losartan Potassium 25 MG Oral Tablet (Cozaar)Indicat ions:HTN, goal below 140/90,Microalb uminuria Take 1 Tablet by mouth in the morning. 90 Tablet 3 09/30/20 23 024 Discontinued metFORMIN HCl 500 MG Oral Tablet (Glucophage)Ind ications:Type 2 diabetes mellitus with hemoglobin A1c goal of less than 8.0% ([facility]) TAKE TWO TABLETS BY MOUTH TWICE PER DAY WITH MORNING AND EVENING MEALS. 360 Tablet 06/27/20 24 024 Discontinued documented as of this encounter (statuses as of 10/02/2024) Active Problems Problem Noted Date Diagnosed Date [...] as of this encounter (statuses as of 10/02/2024) Resolved Problems Problem Noted Date Diagnosed Date [...] as of this encounter (statuses as of 10/02/2024) Immunizations Name Administration Dates Next Due TDAP, [...] encounter Miscellaneous Notes * Telephone Encounter - Mer Zavala [facility] - 10/02/2024 10:36 AM EST Signed Prescriptions: Disp Refills Losartan Potassium 25 MG Oral Tablet (Coza*90 Tab*1 Sig: Take 1 Tablet by mouth in the morning.Authorizing Provider: [place] User: MER ZAVALA metFORMIN HCl 500 MG Oral Tablet (Glucopha*360 Ta*1 Sig: TAKE 2 TABLETS BY MOUTH TWICE DAILY with morning and evening mealsAuthorizing Provider: [place] User: MER ZAVALA * Telephone Encounter - Mer Zavala RPh - 10/02/2024 10:35 AM EST Provided 90 days supply with 1 refill. Per refill protocol patient should have BMP and A1C on file within past year. Lab work was already ordered. Added reminder note to pharmacy. Thanks, Mer Zavala [facility] Clinical Pharmacist Centralized Clinical Pharmacy Services ([facility]) [phone] documented in this encounter Plan of Treatment Upcoming Encounters Date Type Department Care Team (Late st Contact Info) Description 10/09/2024 6:30 AM EST Anticoagulation Centralized Clinical Pharmacy Services, Tremaine Ortiz [address] [place] [address] Dr. Tremaine Ortiz, [place] [address] [facility], [address] [place] [address] Health Maintenance Due Date Last Done Comments [...] this encounter Medical Devices Implanted Type Area Shroudman Device Identifier Shelf Expiration Date Model / Serial / Lot Graft Valved Valsalva 27mm - [id number] - [id number] Implanted:Qty: 1 on 10/09/2015 by Khalif Melgar [place] [facility] Aorta [address] JACINDA : CARDIOVASCULAR 01/21/2018 [id number]-[id number] / [id number] / Sut Steel 6 M654g - [id number] Implanted:Qty: 4 on 10/09/2015 by Khalif Melgar MD [place] [facility] Chest JNJ : [employer] 06/23/2020 M654G / / [id number] documented as of this encounter Visit Diagnoses Diagnosis HTN, goal below 140/90 Unspecified essential hypertension Microalbuminuria Proteinuria Type 2 diabetes mellitus with hemoglobin A1c goal of less than 8.0% ([facility]) documented in this encounter Advance Directives * [...] and were consensually agreed upon. Care Teams Director Financial Planning Relationship Specialty Start Date End Date Ny England MD [address] [place] [address] PCP - General 02/14/08 documented as of this encounter
--- OUTSIDE RECORDS SUMMARY | 2025-01-26 06:40 | External Medical Summary | Summary of Care ---
Author Name Unknown Organization [facility] Address [address] [facility] [place] [address] Phone [phone] Care Team Providers Care Stitchdowns Toe Former Name Role Phone Ny England MD Primary Care Provider +1- [phone] Reason for Visit * Reason Comments eRx-Medication Refill Encounter Details Date Type Department Care Team (Late st Contact Info) Description 08/07/2024 Refill [facility] [address] [place] [address] Ny England MD [address] [place] [address] Allergies Active Allergy Reactions Criticality Noted Date Comments Lisinopril 01/07/2011 ED Morphine And Codeine 10/27/2015 "goofy and combative" documented as of this encounter (statuses as of 08/07/2024) Medications Medication Sig Dispensed Refills Start Date End Date Status Youchange HoldingsTOUCH ULTRA SYSTEM W/DEVICE KITIndications:D M type 2, goal A1c below 7 Use up to four times a day as directed 1 Kit 0 12/14/2010 Active ONETOUCH ULTRA TEST STRPIndications: DM type 2, goal A1c below 7 Use up to four times a day as directed 100 Strip 11 12/14/2010 Active ONETOUCH ULTRASOFT LANCETS MISCIndications: DM type [...] Active Jantoven 5 MG Oral Tablet (Warfarin Sodium)Indicatio ns:Status post mechanical aortic valve replacement Take 2 Tablets by mouth every evening. Or take as directed by the [facility]in [facility] 64 Tablet 3 05/24/2024 Active Glimepiride 2 MG Oral Tablet (Amaryl)Indicati [...] ONCE DAILY 90 Tablet 3 08/07/2024 Active Vitamin B-12 1000 MCG Oral Tablet (Cyanocobalamin) TAKE 1 TABLET BY MOUTH ONCE DAILY 90 Tablet 3 07/05/2023 4 Discontinued documented as of this encounter (statuses as of 08/07/2024) Active Problems Problem Noted Date Diagnosed Date [...] as of this encounter (statuses as of 08/07/2024) Resolved Problems Problem Noted Date Diagnosed Date [...] as of this encounter (statuses as of 08/07/2024) Immunizations Name Administration Dates Next Due TDAP, [...] No 06/25/2019 documented as of this encounter Miscellaneous Notes * Telephone Encounter - Ny England MD - 08/07/2024 4:49 PM EDTSigned Prescriptions: Disp Refills Vitamin B-12 1000 MCG Oral Tablet (Cyanoco*90 Tab*3 Sig: TAKE 1TABLET BY MOUTH ONCE DAILYAuthorizing Provider: [place] * Telephone Encounter - Laya Baires LPN - 08/07/2024 3:39 PM EDTPending Prescriptions: Disp Refills Vitamin B-12 1000 MCG Oral Tablet [Pharmac*90 Tab*0 Sig: TAKE 1 TABLET BY MOUTH ONCE DAILY * Telephone Encounter - Eligio Aleman - 08/07/2024 1:34 PM EDTPending Prescriptions: Disp Refills Vitamin B-12 1000 MCG Oral Tablet [Pharmac*90 Tab*0 Sig: TAKE 1TABLET BY MOUTH ONCE DAILY documented in this encounter Plan of Treatment Upcoming Encounters Date Type Department Care Team (Late st Contact Info) Description 08/13/2024 6:30 AM EDT Anticoagulation [facility] Clinical Pharmacy Services, Tremaine Ortiz [address] [place] [address] [place] [address] [place] [address] 09/03/2024 1:40 PM EST Office Visit [facility] [address] [place] [id number] Ny England MD [address] [place] [address] Health Maintenance Due Date Last [...] this encounter Medical Devices Implanted Type Area Cosmetician Device Identifier Shelf Expiration Date Model / Serial / Lot Graft Valved Valsalva 27mm - [id number] - [id number] Implanted:Qty: 1 on 10/09/2015 by Khalif Melgar [place] [facility] [place] [address] JACINDA : CARDIOVASCULAR 01/21/2018 [id number]-515 / [id number] / Sut Steel 6 M654g - [id number] Implanted:Qty: 4 on 10/09/2015 by Khalif Melgar MD [place] [facility] Chest JNJ : [employer] 06/23/2020 M654G / / [id number] documented as of this encounter Advance Directives [...] and were consensually agreed upon. Care Teams Stitchdowns Toe Former Relationship Specialty Start Date End Date Ny England MD [address] [place] [address] PCP - General 02/14/08 documented as of this encounter
--- OUTSIDE RECORDS SUMMARY | 2025-01-26 06:40 | External Medical Summary | Summary of Care ---
Author Name Unknown Organization [facility] Address [address] [facility] [place] [address] Phone [phone] Care Team Providers Care Graduate Assistant Name Role Phone Og Broussard MD Primary Care Provider +1- [phone] Encounter Details Date Type Department Care Team (Late st Contact Info) Description 09/03/2024 Result Scan Unspecified Department Ladan Gregg, [facility] [address] [place] [address] <No scans attached> Allergies Active Allergy Reactions Criticality Noted Date Comments Lisinopril 01/07/2011 ED Morphine And Codeine 10/27/2015 "goofy and combative" documented as of this encounter (statuses as of 09/04/2024) Medications OptosecurityTOUCH ULTRA SYSTEM W/DEVICE KITIndications:D M type 2, [...] evening. Or take as directed by the [facility] 64 Tablet 3 4 Active [...] ONCE DAILY 90 Tablet 3 4 Active documented as of this encounter [...] this encounter Medical Devices Implanted Type Area Molecular Genetic Pathologist Device Identifier Shelf Expiration Date Model / Serial / Lot Graft Valved Valsalva 27mm - [id number] - [id number] Implanted:Qty: 1 on 10/09/2015 by Khalif Melgar MD [place] [facility] [place] JACINDA : CARDIOVASCULAR 01/21/2018 [id number]-[id number] / [id number] / Sut Steel 6 M654g - [id number] Implanted:Qty: 4 on 10/09/2015 by Khalif Melgar MD [place] [facility] [place] Chest JNJ : [employer] 06/23/2020 M654G / / [id number] documented as of this encounter Procedures Procedure Name Priority Date/Time Associated Diagnosis Comments OUTSIDE LAB RESULTS 09/03/2024 documented in this encounter Results * OUTSIDE LAB RESULTS (09/03/2024) 09/03/2024 Ladan Gregg [facility] LABORATORY Final Result documented in this encounter [...] 10/09/2015 3:16 PM 10/13/2015 6:38 PM This orde r reflects the patients wishes and were consensually agreed upon. Care Teams Graduate Assistant Relationship Specialty Start Date End Date Og Broussard MD [address] [place] [address] PCP - General 02/14/08 documented as of this encounter
--- OUTSIDE RECORDS SUMMARY | 2025-01-26 06:40 | External Medical Summary | Summary of Care ---
Author Name Unknown Organization [facility] Address [address] [facility] [place] [address] Phone [phone] Care Team Providers Care Band Saw Filer Name Role Phone Og Broussard MD Primary Care Provider +1- [phone] Encounter Details Date Type Department Care Team (Late st Contact Info) Description 11/23/2024 Result Scan Unspecified Department Ladan Gregg, [facility] [address] [place] [address] <No scans attached> Allergies Active Allergy Reactions Criticality Noted Date Comments Lisinopril 01/07/2011 ED Morphine And Codeine 10/27/2015 "goofy and combative" documented as of this encounter (statuses as of 12/13/2024) Medications KissMyAdsTOUCH ULTRA SYSTEM W/DEVICE KITIndications:D M type 2, [...] as of this encounter (statuses as of 12/13/2024) Active Problems Problem Noted Date Diagnosed Date [...] as of this encounter (statuses as of 12/13/2024) Resolved Problems Problem Noted Date Diagnosed Date [...] as of this encounter (statuses as of 12/13/2024) Immunizations Name Administration Dates Next Due TDAP, [...] Care Team (Late st Contact Info) Description 12/20/2024 6:30 AM EST Anticoagulation Centralized Clinical Pharmacy Services, Tremaine Ortiz [address] [place] [address] [place] [address] [place] [address] Health Maintenance Due Date Last Done Comments [...] this encounter Medical Devices Implanted Type Area Meat Loiner Device Identifier Shelf Expiration Date Model / Serial / Lot Graft Valved Valsalva 27mm - [id number] - [id number] Implanted:Qty: 1 on 10/09/2015 by Khalif Melgar MD at [place] [facility] Aorta ST JACINDA : CARDIOVASCULAR 01/21/2018 [id number]-[id number] / [id number] / Sut Steel 6 M654g - [id number] Implanted:Qty: 4 on 10/09/2015 by Khalif Melgar MD at OR [facility] Chest JNJ : [employer] 06/23/2020 M654G / / [id number] documented as of this encounter Procedures Procedure Name Priority Date/Time Associated Diagnosis Comments OUTSIDE LAB RESULTS 11/23/2024 documented in this encounter Results * OUTSIDE LAB RESULTS (11/23/2024) 11/23/2024 Ladan Riki Gregg [facility] LABORATORY Final Result documented in this [...] and were consensually agreed upon. Care Teams Band Saw Filer Relationship Specialty Start Date End Date Og Broussard MD PCP - General 02/14/08 documented as of this encounter
--- OUTSIDE RECORDS SUMMARY | 2025-01-26 06:40 | External Medical Summary | Summary of Care ---
Author Name Unknown Organization [facility] Address [address] [facility] [place] [address] Phone [phone] Care Team Providers Care Mediation Commissioner Name Role Phone Og Broussard MD Primary Care Provider [phone]- [phone] Reason for Visit * Reason Comments Dosage Adjustment Via Phone (anticoag Cl inic) Encounter Details Date Type Department Care Team (Late st Contact Info) Description 07/30/2024 6:30 AM EDT Anticoagulation [facility] Services, Tremaine Ortiz [address] [place] [address] [place] [address] [facility], [address] [place] [address] Status post mechanical aortic valve replacement* Allergies Active Allergy Reactions Criticality Noted Date Comments Lisinopril 01/07/2011 ED Morphine And Codeine 10/27/2015 "goofy and combative" documented as of this encounter (statuses as of 07/30/2024) Medications Medication Sig Dispensed Refills Start Date End Date Status FlippsTOUCH ULTRA SYSTEM W/DEVICE KITIndications:DM type 2, goal [...] or Wheezing. 18 g 4 06/09/2021 Active Vitamin B-12 1000 MCG Oral Tablet (Cyanocobalamin) TAKE 1 TABLET BY MOUTH ONCE DAILY 90 Tablet 3 07/05/2023 Active Losartan Potassium 25 MG Oral Tablet [...] evening. Or take as directed by the [facility] 64 Tablet 3 05/24/2024 Active [...] AND EVENING MEALS. 360 Tablet 06/27/2024 Active documented as of this encounter (statuses as of 07/30/2024) Active Problems Problem Noted Date Diagnosed Date [...] as of this encounter (statuses as of 07/30/2024) Resolved Problems Problem Noted Date Diagnosed Date [...] as of this encounter (statuses as of 07/30/2024) Immunizations Name Administration Dates Next Due TDAP, [...] as of this encounter Progress Notes * Ladan Gregg RPh - 07/30/2024 10:15 AM EDT Agree with plan. Ladan Gregg Rph, Pharm.D. Clinical Pharmacist Telepharmacy [phone] 07/30/2024,10:15 AM * Bridget Redd, PHARM Student - 07/30/2024 9:59 AM EDT Images from the original note were not included. Medication Therapy Disease Management - Anticoagulation Patient: Raul Lyn Tomy | : 1965 Subjective Contacts Contact Date/Time Type Contact Phone/Fax 07/30/2024 11:37 AM EDT Phone (Outgoing) Raul Huitron (Self) [phone] (M) Patient-Reported Symptoms: Patient Findings Negatives: Signs/symptoms of bleeding, Change in health, Upcoming invasive procedure, Missed doses,Extra doses, Change in medications, Change in diet/appetite, Bruising Objective Current Warfarin Dose As of 07/30/2024 Warfarin maintenance plan: 15 mg (5 mg x 3) every Mon, Fri; 10 mg (5 mg x 2) all other days INR Result As of 07/30/2024 INR goal: 2.5-3.5 INR used for dosin.2 (07/26/2024) Assessment & Plan Warfarin Plan As of 07/30/2024 Full warfarin instructions: 07/30: 25 mg; Otherwise 15 mg every Mon, Wed, Fri; 10 mg all other days Next INR check: 08/10/2024 Repeat PT/INR in 2 week(s) Weekly dose: increased Additional Dosing Information: Description Orlin Redd, PHARM Student Clinical Pharmacist 07/30/2024, 9:59 AM * Vitor Bella CPhT - 07/27/2024 11:02 AM EDT Fax received from Orlin with 07/26/24 INR result. INR = 2.2 Vitor Bella CPhT Candy Polisher II Centralized [facility] Services ([facility]) (formerly Telepharmacy) 07/27/2024,11:02 AM documented in this encounter Plan of Treatment Upcoming Encounters Date Type Department Care Team (Late st Contact Info) Description 08/13/2024 6:30 AM EDT Anticoagulation Centralized Clinical Pharmacy Services, Tremaine Ortiz [address] [place] [address] [place] [address] [facility], [address] [place] [address] 09/03/2024 1:40 PM EST Office Visit [address] [place] [address] Og Broussard MD [address] [facility] [place] [address] Health Maintenance Due Date Last Done Comments [...] shot) (#1) 2024 Lipid Panel 06/01/2029 06/01/2024, 03/2022, 11/18/2020, Additional history exists HPV (Gardasil) Vaccine Aged Out No lo nger eligible based on patient's age to complete this topic MENINGOCOCCAL (MENACTRA/MENVEO) Aged Out No longer eligible based on patient's age to complete this topic documented as of this encounter Medical Devices Implanted Type Area Mica Washer Gluer Device Identifier Shelf Expiration Date Model / Serial / Lot Graft Valved Valsalva 27mm - [id number] - [id number] Implanted:Qty: 1 on 10/09/2015 by Khalif Melgar [place] [facility] [place] : CARDIOVASCULAR 01/21/2018 [id number] / [id number] / Sut Steel 6 M654g - [id number] Implanted:Qty: 4 on 10/09/2015 by Khalif Melgar MD [place] [facility] [place] Chest JNJ : [employer] 06/23/2020 [id number] / / [id number] documented as of this encounter Procedures Procedure Name Priority Date/Time Associated Diagnosis Comments OUTSIDE LAB-PT/INR Routine 07/26/2024 documented in this encounter Results * OUTSIDE LAB-PT/INR (07/26/2024) INR-OUTSIDE LAB 2.2 OUTS [facility] (SEE SCANNED REPORT) 07/26/2024 History Per Patient LABORATORY OUTSIDE LAB (SEE SCANNED REPORT) documented in [...] and were consensually agreed upon. Care Teams Mediation Commissioner Relationship Specialty Start Date End Date Og Broussard MD [address] [place] [address] PCP - General 02/14/08 documented as of this encounter
--- OUTSIDE RECORDS SUMMARY | 2025-01-26 06:40 | External Medical Summary | Summary of Care ---
Author Name Unknown Organization [facility] Address [address] [facility] [place] [address] Phone [phone] Care Team Providers Care Lotteries Agent Name Role Phone Og Broussard MD Primary Care Provider +1- [phone] Encounter Details Date Type Department Care Team (Late st Contact Info) Description 11/12/2024 Orders Only PATIENT PORTAL DO NOT DELETE THIS DEPT USED BY [place]AD[place] [id number] Allergies Active Allergy Reactions Criticality Noted Date Comments Lisinopril 01/07/2011 ED Morphine And Codeine 10/27/2015 "goofy and combative" documented as of this encounter (statuses as of 11/12/2024) Medications Nomad GamesTOUCH ULTRA SYSTEM W/DEVICE KITIndications:D M type 2, [...] as of this encounter (statuses as of 11/12/2024) Active Problems Problem Noted Date Diagnosed Date [...] as of this encounter (statuses as of 11/12/2024) Resolved Problems Problem Noted Date Diagnosed Date [...] as of this encounter (statuses as of 11/12/2024) Immunizations Name Administration Dates Next Due TDAP, [...] Centralized Clinical Pharmacy Services, Tremaine Ortiz [address] [place] [address] [place] [address] [place] [address] Health Maintenance Due Date Last Done Comments [...] this encounter Medical Devices Implanted Type Area Product Development Worker Device Identifier Shelf Expiration Date Model / Serial / Lot Graft Valved Valsalva 27mm - [id number] - [id number] Implanted:Qty: 1 on 10/09/2015 by Khalif Melgar MD at [place] [facility] [place] A[place] [facility] JACINDA : CARDIOVASCULAR 01/21/2018 [id number] / [id number] / Sut Steel 6 M654g - [id number] Implanted:Qty: 4 on 10/09/2015 by Khalif Melgar MD at [place] [facility] [place] Chest JNJ : [employer] 06/23/2020 [id number] / / [id number] documented as of this encounter Advance Directives [...] and were consensually agreed upon. Care Teams Lotteries Agent Relationship Specialty Start Date End Date Og Broussard MD PCP - General 02/14/08 documented as of this encounter
[2025-01-26] MEDS: SODIUM CHLORIDE 0.9% 1,000 ML IV SCH (07:08)
[2025-01-26] MEDS: HYDROmorphone INJ 0.5 MG/0.5 ML SYR IV PRN ×2 (08:09→13:32)
[2025-01-26] MEDS: METOPROLOL SUCC 50MG EXT REL TAB PO SCH (08:48)
[2025-01-26] MEDS: LOSARTAN POTASSIUM 25 MG TAB PO SCH (08:48)
[2025-01-26] MEDS: CYANOCOBALAMIN (B-12) 500 MCG TABLET PO SCH (08:48)
[2025-01-26 08:56] LABS: Hemoglobin 12.6 g/dl (14.0-18.0)
[2025-01-26] MEDS ORDERED: ROSUVASTATIN CALCIUM 5 MG TAB PO SCH (09:00)
[2025-01-26 09:43] LABS: Estimated Average Glucose 157 mg/dl; Hemoglobin A1C 7.1 % (4.5-5.6)
[2025-01-26] MEDS ORDERED: GLUCOSE 10 TAB/TUBE PO PRN (09:47)
[2025-01-26] MEDS ORDERED: GLUCOSE 40% GEL 15 GM TUBE PO PRN (09:47)
[2025-01-26] MEDS ORDERED: GLUCAGON FOR INJ 1 MG VIAL SQ PRN (09:47)
[2025-01-26] MEDS ORDERED: DEXTROSE 50% 50 ML SYRINGE IV PRN (09:47)
[2025-01-26] MEDS ORDERED: CARBOHYDRATES FOR HYPOGLYCEMIA PO PRN (09:47)
[2025-01-26] MEDS: INSULIN ASPART PER UNIT CHARGE SC SCH (09:54)
[2025-01-26] MEDS ORDERED: MoRPHine SULFATE 2 MG/ML CARP IV PRN (13:13)
--- NOTE | 2025-01-26 13:31 | Communication Note ---
Date of Service: January 26, 2025 Patient was seen and examined at bedside. 60-year-old male with PMH of PSVT, bicuspid aortic valve status post mechanical AVR on Coumadin, ascending aortic aneurysm status post surgery, PAF/PSVT, HTN, HLD, T2DM on oral meds, GERD presented to the ED with complaint of worsening right hip pain. 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 He reports he has been moving around and bearing the pain at home/using tylenol, the pain was gradually worsening with acute worsening 1 day ago IMPROVEMENT DIRECTOR which prompted him to present to the ED. He is being managed for the following: Mechanical Fall Right hip pain, traumatic Gluteus medius hematoma x right Hematoma in the setting of Coumadin coagulopathy Supratherapeutic INR: INR of 4.3 at presentation, hemoglobin of 15. Trend H&H and PT/INR. Hold off on reversal unless hemodynamically stability given mechanical heart valve. Mechanical heart valve status Patient presents with fall and worsening right hip pain. Noted to have gluteus medius hematoma at ED. Admitting CT Head w/ no acute finding. CT rt hip s/o right gluteus medius hematoma, recommends US for better eval. Patient with intractable pain at ED requiring fentanyl 100 mcg IV twice. Upon being transferred up to the floor, patient complained of pain not being controlled with Dilaudid and oxycodone, demanded fentanyl. For now, Tylenol is scheduled, added morphine, increase the dose of Dilaudid, oxycodone as it is. Lidocaine patch added. Bowel regimen. If pain is not controlled, will consult pain management. Will send US right hip to further eval hematoma, consult ortho for comanagement. Given pt w/ mechanical valve and complex cardiac hx, anticoagulation needs started as soon as deemed stable from hematoma perspective. Cardio consult given complex anticoagulation need and mechanical aortic valve. For now hold both aspirin and Coumadin. Fall precaution, bed rest. PT/OT evaluation in next 1-2 days. Elevated CPK: CPK elevated at 250, hold statin for now. Trend CPK. Complex cardiac history: PAF/bicuspid AV s/p mechanical AVR on Coumadin, ascending aortic aneurysm s/p Sx. c/w cardiac meds as able. Other chronic medical conditions: Continue with/resume home meds as and when able. hypertension, stable hyperlipidemia, on statin Rx DM 2 on oral meds, reasonable control as of last outpatient hemoglobin A1c of 7.1 from 2020. A1c this admission 7.1. DVT prophylaxis. SCDs if INR less than 2 while Coumadin on hold; resume Coumadin INR goal between 2.5-3.5 if H&H stable Full code Text document was generated using [employer] voice recognition software. It may contain grammatical or spelling errors. Kindly contact undersigned for clarification of any documentation item in question. For detailed information on the patient, reported today's H&P note.
[2025-01-26] MEDS: ACETAMINOPHEN 325 MG TAB PO SCH (13:33)
[2025-01-26] MEDS: ONDANSETRON 4 MG OD TAB PO PRN (14:18)
[2025-01-26] MEDS: LIDOCAINE 5% 1 PATCH TD SCH (14:19)
--- NOTE | 2025-01-26 15:18 | Ultrasound Report ---
Exam: Targeted soft tissue pelvic wall/buttock ultrasound. History: Fall and trauma to right buttock region. Pain. Evaluate for hematoma. Comparison: Same day right hip CT correlate exam. Findings: Targeted right gluteal region demonstrates subcutaneous edematous changes. Linear low-level echoes likely representing fluid along the deep subcutaneous soft tissues. No discrete drainable fluid collection. No discrete mass. Impression: Soft tissue edematous changes without discrete drainable fluid collection or mass. Electronically signed by Raul Barrera 01-26-2025 3:18 PM
--- NOTE | 2025-01-26 16:41 | Orthopedic Consultation ---
Date of Consultation January 26, 2025 Assessment & Plan (1) Hematoma of right hip: Discussed with the patient that I reviewed his x-rays and CT scan and agree with the radiologist that I do not visualize an obvious fracture. Does appear to be some intramuscular swelling within the gluteus medius consistent with a hematoma. This is consistent with his exam. Low suspicion of fracture given that the patient says he actually feels comfortable standing at times. Also the fact that he has been able to walk on this with crutches for over a week. However given his level of discomfort would recommend getting a right hip MRI to rule out a fracture. Do not recommend surgical drainage of the hematoma. His INR should be corrected to decrease the risk of further bleeding. Also would consider consulting cardiology if his aspirin can be discontinued or held as this is going to affect his ability to clot. History of Present Illness Attending Physician: Debby Wilson MD History of Present Illness 60-year-old male, medical history significant for open heart surgery with mechanical valve on Coumadin and 162 mg aspirin per day. Tuesday last week he fell on a sweeper down in his basement. He had immediate onset of lateral hip pain. He was using a baseball bat initially and then got crutches on Tuesday to help himself get around. He was expecting the pain would get better over the week but it actually got a little bit worse on and into yesterday. He came to the emergency room last night. X-rays and a CT scan were obtained. No fracture was demonstrated. CT scan showed a hematoma in his gluteus medius. Orthopedics was consulted. Patient was seen and examined on the floor. Points to the lateral aspect of the hip as to where it hurts. He says he actually would sometimes feel better standing and has been alternating between sitting and standing. It is worse when he tries to walk. No changes if he strains to have a bowel movement or increases his intra-abdominal pressure by firing his abdominal muscles. No numbness or tingling down the leg. No back pain. Has been taking Tylenol at home. Does not take any NSAIDs as a result of being on Coumadin. Sometimes he says the pain radiates into his groin and medial thigh. Allergies Allergy/AdvReac Type Severity Reaction Status Date / Time lisinopril Allergy Unknown CAN'T Verified 01/26/25 02:21 REMEMBER codeine AdvReac Intermediate DELIRIUM Verified 01/26/25 02:21 morphine AdvReac Intermediate DELIRIUM Verified 01/26/25 02:21 Home Medications Medication Instructions Recorded Confirmed Type aspirin 81 mg tablet,delayed 162 mg PO DAILY 06/23/19 01/26/25 History release glimepiride 2 mg tablet 2 mg PO QAM 06/23/19 01/26/25 History cyanocobalamin (vitamin B-12) 1,000 mcg PO DAILY 01/26/25 01/26/25 History 1,000 mcg tablet (Vitamin B-12) lidocaine 5 % topical patch 1 patch topical DAILY PRN Pain 01/26/25 01/26/25 History losartan 25 mg tablet 25 mg PO QAM 01/26/25 01/26/25 History metformin 500 mg tablet 1,000 mg PO BID 01/26/25 01/26/25 History metoprolol succinate 100 mg 50 mg PO BID 01/26/25 01/26/25 History tablet,extended release 24 hr rosuvastatin 5 mg tablet 5 mg PO QAM 01/26/25 01/26/25 History sildenafil (pulm.hypertension) 20 40 - 60 mg PO DIRECTED PRN 1 HR 01/26/25 01/26/25 History mg tablet PRIOR TO INTERCOURSE warfarin 5 mg tablet (Jantoven) See Rx Instructions .Route .COMPLEX 01/26/25 01/26/25 History Patient History Medical History (Updated 01/26/25 @ 09:12 by Bogdan Ling MD) Diabetes Surgical History (Updated 06/23/19 @ 13:13 by Martha Gallego DO) H/O heart valve replacement with mechanical valve Social History Smoking Status: Never smoker Second Hand Exposure: No; Do You Dip or Chew Tobacco: No; Tobacco Cessation Education Requested by Patient: No Hx Alcohol Use: No Hx Substance Use: No Preferred Language: Mongolian Communication Ability: Effective Upstairs Maid Required: No Beliefs That Will Affect Care: None Current Living Situation: Spouse Other Information That Helps Us Care for You: No Feels Safe at Home: Yes Safety Concerns: Feels Safe At This Time Assistive Devices: Glasses and Walker Physical Exam Physical Exam: Patient sitting up in bed at the time of evaluation in no acute distress. Right lower extremity exam reveals the patient to be sensory intact to light touch L3-S1 dermatomes. He tolerates a gentle logroll. Straight leg raise test is negative. I can flex him up to 90 degrees of hip flexion easily. He has some discomfort with a straight leg raise. Unable to do a lateral straight leg raise. Palpation reveals him to be maximally tender to palpation over the gluteus medius where he has swelling noted. He has a lidocaine patch on in this area. No tenderness over the spinous processes in the lumbosacral spine. No SI joint tenderness. Results & Data Vital Signs (Past 12 Hours) Vital Signs Temp Pulse Pulse Pulse Resp BP BP 01/26/25 15:05 80 16 136/68 01/26/25 11:12 36.6 C 18 136/68 01/26/25 09:53 75 18 120/74 01/26/25 07:00 76 16 121/74 01/26/25 06:16 75 01/26/25 05:33 82 22 149/86 H 01/26/25 05:03 81 13 131/77 01/26/25 05:00 80 18 131/77 01/26/25 04:36 85 16 134/80 Pulse Ox O2 Del Method 01/26/25 15:05 94 Room Air 01/26/25 11:12 94 Room Air 01/26/25 09:53 93 Room Air 01/26/25 07:00 92 Room Air 01/26/25 06:16 01/26/25 05:33 96 01/26/25 05:03 98 01/26/25 05:00 98 01/26/25 04:36 95 Laboratory Results INR was elevated at 4.5 on admission. Diagnostic Findings Hip/Pelvis X-Ray 01/26/25 02:02 EXAM: XR hip RT 2V w pelvis CLINICAL HISTORY: Right hip trauma. TECHNIQUE: X-ray images of the right hip joints and pelvis were obtained in anteroposterior (AP) projection. COMPARISON: CT pelvis dated 06/23/2019. FINDINGS: Pelvic Bones: The pelvic bones, including the iliac wings, ischium, pubis, and sacrum, are normal and intact. No evidence of fractures, dislocations, or significant osseous lesions. Hip Joints: Right hip joint: Degenerative changes manifested by osteophytes, joint space narrowing, and subchondral sclerosis. Moderate osteoarthritis of the left hip joint. No evidence of hip dislocation or subluxation. Acetabular structures appear normal and intact. No signs of acetabular fracture or dysplasia. Femoral heads are normal and centered within the acetabulum. No evidence of fractures, avascular necrosis, or significant deformities. Sacroiliac joints : Degenerative changes. Symphysis Pubis: Degenerative changes. Soft Tissues: Small calcification was seen adjacent to the greater trochanter of the right femur, likely ligamentous. Unchanged. Multiple pelvic phleboliths are noted. Additional Findings: No other significant abnormalities were noted. IMPRESSION: 1. No evidence of acute fractures or dislocations. 2. Mild to moderate osteoarthritis of both hip joints. 3. No significant interval change. DISCLAIMER:A subtle bone abnormality or fracture may not be readily apparent on x-rays, thus clinical correlation and further imaging including follow up CT, MRI, or follow up x-rays are advised as needed. Electronically signed by George Vallecillo 01-26-2025 03:[address] 01/26/25 02:28 EXAM: CT head/brain wo con CLINICAL HISTORY: trauma on coumadin TECHNIQUE: Multiple axial images are obtained from the skull base to the vertex without contrast. CT scan was performed according to ALARA (as low as reasonable achievable). COMPARISON: jun 23 03:04:50 CHIEF PETROLEUM ENGINEER. FINDINGS: There is cerebral atrophy. No evidence of space occupying lesion, hemorrhage, edema, mass effect, midline shift, extra axial collection, or hydrocephalus is noted. Basal cisterns are symmetric and normal in size and configuration. There are scattered periventricular hypodensities as can be seen with chronic microvascular ischemic changes. The shaikh-white matter differentiation is preserved. Visualized paranasal sinuses and mastoid air cells are well aerated. Orbital contents are within normal limits. Bony structures are intact. No significant interval newabnormality detected. IMPRESSION: 1. No evidence of acute intracranial abnormality is demonstrated. 2. Chronic microvascular ischemic changes.-stable. 3. Cerebral atrophy.-stable. 4. Prior scalp hematoma is completely resolved Electronically signed by Eleuterio Khalil 01-26-2025 05:[address] 01/26/25 02:28 EXAM: CT hip RT wo con CLINICAL HISTORY: fall, right hip pain TECHNIQUE: Contiguous axial CT images of right hip were obtained without intravenous contrast. Coronal and sagittal reconstructions were likewise performed and indicated to increase the sensitivity for detecting clinically relevant pathology. CT scan was performed according to ALARA (as low as reasonable achievable). COMPARISON: None. FINDINGS: Suboptimal evaluation due to motion artifacts. Enthesopathic changes are noted from ischial tuberosity, pubic rami and trochanters. Right gluteus medius muscle appears diffusely bulky and edematous. Suspicious hypodensities are noted within it, may represent hematoma (in the given clinical background of trauma). However, it is sub-optimally evaluated as no soft tissue window images available. Ultrasound correlation is suggested for better evaluation. No acute fracture or dislocation. No destructive osseous lesion. Rest of the visualized muscles and tendons appear grossly unremarkable. No cortical destruction to suggest osteomyelitis. No abscess formation. No significant joint effusion. Normal subcutaneous adipose space. IMPRESSION: 1. No acute fracture or dislocation. 2. Suboptimal evaluation due to motion artifacts. 3. Enthesopathic changes are noted from ischial tuberosity, pubic rami and trochanters. 4. Right gluteus medius muscle appears diffusely bulky and edematous. Suspicious hypodensities are noted within it, may represent hematoma (in the given clinical background of trauma). However, it is sub-optimally evaluated as no soft tissue window images available. Ultrasound / soft tissue window correlation is suggested for better evaluation. Electronically signed by Eleuterio Khalil 01-26-2025 05:[address] 01/26/25 02:28 EXAM: CT pelvis wo con CLINICAL HISTORY: fall, right hip pain TECHNIQUE: Contiguous axial CT images of pelvis were obtained without intravenous contrast. Coronal and sagittal reconstructions were likewise performed and indicated to increase the sensitivity for detecting clinically relevant pathology. CT scan was performed according to ALARA (as low as reasonable achievable). COMPARISON: None. FINDINGS: Mild arthritis of bilateral hip in the form of small marginal osteophyte. No acute fracture or dislocation. No destructive osseous lesion. The visualized muscles and tendons appear grossly unremarkable. No cortical destruction to suggest osteomyelitis. No abscess formation. No significant joint effusion. There are no soft tissue masses. Normal subcutaneous adipose space. Multiple small uncomplicated sigmoid colonic diverticulosis IMPRESSION: No obvious acute trauma related abnormality seen. Electronically signed by Eleuterio Khalil 01-26-2025 05:04 AM Soft Tissue Ultrasound 01/26/25 15:01 Exam: Targeted soft tissue pelvic wall/buttock ultrasound. History: Fall and trauma to right buttock region. Pain. Evaluate for hematoma. Comparison: Same day right hip CT correlate exam. Findings: Targeted right gluteal region demonstrates subcutaneous edematous changes. Linear low-level echoes likely representing fluid along the deep subcutaneous soft tissues. No discrete drainable fluid collection. No discrete mass. Impression: Soft tissue edematous changes without discrete drainable fluid collection or mass. Electronically signed by Raul Barrera 01-26-2025 3:18 PM (1) Hematoma of right hip Encounter type: initial encounter Qualified Code(s): S70.01XA - Contusion of right hip, initial encounter
[2025-01-27 07:30] LABS: Basophils # (auto) 0.01 K/uL (0.00-0.20); Basophils % (auto) 0.2 %; Eosinophils # (auto) 0.24 K/uL (0.00-0.50); Eosinophils % (auto) 3.7 %; Hematocrit (blood only) 32.6 % (42.0-52.0); Hemoglobin 11.4 g/dl (14.0-18.0); Immature Granulocytes # (auto) 0.01 K/uL (0.01-0.20); Immature Granulocytes % (auto) 0.2 %; Lymphocytes # (auto) 1.74 K/uL (1.20-3.40); Lymphocytes % (auto) 26.9 %; Mean Corpuscular Hemoglobin 32.3 pg (25.0-34.0); Mean Corpuscular Volume 92.4 fL (80.0-100.0); Mean Platelet Volume 9.1 fL (9.4-12.4); Monocytes # (auto) 0.48 K/uL (0.11-0.59); Monocytes % (auto) 7.4 %; Neutrophils % (auto) 61.6 %; Platelet Count 172 K/uL (130-400); RDW Coefficient of Variation 12.5 % (11.5-14.5); RDW Standard Deviation 41.7 fL (36.4-46.3); Red Blood Count 3.53 M/uL (4.70-6.10); White Blood Count 6.48 K/ul (4.8-10.8)
[2025-01-27 07:57] LABS: BUN Creatinine Ratio 18.6 (10-20); Calcium 8.4 mg/dl (8.6-10.3); Creatinine Clr Calc Pharmacy 139.5 ml/min; INR 5.3 (0.9-1.1); Potassium 3.6 mmol/L (3.5-5.1); Prothrombin Time 49.3 Seconds (9.0-12.0)
[2025-01-27] MEDS: PHYTONADIONE 5 MG TAB PO STA (08:49)
--- NOTE | 2025-01-27 10:18 | Orthopedic Progress Note ---
Date of Service January 27, 2025 Assessment & Plan (1) Hematoma of right hip: Plan: Recommend MRI today to rule out fracture. Suspect this will simply show his hematoma. Do not recommend surgical drainage of the hematoma. INR should be corrected to decrease the risk of further bleeding. Consider consulting cardiology if his aspirin can be discontinued or held as this is going to affect his ability to clot. May work with PT OT weightbearing as tolerated for evaluation his management. Instructed the patient not to overdo his activity however. Ice to the right hip. If no fracture is visualized on his MRI patient can discharge from the hospital as soon as he is felt to be stable from the medical team standpoint. He can follow-up with his primary care physician. Recommend improved control of his INR to decrease risk of recurrent hematoma. Admission and Anticipated Discharge Date Admission Date: January 26, 2025 Subjective Patient seen and examined on a.m. rounds. He reports that his right hip is feeling better today. Still no fevers or chills. Did not have the MRI completed yesterday. No numbness or tingling down the right leg. Went over 12 hours without any pain medication between last night and this morning. Physical Exam Physical Exam: On exam he is resting comfortably in bed in no acute distress. He is able do a straight leg raise on the right side. I can flex him up to 100 degrees this morning. External rotation is limited to 20 degrees internal rotation to 10 degrees secondary to lateral hip pain. Inspection of his skin reveals no significant change from yesterday. He still has swelling and faint bruising over the lateral aspect of the hip consistent with a hematoma. Distally neurovascularly intact. Results & Data Vital Signs (Past 12 Hours) Vital Signs Temp Pulse Resp BP Pulse Ox O2 Del Method 01/27/25 07:39 36.7 C 71 18 116/72 92 Room Air Laboratory Results INR is actually higher today at 5.3 than yesterday when it was 4.5 (1) Hematoma of right hip Encounter type: initial encounter Qualified Code(s): S70.01XA - Contusion of right hip, initial encounter
--- NOTE | 2025-01-27 13:12 | Magnetic Resonance Report ---
MR hip RT wo con CLINICAL HISTORY: 60 years-old Male with rule out fracture. hematoma on CT. Acute right hip pain COMPARISON: Ultrasound and CT studies 02/15 TECHNIQUE: Multiplanar, multi sequence MRI of the right hip was performed without intravenous contras t. FINDINGS: LABRUM: To the extent that it is visualized, there is bilateral acetabular degeneration without acut e tear identified. No evidence of chondrolabral separation or paralabral cyst. BONE MARROW: Bone marrow signal is within normal limits. No evidence of avascular necrosis, fractur e or transient osteoporosis. BURSAE: Edema noted within the bilateral greater trochanteric bursa. HIP JOINT: [id number] osteoarthritis of the hips. There is no evidence for femoral-acetabular or ischiofemoral impingement syndrome. There is no joint effusion. No intraarticular loose body is evident. MUSCLES: Redemonstration of a right gluteus medius intramuscular hematoma measuring up to approximat abdi 9 cm in length. The visualized insertional gluteal tendons appear intact as visualized, however t here is apparent tearing of the myotendinous junction of the right gluteus medius. There is a large a mount of edema present within the right gluteal musculature extending into the adductor space. Additi onally, there is a prominent amount of right lateral subcutaneous edema. SCIATIC NERVE: The morphology and signal characteristics of the sciatic nerve appear normal. Bilateral hydroceles are noted. Colonic diverticulosis. IMPRESSION: 1. Large right gluteal intramuscular hematoma redemonstrated. 2. Mild to moderate osteoarthritis of the hips without acute fracture, dislocation or bone marrow uyen ma. 3. Probable tearing of the myotendinous junction of the right gluteus medius, suboptimally evaluated secondary to the edema and motion degradation. ACT 112: Negative or not required by law. The above report was generated using voice recognition software. It may contain grammatical, syntax o r spelling errors. Electronically signed by: Joey Medrano M.D. 01/27/2025 1:09 PM
--- NOTE | 2025-01-27 14:16 | Cardiology Consultation ---
Date of Consultation January 27, 2025 Assessment & Plan (1) Ground-level fall: (2) H/O mechanical aortic valve replacement: (3) H/O aortic aneurysm repair: (4) Supratherapeutic INR: Plan 60 year old with past medical history of paroxysmal atrial fibrillation, SVT, bicuspid aortic valve s/p mechanical AVR, ascending aortic aneurysm s/p repair, HTN, dyslipidemia, DM 2, who presented to ED after mechanical fall. Hip MRI with large right gluteal intramuscular hematoma. Coumadin and aspirin held. - patient feels well from cardiac standpoint - supratherapeutic INR, today 5.3 - hold coumadin due to supratherapeutic INR, INR goal 2.5-3.5, would be high risk for thrombosis if INR below 2.5 due to history of mechanical aortic valve - aspirin on hold due to hematoma and bleeding risk, resume per orthopedics - continue metoprolol succinate, losartan Case discussed with attending physician, further recommendations per Dr. Polk. I spent a total of 30 minutes on the date of service in preparation, delivery, and documentation of the care provided to this patient excluding any time spent in the performance of separately billed services. This visit was a split-shared visit with the substantial portion of the decision making performed by the supervising pipe fitter street service/billing provider. Supervising Physician Co-Signing Physician Notes I spent a total of 50 minutes on the date of service in preparation, delivery, and documentation of the care provided to this patient, excluding any time spent in the performance of separately billed services. I have personally performed a history and physical examination on the patient. I have reviewed the advance practitioner's documentation, and I agree with, and take responsibility for the plan of care. 60-year-old male with past medical history of paroxysmal atrial fibrillation, status post mechanical AVR (09/2015), ascending aortic aneurysm s/p repair, HTN, HLD, DM II presented yesterday after having a mechanical fall. Patient states that he heard the telephone ringing ran down the stairs and tripped over his vacuum coil cleaner and landed on his right hip. He was found to have a large right gluteal intramuscular hematoma. Cardiology was consulted to see if he was safe to hold his anticoagulation. Obviously with a mechanical aortic valve and paroxysmal atrial fibrillation holding Coumadin is not without risk however his INR has been supratherapeutic (5.3 today) and he was given a low dose of vitamin K and repeat INR is pending for today. Of holding anticoagulation/aspirin discussed with patient however given this large right gluteal hematoma no other options available. His INR is supratherapeutic repeat INR pending for today. Will continue to monitor for now. Orthopedic surgery is on case. History of Present Illness Reason for Consultation: mechanical aortic valve, complex anticoagulation Requesting Physician: Román lomeli Attending Physician: Debby Wilson MD History of Present Illness 60 year old with past medical history of paroxysmal atrial fibrillation, SVT, bicuspid aortic valve s/p mechanical AVR, ascending aortic aneurysm s/p repair, HTN, dyslipidemia, DM 2, who presented to ED after fall. States he tripped over cord, denies loss of consciousness. Fell onto right hip. Concern for gluteus medius hematoma. INR on admission 4.5. Coumadin and aspirin held. Cardiology consulted for further management of anticoagulation. On exam today, he states he feels well from cardiac standpoint. Notes right hip pain. Denies chest pain, palpitations, shortness of breath, lightheadedness, e jens. Has been compliant with all medications. Follows with outpatient cardiology and [facility] anticoagulation clinic. Denies abnormal bleeding. INR today 5.3. MRI of hip with large right gluteal intramuscular hematoma. Allergies Allergy/AdvReac Type Severity Reaction Status Date / Time lisinopril Allergy Unknown CAN'T Verified 01/26/25 02:21 REMEMBER codeine AdvReac Intermediate DELIRIUM Verified 01/26/25 02:21 morphine AdvReac Intermediate DELIRIUM Verified 01/26/25 02:21 Home Medications Medication Instructions Recorded Confirmed Type aspirin 81 mg tablet,delayed 162 mg PO DAILY 06/23/19 01/26/25 History release glimepiride 2 mg tablet 2 mg PO QAM 06/23/19 01/26/25 History cyanocobalamin (vitamin B-12) 1,000 mcg PO DAILY 01/26/25 01/26/25 History 1,000 mcg tablet (Vitamin B-12) lidocaine 5 % topical patch 1 patch topical DAILY PRN Pain 01/26/25 01/26/25 History losartan 25 mg tablet 25 mg PO QAM 01/26/25 01/26/25 History metformin 500 mg tablet 1,000 mg PO BID 01/26/25 01/26/25 History metoprolol succinate 100 mg 50 mg PO BID 01/26/25 01/26/25 History tablet,extended release 24 hr rosuvastatin 5 mg tablet 5 mg PO QAM 01/26/25 01/26/25 History sildenafil (pulm.hypertension) 20 40 - 60 mg PO DIRECTED PRN 1 HR 01/26/25 01/26/25 History mg tablet PRIOR TO INTERCOURSE warfarin 5 mg tablet (Jantoven) See Rx Instructions .Route .COMPLEX 01/26/25 01/26/25 History Patient History Medical History Diabetes Surgical History (Updated 01/27/25 @ 14:15 by Ginger Worthington PA-C) H/O heart valve replacement with mechanical valve Social History Smoking Status: Never smoker Second Hand Exposure: No; Do You Dip or Chew Tobacco: No; Tobacco Cessation Education Requested by Patient: No Hx Alcohol Use: No Hx Substance Use: No Preferred Language: Pashto Communication Ability: Effective Skein Straightener Required: No Beliefs That Will Affect Care: None Current Living Situation: Spouse Other Information That Helps Us Care for You: No Feels Safe at Home: Yes Safety Concerns: Feels Safe At This Time Assistive Devices: Glasses and Walker Review of Systems Review of Systems: CONSTITUTIONAL: No change in weight, No weakness, No fatigue and No fevers, No sweats or chills. PULMONARY: No cough, sputum, or hemoptysis, No wheezing, No shortness of breath and No recent change in breathing. CARDIOVASCULAR: No chest pain, No dyspnea on exertion, No edema, No palpitations and No syncope. GASTROINTESTINAL: No abdominal pain, No change in bowel habits, No significant heartburn, No nausea, No vomiting, No diarrhea, No constipation, No blood in s tools or black tarry stools. No dysphagia. HEMATOLOGIC: No abnormal bleeding and No bruising. NEUROLOGICAL: Normal balance, No headaches and No weakness. Physical Exam Physical Exam: General: No acute distress. A+Ox3. HEENT: Normocephalic. Atraumatic. PERRL. EOMI. Conjunctiva and sclera clear. NECK: No carotid bruits. No JVD. Carotid upstrokes are brisk. Heart: RRR. S1 and S2 noted. +crisp mechanical murmur. No rubs or gallops. PMI non displaced. Lungs: Clear to auscultation. No wheezes. No rhonchi. No rales. Abdomen: Normal bowel sounds. Soft. Nontender. No masses or organomegaly. No abdominal bruits. Extremities: No edema. No clubbing or cyanosis. Pulses: radial=2/4, posterior tibial=2/4, dorsalis pedis = 2/4. NEURO: No focal deficits. PSYCH: Appropriate affect and insight. Results & Data Vital Signs (Past 12 Hours) Vital Signs Temp Pulse Resp BP Pulse Ox O2 Del Method 01/27/25 07:39 36.7 C 71 18 116/72 92 Room Air Laboratory Results Coagulation 01/27/25 Range/Units 06:45 PT 49.3 H (9.0-12.0) Seconds CBC 01/27/25 Range/Units 06:45 WBC 6.48 (4.8-10.8) K/ul RBC 3.53 L (4.70-6.10) M/uL Hgb 11.4 L (14.0-18.0) g/dl Hct 32.6 L (42.0-52.0) % Plt Count 172 (130-400) K/uL Neut # (Auto) 4.00 (1.40-6.50) K/uL Lymph # (Auto) 1.74 (1.20-3.40) K/uL Ray # (Auto) 0.48 (0.11-0.59) K/uL Eos # (Auto) 0.24 (0.00-0.50) K/uL Baso # (Auto) 0.01 (0.00-0.20) K/uL Comprehensive Metabolic Panel 01/27/25 Range/Units 06:45 Sodium 136 (136-145) mmol/L Potassium 3.6 (3.5-5.1) mmol/L Chloride 103 (98-107) mmol/L Carbon Dioxide 28 (21-32) mmol/L BUN 13 (6-23) mg/dl Creatinine 0.70 D (0.6-1.4) mg/dl Glucose 141 H (70-99(Fasting)) mg/dl Calcium 8.4 L (8.6-10.3) mg/dl Intake and Output 01/26/25 01/27/25 01/27/25 22:59 06:59 14:59 Intake Total 1100 / 1300 200 / 1300 1860 / 1860 Output Total 600 / 600 Balance 500 / 700 200 / 700 1860 / 1860 Intake: IV 1000 / 1000 1000 / 1000 Sodium Chloride 0.9% 1,000 ml @ 1000 / 1000 1000 / 1000 75 mls/hr IV .[id number] [facility] Rx#: [id number] Oral 100 / 300 200 / 300 860 / 860 Output: Emesis 600 / 600 Other: # Unmeasured Voids 1 2
--- NOTE | 2025-01-27 14:53 | Hospitalist Progress Note ---
Date of Service January 27, 2025 Assessment & Plan (1) Hip pain, right: Plan 60-year-old male with PMH of PSVT, bicuspid aortic valve status post mechanical AVR on Coumadin, ascending aortic aneurysm status post surgery, PAF/PSVT, HTN, HLD, T2DM on oral meds, GERD presented to the ED with complaint of worsening right hip pain. 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 He is being managed for the following: Mechanical Fall Right hip pain, traumatic Gluteus medius hematoma x right Hematoma in the setting of Coumadin coagulopathy Supratherapeutic INR: INR of 4.3 at presentation, hemoglobin of 15. Trend H&H and PT/INR. Hold off on reversal unless hemodynamically stability given mechanical heart valve. Mechanical heart valve status Patient presents with fall and worsening right hip pain. Noted to have gluteus medius hematoma at ED. Admitting CT Head w/ no acute finding. CT rt hip s/o right gluteus medius hematoma, recommends US for better eval. --> US right gluteus reviewed 01/27 01/27 MRI Rt hip: Large right gluteal intramuscular hematoma redemonstrated. No acute fracture. Probable tearing of the myotendinous junction of the right gluteus medius, suboptimally evaluated secondary to the edema and motion degradation. Patient with intractable pain at ED requiring fentanyl 100 mcg IV twice. Upon being transferred up to the floor, patient complained of pain not being controlled with Dilaudid and oxycodone, demanded fentanyl. For now, Tylenol is scheduled, added morphine, increase the dose of Dilaudid, oxycodone as it is. Lidocaine patch added. Bowel regimen. Pt appears to be in better control when at bedrest, worse w/ movement. Ortho on board, no Sx Ix for now, ice to right hip. Given pt w/ mechanical valve and complex cardiac hx, anticoagulation needs started as soon as deemed stable from hematoma perspective. will resume w/ clearance from ortho and input from cardio. Cardio consult given complex anticoagulation need and mechanical aortic valve. For now hold both aspirin and Coumadin unless recommended otherwise, await full cards eval. Fall precaution, bed rest. PT/OT evaluation. Because INR uptrending 5.3 and Hb downtrending 11.4 and pain worse at bedside exam, will give small po dose of vitamin K 2.5 mg, repeat inr at 4 pm and in AM. If inr closer to 2.5, will need warfarin resumed. Elevated CPK: CPK elevated at 250, hold statin for now. CPK slightly up to 319, repeat in AM. Complex cardiac history: PAF/bicuspid AV s/p mechanical AVR on Coumadin, ascending aortic aneurysm s/p Sx. c/w cardiac meds as able. Other chronic medical conditions: Continue with/resume home meds as and when able. hypertension, stable hyperlipidemia, on statin Rx DM 2 on oral meds, reasonable control as of last outpatient hemoglobin A1c of 7.1 from 2020. A1c this admission 7.1. DVT prophylaxis. SCDs if INR less than 2 while Coumadin on hold; resume Coumadin INR goal between 2.5-3.5 if H&H stable Full code Text document was generated using [employer] voice recognition software. It may contain grammatical or spelling errors. Kindly contact undersigned for clarification of any documentation item in question. Admission and Anticipated Discharge Date Admission Date: January 26, 2025 Subjective Patient was seen and examined at bedside. Patient was awaiting to go for MRI, complained of right hip pain and was standing up holding onto the table trying to find comfortable position. Discussed with RN to give him as needed pain medications before sending him down to MRI. Otherwise patient does not offer any new complaints, afebrile, eating okay. Physical Exam Physical Exam: GENERAL: uncomfortable due to right hip pain, no respiratory distress SKIN: Normal color, warm HEENT: Ecchymosis right frontal area, pink palpebral conjunctivae, no ptosis, moist buccal mucosa NECK : Supple, no tenderness CHEST : CTA, no tenderness HEART : RRR, mechanical murmur ABDOMEN: Some distention, nontender EXTREMITIES : Right hip tenderness, no LE swelling, no other conspicuous deformities noted NEUROLOGIC : Coherent, no facial asymmetry, no other gross focality Results & Data Results & Data Vital Signs (Past 12 Hours) Vital Signs Temp Pulse Resp BP Pulse Ox O2 Del Method 01/27/25 07:39 36.7 C 71 18 116/72 92 Room Air
[2025-01-27] MEDS: POLYETHYLENE (MIRALAX) 17 GM PACK PO SCH (17:11)
[2025-01-27 17:31] LABS: Prothrombin Time 29.3 Seconds (9.0-12.0)
[2025-01-27 20:40] LABS: Hematocrit (blood only) 32.9 % (42.0-52.0); Hemoglobin 11.4 g/dl (14.0-18.0)
[2025-01-27] MEDS: DOCUSATE SODIUM 100 MG CAP PO SCH (20:59)
[2025-01-28 07:11] LABS: Hematocrit (blood only) 31.1 % (42.0-52.0); Mean Corpuscular Hemoglobin 32.9 pg (25.0-34.0); Mean Corpuscular Hgb Conc 35.4 g/dL (32.0-36.0); Mean Corpuscular Volume 93.1 fL (80.0-100.0); Mean Platelet Volume 8.9 fL (9.4-12.4); Platelet Count 170 K/uL (130-400); RDW Coefficient of Variation 12.3 % (11.5-14.5); Red Blood Count 3.34 M/uL (4.70-6.10)
[2025-01-28 07:35] LABS: BUN Creatinine Ratio 16.7 (10-20); Calcium 8.6 mg/dl (8.6-10.3); Creatinine Clr Calc Pharmacy 116.3 ml/min; INR 1.3 (0.9-1.1); Potassium 3.8 mmol/L (3.5-5.1); Prothrombin Time 13.5 Seconds (9.0-12.0)
[2025-01-28] MEDS: Heparin IV Adult Wt-Based Low-Dose *NO* INITIAL Bolus Protocol IV SCH (09:01)
[2025-01-28] MEDS: HEPARIN 25000 UNIT/500 ML D5W 25,000 UNITS/500 ML BAG IV SCH (09:17)
--- NOTE | 2025-01-28 10:56 | Cardiology Progress Note ---
Date of Service January 28, 2025 Assessment & Plan (1) Ground-level fall: (2) H/O mechanical aortic valve replacement: (3) H/O aortic aneurysm repair: (4) Supratherapeutic INR: Plan 60 year old with past medical history of paroxysmal atrial fibrillation, SVT, bicuspid aortic valve s/p mechanical AVR, ascending aortic aneurysm s/p repair, HTN, dyslipidemia, DM 2, who presented to ED after mechanical fall. Hip MRI with large right gluteal intramuscular hematoma. Coumadin and aspirin held. 01/27/25: - patient feels well from cardiac standpoint - supratherapeutic INR, today 5.3 - hold coumadin due to supratherapeutic INR, INR goal 2.5-3.5, would be high risk for thrombosis if INR below 2.5 due to history of mechanical aortic valve - aspirin on hold due to hematoma and bleeding risk, resume per orthopedics - continue metoprolol succinate, losartan 01/28/25: -No cardiac complaints -Ongoing hip pain with limited range of motion of right leg. -INR low at 1.3 today. Start IV heparin. Start Coumadin 10 mg daily. INR goal 2.5-3.5 given mechanical valve. Daily INR. -Do not resume ASA. No clinical indication to continue at this time. -Continue metoprolol and losartan -Case discussed with Dr. Greenberg I spent a total of 30 minutes on the date of service in preparation, delivery, and documentation of the care provided to this patient excluding any time spent in the performance of separately billed services. This visit was a split-shared visit with the substantial portion of the decision making performed by the supervising spa therapist/billing provider. Admission and Anticipated Discharge Date Admission Date: January 27, 2025 Supervising Physician Co-Signing Physician Notes Patient seen and examined, chart and telemetry reviewed. Full assessment and plan as outlined above and personally endorsed 60-year-old male with mechanical aortic valve with suffered a mechanical fall several days prior to hospitalization. Initial INR supratherapeutic possible in response to the trauma. Now subtherapeutic after vitamin K administration Usual dose of warfarin 15 mg Tuesday 10 mg other days. Would resume warfarin today at 10 mg daily, IV heparin until INR rise I spent a total of 20 minutes on the date of service in preparation, delivery, and documentation of the care provided to this patient excluding any time spent in the performance of separately billed service Subjective Patient with ongoing leg/hip pain with minimal movement. No cardiac complaints. INR dropped to 1.3 this morning. Starting IV heparin. Review of Systems Review of Systems: All systems reviewed & are unremarkable except as noted in HPI & below Physical Exam Physical Exam: General: No acute distress. A+Ox3. HEENT: Normocephalic. Atraumatic. PERRL. EOMI. Conjunctiva and sclera clear. NECK: No carotid bruits. No JVD. Carotid upstrokes are brisk. Heart: RRR. S1 and S2 noted. +crisp mechanical murmur. No rubs or gallops. PMI non displaced. Lungs: Clear to auscultation. No wheezes. No rhonchi. No rales. Abdomen: Normal bowel sounds. Soft. Nontender. No masses or organomegaly. No abdominal bruits. Extremities: No edema. No clubbing or cyanosis. Pulses: radial=2/4, posterior tibial=2/4, dorsalis pedis = 2/4. NEURO: No focal deficits. PSYCH: Appropriate affect and insight. Results & Data Vital Signs (Past 12 Hours) Vital Signs Temp Pulse Resp BP Pulse Ox O2 Del Method 01/28/25 07:44 36.8 C 71 16 122/74 95 Room Air Laboratory Results Coagulation 01/27/25 01/28/25 Range/Units 16:45 06:43 PT 29.3 H 13.5 H (9.0-12.0) Seconds CBC 01/27/25 01/28/25 Range/Units 20:20 06:43 WBC 6.50 (4.8-10.8) K/ul RBC 3.34 L (4.70-6.10) M/uL Hgb 11.4 L 11.0 L (14.0-18.0) g/dl Hct 32.9 L 31.1 L (42.0-52.0) % Plt Count 170 (130-400) K/uL Comprehensive Metabolic Panel 01/28/25 Range/Units 06:43 Sodium 137 (136-145) mmol/L Potassium 3.8 (3.5-5.1) mmol/L Chloride 103 (98-107) mmol/L Carbon Dioxide 28 (21-32) mmol/L BUN 14 (6-23) mg/dl Creatinine 0.84 (0.6-1.4) mg/dl Glucose 132 H (70-99(Fasting)) mg/dl Calcium 8.6 (8.6-10.3) mg/dl Intake and Output 01/27/25 01/28/25 01/28/25 22:59 06:59 14:59 Other: # Unmeasured Voids 1 Medications Administered Current Inpatient Medications Acetaminophen (Acetaminophen 325 Mg Tab) 650 mg PO QID [facility] Stop: 02/25/25 13:14 Last Admin: 01/28/25 09:21 Dose: 650 mg Cyanocobalamin (Cyanocobalamin (B-12) 500 Mcg Tablet) 1,000 mcg PO DAILY [facility] Stop: 02/25/25 08:59 Last Admin: 01/28/25 09:21 Dose: 1,000 mcg Dextrose (Dextrose 50% 50 Ml Syringe) 25 - 50 ml IV UD PRN; Protocol PRN Reason: Hypoglycemia Protocol Stop: 02/25/25 09:46 Docusate Sodium (Docusate Sodium 100 Mg Cap) 100 mg PO BID [facility] Stop: 02/26/25 20:59 Last Admin: 01/28/25 09:21 Dose: 100 mg Glucagon (Glucagon For Inj 1 Mg Vial) 1 mg SQ UD PRN; Protocol PRN Reason: Hypoglycemia Protocol Stop: 02/25/25 09:46 Glucose (Glucose 40% Gel 15 Gm Tube) 15 - 30 gm PO UD PRN; Protocol PRN Reason: Hypoglycemia Protocol Stop: 02/25/25 09:46 Glucose (Glucose 10 Tab/Tube) 4 - 8 tab PO UD PRN; Protocol PRN Reason: Hypoglycemia Protocol Stop: 02/25/25 09:46 Hydromorphone HCl (Hydromorphone Inj 0.5 Mg/0.5 Ml Syr) 1 mg IV Q4H PRN PRN Reason: Severe Pain (Scale 7, 8, 9,10) Stop: 02/09/25 05:37 Last Admin: 01/28/25 09:22 Dose: 1 mg Heparin Sodium/Dextrose (Heparin 95378 Unit/500 Ml D5w) 25,000 units in 500 mls @ 20 mls/hr IV .Q24H [facility]; Protocol Stop: 02/27/25 08:14 Last Admin: 01/28/25 09:17 Dose: 1,000 units/hr, 20 mls/hr Insulin Aspart (Insulin Aspart Per Unit Charge) 0 units SC ACHS [facility] Stop: 02/25/25 09:46 Last Admin: 01/28/25 09:16 Dose: 3 units Lidocaine (Lidocaine 5% 1 Patch) 1 patch TD QAM [facility] Stop: 02/25/25 13:14 Last Admin: 01/28/25 09:21 Dose: 1 patch Lorazepam (Lorazepam 0.5 Mg Tab) 0.5 mg PO TID PRN PRN Reason: Anxiety Stop: 02/25/25 06:15 Losartan Potassium (Losartan Potassium 25 Mg Tab) [facility] [place]: 02/25/25 08:59 Last Admin: 01/28/25 09:21 Dose: 25 mg Metoprolol Succinate (Metoprolol Succ 50mg Ext Rel Tab) 50 mg PO BID [facility] Stop: 02/25/25 08:59 Last Admin: 01/28/25 09:21 Dose: 50 mg Miscellaneous (Carbohydrates For Hypoglycemia ) 15 - 30 gm PO UD PRN PRN Reason: Hypoglycemia Protocol Stop: 02/25/25 09:46 Miscellaneous (Remove Lidoderm Patch) 1 each N/A DAILY@2100 [facility] Stop: 02/25/25 20:59 Last Admin: 01/27/25 22:28 Dose: 1 each Morphine Sulfate (Morphine Sulfate 2 Mg/Ml Carp) 2 mg IV Q6H PRN PRN Reason: Moderate Pain (Scale 4, 5, 6) Stop: 02/09/25 13:12 Ondansetron HCl (Ondansetron 4 Mg Od Tab) 4 mg PO Q8H PRN PRN Reason: Nausea And Vomiting Stop: 02/25/25 12:40 Last Admin: 01/26/25 14:18 Dose: 4 mg Oxycodone HCl (Oxycodone Hcl Ir 5 Mg Tab (Immediate Release)) 5 - 10 mg PO QID PRN PRN Reason: Pain Stop: 02/09/25 05:37 Last Admin: 01/27/25 22:27 Dose: 10 mg Polyethylene Glycol (Polyethylene (Miralax) 17 Gm Pack) 17 gm PO DAILY [facility] Stop: 02/26/25 16:59 Last Admin: 01/28/25 09:22 Dose: 17 gm
--- NOTE | 2025-01-28 11:04 | Orthopedic Progress Note ---
Date of Service January 28, 2025 Assessment & Plan (1) Hematoma of right hip: Plan: MRI showed no fracture. Continue WBAT and ROMAT. PT/OT. Pain control. Cont to hold ASA and Coumadin under senior infrastructure engineer recommendations. Would also continue to hold NSAIDs. Recommend TEDs for DVT prophylaxis. Pt is safe for discharge from an ortho standpoint. Will sign off for now. Follow up with [facility] in 4 weeks. Admission and Anticipated Discharge Date Admission Date: January 27, 2025 Subjective Pt reports he is doing well. Was feeling better and then did some exercises in bed and exacerbated his pain. No N/T Physical Exam Physical Exam: Thigh soft and compressible with some ttp over lateral thigh/gluteus. Full ROM ankle and Knee. 5/5 strength. Can tolerate some gentle passive ROM of hips with flexion, abductions and adductions. Thigh soft and compressible. Results & Data Vital Signs (Past 12 Hours) Vital Signs Temp Pulse Resp BP Pulse Ox O2 Del Method 01/28/25 07:44 36.8 C 71 16 122/74 95 Room Air (1) Hematoma of right hip Encounter type: initial encounter Qualified Code(s): S70.01XA - Contusion of right hip, initial encounter
[2025-01-28 13:15] LABS: Hematocrit (blood only) 33.1 % (42.0-52.0); Hemoglobin 11.7 g/dl (14.0-18.0)
[2025-01-28 16:20] LABS: ANTI-Xa, UFH(UnfractionatedHep 0.15 IU/ml (0.3-0.7)
--- NOTE | 2025-01-28 16:20 | Hospitalist Progress Note ---
Date of Service January 28, 2025 Assessment & Plan (1) Hip pain, right: Plan 60-year-old male with PMH of PSVT, bicuspid aortic valve status post mechanical AVR on Coumadin, ascending aortic aneurysm status post surgery, PAF/PSVT, HTN, HLD, T2DM on oral meds, GERD presented to the ED with complaint of worsening right hip pain. 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 He reports he has been moving around and bearing the pain at home/using tylenol, the pain was gradually worsening with acute worsening 1 day ago HEAD OF HISTORY which prompted him to present to the ED. He is being managed for the following: Mechanical Fall Right hip pain, traumatic Gluteus medius hematoma x right Hematoma in the setting of Coumadin coagulopathy Supratherapeutic INR: INR of 4.3 at presentation, hemoglobin of 15. Trend H&H and PT/INR. Hold off on reversal unless hemodynamically stability given mechanical heart valve. Mechanical heart valve status Patient presents with fall and worsening right hip pain. Noted to have gluteus medius hematoma at ED. Admitting CT Head w/ no acute finding. CT rt hip s/o right gluteus medius hematoma, recommends US for better eval. --> US right gluteus reviewed 01/27 01/27 MRI Rt hip: Large right gluteal intramuscular hematoma redemonstrated. No acute fracture. Probable tearing of the myotendinous junction of the right gluteus medius, suboptimally evaluated secondary to the edema and motion degradation. Patient with intractable pain at ED requiring fentanyl 100 mcg IV twice. Upon being transferred up to the floor, patient complained of pain not being controlled with Dilaudid and oxycodone, demanded fentanyl. For now, Tylenol is scheduled, c/w prn morphine, Dilaudid & oxycodone as it is. c/w daily Lidocaine patch. c/w Bowel regimen. Pt appears to be in better control when at bedrest, worse w/ movement. Ortho evaled, no Sx Ix for now, ice to right hip. f/u ortho in 4 weeks. Given pt w/ mechanical valve and complex cardiac hx, anticoagulation is complicated and tricky. Cardio on board, appreciate recs, c/w anticoagulation, dc aspirin. HnH has been stable, since inr is low, hep drip and warfarin has been started. trend pt/inr closely. INR goal 2.5 to 3.5 Fall precaution, bed rest. PT/OT evaluation. Elevated CPK: CPK elevated at 250, hold statin for now-->319--243. Resume statin in next few days. Complex cardiac history: PAF/bicuspid AV s/p mechanical AVR on Coumadin, ascending aortic aneurysm s/p Sx. c/w cardiac meds as able. Other chronic medical conditions: Continue with/resume home meds as and when able. hypertension, stable hyperlipidemia, on statin Rx DM 2 on oral meds, reasonable control as of last outpatient hemoglobin A1c of 7.1 from 2020. A1c this admission 7.1. DVT prophylaxis. SCDs if INR less than 2 while Coumadin on hold; resume Coumadin INR goal between 2.5-3.5 if H&H stable Full code Called pt's manpreet doe over the phone, left VM to call us back and ask for dr umana. Text document was generated using [employer] voice recognition software. It may contain grammatical or spelling errors. Kindly contact undersigned for clarification of any documentation item in question. Admission and Anticipated Discharge Date Admission Date: January 27, 2025 Subjective Patient was seen and examined at bedside. Patient reported he was overall doing better with pain, he did some stretching exercises in the morning which exacerbated his pain, patient advised not to overdo exercise or lift heavy or bend. Patient advised to continue normal daily activities. Otherwise patient does not offer any new complaints, afebrile, eating okay. Physical Exam Physical Exam: GENERAL: uncomfortable due to right hip pain, no respiratory distress SKIN: Normal color, warm HEENT: Ecchymosis right frontal area, pink palpebral conjunctivae, no ptosis, moist buccal mucosa NECK : Supple, no tenderness CHEST : CTA, no tenderness HEART : RRR, mechanical murmur ABDOMEN: Some distention, nontender EXTREMITIES : Right hip tenderness, no LE swelling, no other conspicuous deformities noted NEUROLOGIC : Coherent, no facial asymmetry, no other gross focality Results & Data Results & Data Vital Signs (Past 12 Hours) Vital Signs Temp Pulse Pulse Resp BP BP Pulse Ox 01/28/25 13:58 36.8 C 74 16 123/68 96 04/07/25 07:44 36.8 C 71 16 122/74 95 O2 Del Method 01/28/25 13:58 Room Air 01/28/25 07:44 Room Air
[2025-01-28] MEDS: WARFARIN SOD 10 MG TAB PO SCH (16:59)
[2025-01-28] MEDS ORDERED: Nursing to Pharmacy Communication ONE (17:03)
[2025-01-28] MEDS: HEPARIN SOD (PORCINE) 1000 UNIT/ML IV ONE ×2 (18:02)
[2025-01-29 00:57] LABS: ANTI-Xa, UFH(UnfractionatedHep 0.28 IU/ml (0.3-0.7)
[2025-01-29] MEDS: LORazepam 0.5 MG TAB PO PRN (05:44)
[2025-01-29 06:55] LABS: Hematocrit (blood only) 31.7 % (42.0-52.0); Hemoglobin 11.2 g/dl (14.0-18.0)
[2025-01-29 07:34] LABS: ANTI-Xa, UFH(UnfractionatedHep 0.27 IU/ml (0.3-0.7)
[2025-01-29 07:36] LABS: INR 1.1 (0.9-1.1); Prothrombin Time 11.6 Seconds (9.0-12.0)
--- NOTE | 2025-01-29 13:11 | Cardiology Progress Note ---
Date of Service January 29, 2025 Assessment & Plan (1) Ground-level fall: (2) H/O mechanical aortic valve replacement: (3) H/O aortic aneurysm repair: (4) Supratherapeutic INR: Plan 60 year old with past medical history of paroxysmal atrial fibrillation, SVT, bicuspid aortic valve s/p mechanical AVR, ascending aortic aneurysm s/p repair, HTN, dyslipidemia, DM 2, who presented to ED after mechanical fall. Hip MRI with large right gluteal intramuscular hematoma. Coumadin and aspirin held. 01/27/25: - patient feels well from cardiac standpoint - supratherapeutic INR, today 5.3 - hold coumadin due to supratherapeutic INR, INR goal 2.5-3.5, would be high risk for thrombosis if INR below 2.5 due to history of mechanical aortic valve - aspirin on hold due to hematoma and bleeding risk, resume per orthopedics - continue metoprolol succinate, losartan 01/28/25: -No cardiac complaints -Ongoing hip pain with limited range of motion of right leg. -INR low at 1.3 today. Start IV heparin. Start Coumadin 10 mg daily. INR goal 2.5-3.5 given mechanical valve. Daily INR. -Do not resume ASA. No clinical indication to continue at this time. -Continue metoprolol and losartan 01/29/2025 Status post aortic valve replacement with mechanical prosthesis. Patient underwent anticoagulation reversal due to large right hip hematoma after mechanical fall. Anticoagulation resumed with IV heparin. INR subtherapeutic Usual dose of Coumadin 15 mg Tuesday and 10 mg all other days. Received 10 mg warfarin last evening with little effect on INR Recommendations: 15 mg warfarin this evening, continue IV heparin. Could consider Lovenox bridge once INR begins to rise however risk of bleeding higher I spent a total of 30 minutes on the date of service in preparation, delivery, and documentation of the care provided to this patient excluding any time spent in the performance of separately billed services. This visit was a split-shared visit with the substantial portion of the decision making performed by the supervising resistor coater/billing provider. Admission and Anticipated Discharge Date Admission Date: January 27, 2025 Subjective Patient seen and personally examined. Still with painful tender right hip hematoma but no other acute cardiac complaints. Currently on IV heparin due to subtherapeutic INR. No chest pain or shortness of breath Review of Systems Review of Systems: All systems reviewed & are unremarkable except as noted in Subjective Physical Exam Constitutional: WD/WN, vitals as above Eyes: PERRL, conjunctivae normal, anicteric sclerae ENMT: external ear and nose normal, oropharynx normal Neck: trachea midline, no thyromegaly Respiratory: normal respiratory effort, lungs clear to auscultation Cardiovascular: Rate/Rhythm: regular rate and regular rhythm Heart Sounds: + murmur (Maury mechanical valve sounds in aortic position) Vessels: no JVD Extremities: no edema Skin: Large tender right hip hematoma Results & Data Vital Signs (Past 12 Hours) Vital Signs Temp Pulse Resp BP Pulse Ox O2 Del Method 01/29/25 07:37 36.5 C 66 14 126/74 95 Room Air Laboratory Results Laboratory Results - last 24 hr 01/28/25 01/28/25 01/28/25 12:34 15:41 16:38 Hgb 11.7 L Hct 33.1 L PT INR Heparin Anti-Xa, Unfract 0.15 L POC Glucose 166 H 01/28/25 01/28/25 01/29/25 20:19 20:21 00:14 Hgb Hct PT INR Heparin Anti-Xa, Unfract 0.28 L POC Glucose 313 H* 281 H 01/29/25 01/29/25 01/29/25 06:23 07:31 11:35 Hgb 11.2 L Hct 31.7 L PT 11.6 INR 1.1 Heparin Anti-Xa, Unfract 0.27 L POC Glucose 153 H 173 H
--- NOTE | 2025-01-29 14:57 | Hospitalist Progress Note ---
Date of Service January 29, 2025 Assessment & Plan (1) Hip pain, right: Plan 60-year-old male with PMH of PSVT, bicuspid aortic valve status post mechanical AVR on Coumadin, ascending aortic aneurysm status post surgery, PAF/PSVT, HTN, HLD, T2DM on oral meds, GERD presented to the ED with complaint of worsening right hip pain. 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 He is being managed for the following: Mechanical Fall Right hip pain, traumatic Gluteus medius hematoma x right R hip hematoma due to anticoagulant therapy Hematoma in the setting of Coumadin coagulopathy Supratherapeutic INR: INR of 4.3 at presentation, hemoglobin of 15. Trend H&H and PT/INR. Hold off on reversal unless hemodynamically stability given mechanical heart valve. Mechanical heart valve status Acute blood loss anemia: admitting Hb of 15, Hb dropped and now plateaued at around 11 Patient presents with fall and worsening right hip pain. Noted to have gluteus medius hematoma at ED. Admitting CT Head w/ no acute finding. CT rt hip s/o right gluteus medius hematoma, recommends US for better eval. --> US right gluteus reviewed 01/27 01/27 MRI Rt hip: Large right gluteal intramuscular hematoma redemonstrated. No acute fracture. Probable tearing of the myotendinous junction of the right gluteus medius, suboptimally evaluated secondary to the edema and motion degradation. Patient with intractable pain at ED requiring fentanyl 100 mcg IV twice. Upon being transferred up to the floor, patient complained of pain not being controlled with Dilaudid and oxycodone, demanded fentanyl. For now, Tylenol is scheduled, c/w prn morphine, Dilaudid & oxycodone as it is. c/w daily Lidocaine patch. c/w Bowel regimen. Pt appears to be in better control when at bedrest, worse w/ movement. Ortho evaled, no Sx Ix for now, ice to right hip. f/u ortho in 4 weeks. Given pt w/ mechanical valve and complex cardiac hx, anticoagulation is complicated and tricky. Cardio on board, appreciate recs, c/w anticoagulation, dc aspirin. HnH has been stable, since inr is low, c/w hep drip and warfarin. trend pt/inr closely. INR goal 2.5 to 3.5 Fall precaution, bed rest. PT/OT . Elevated CPK: CPK elevated at 250-->319--243. Resume statin in next few days. Complex cardiac history: PAF/bicuspid AV s/p mechanical AVR on Coumadin, ascending aortic aneurysm s/p Sx. c/w cardiac meds as able. Other chronic medical conditions: Continue with/resume home meds as and when able. hypertension, stable hyperlipidemia, on statin Rx DM 2 on oral meds, reasonable control as of last outpatient hemoglobin A1c of 7.1 from 2020. A1c this admission 7.1. DVT prophylaxis. SCDs if INR less than 2 while Coumadin on hold; resume Coumadin INR goal between 2.5-3.5 if H&H stable Full code Updated pt's dtr over the phone 01/28, answered all their questions. Text document was generated using [employer] voice recognition software. It may contain grammatical or spelling errors. Kindly contact undersigned for clarification of any documentation item in question. Admission and Anticipated Discharge Date Admission Date: January 27, 2025 Subjective Patient was seen and examined at bedside. Patient reported he was overall doing better with pain, having right hip pain again since last evening, is working w/ PT. Patient advised to continue normal daily activities. Otherwise patient does not offer any new complaints, afebrile, eating okay, moving bowels ok. Physical Exam Physical Exam: GENERAL: uncomfortable due to right hip pain, no respiratory distress SKIN: Normal color, warm HEENT: Ecchymosis right frontal area, pink palpebral conjunctivae, no ptosis, moist buccal mucosa NECK : Supple, no tenderness CHEST : CTA, no tenderness HEART : RRR, mechanical murmur ABDOMEN: Some distention, nontender EXTREMITIES : Right hip tenderness, no LE swelling, no other conspicuous deformities noted NEUROLOGIC : Coherent, no facial asymmetry, no other gross focality Results & Data Results & Data Vital Signs (Past 12 Hours) Vital Signs Temp Pulse Resp BP Pulse Ox O2 Del Method 01/29/25 07:37 36.5 C 66 14 126/74 95 Room Air
[2025-01-29] MEDS: WARFARIN SOD 7.5 MG TAB PO SCH (16:21)
[2025-01-29 16:36] LABS: ANTI-Xa, UFH(UnfractionatedHep 0.28 IU/ml (0.3-0.7)
[2025-01-30] LABS: ANTI-Xa, UFH(UnfractionatedHep 0.28 IU/ml (0.3-0.7)
[2025-01-30 06:50] LABS: Hematocrit (blood only) 32.6 % (42.0-52.0); Hemoglobin 11.6 g/dl (14.0-18.0)
[2025-01-30 07:14] LABS: ANTI-Xa, UFH(UnfractionatedHep 0.38 IU/ml (0.3-0.7)
[2025-01-30 07:18] LABS: INR 1.1 (0.9-1.1)
--- NOTE | 2025-01-30 11:31 | Cardiology Progress Note ---
Date of Service January 30, 2025 Assessment & Plan (1) Ground-level fall: (2) H/O mechanical aortic valve replacement: (3) H/O aortic aneurysm repair: (4) Supratherapeutic INR: Plan 60 year old with past medical history of paroxysmal atrial fibrillation, SVT, bicuspid aortic valve s/p mechanical AVR, ascending aortic aneurysm s/p repair, HTN, dyslipidemia, DM 2, who presented to ED after mechanical fall. Hip MRI with large right gluteal intramuscular hematoma. Coumadin and aspirin held. 01/27/25: - patient feels well from cardiac standpoint - supratherapeutic INR, today 5.3 - hold coumadin due to supratherapeutic INR, INR goal 2.5-3.5, would be high risk for thrombosis if INR below 2.5 due to history of mechanical aortic valve - aspirin on hold due to hematoma and bleeding risk, resume per orthopedics - continue metoprolol succinate, losartan 01/28/25: -No cardiac complaints -Ongoing hip pain with limited range of motion of right leg. -INR low at 1.3 today. Start IV heparin. Start Coumadin 10 mg daily. INR goal 2.5-3.5 given mechanical valve. Daily INR. -Do not resume ASA. No clinical indication to continue at this time. -Continue metoprolol and losartan 01/29/2025 Status post aortic valve replacement with mechanical prosthesis. Patient underwent anticoagulation reversal due to large right hip hematoma after mechanical fall. Anticoagulation resumed with IV heparin. INR subtherapeutic Usual dose of Coumadin 15 mg Tuesday and 10 mg all other days. Received 10 mg warfarin last evening with little effect on INR Recommendations: 15 mg warfarin this evening, continue IV heparin. Could consider Lovenox bridge once INR begins to rise however risk of bleeding higher 01/30/2025 Mechanical AVR with subtherapeutic INR on anticoagulation with heparin warfarin ordered at 15 mg daily. Await INR rise I spent a total of 20 minutes on the date of service in preparation, delivery, and documentation of the care provided to this patient excluding any time spent in the performance of separately billed services. This visit was a split-shared visit with the substantial portion of the decision making performed by the supervising radio electrician/billing provider. Admission and Anticipated Discharge Date Admission Date: January 27, 2025 Subjective No cardiac complaints. Still with hip pain. INR still subtherapeutic remains anticoag with IV heparin given mechanical aortic valve Results & Data Vital Signs (Past 12 Hours) Vital Signs Temp Pulse Resp BP Pulse Ox O2 Del Method 01/30/25 07:40 36.6 C 69 16 133/74 94 Room Air Laboratory Results Laboratory Results - last 24 hr 01/29/25 01/29/25 01/29/25 11:35 15:54 16:26 Hgb Hct PT INR Heparin Anti-Xa, Unfract 0.28 L POC Glucose 173 H 142 H 01/29/25 01/29/25 01/30/25 20:46 23:03 06:29 Hgb 11.6 L Hct 32.6 L PT 12.0 INR 1.1 Heparin Anti-Xa, Unfract 0.28 L 0.38 POC Glucose 139 H 01/30/25 07:50 Hgb Hct PT INR Heparin Anti-Xa, Unfract POC Glucose 144 H
--- NOTE | 2025-01-30 11:38 | Hospitalist Progress Note ---
Date of Service January 30, 2025 Assessment & Plan (1) Hip pain, right: Plan 60-year-old male with PMH of PSVT, bicuspid aortic valve status post mechanical AVR on Coumadin, ascending aortic aneurysm status post surgery, PAF/PSVT, HTN, HLD, T2DM on oral meds, GERD presented to the ED with complaint of worsening right hip pain. 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 Mechanical heart valve status Acute blood loss anemia: Patient presents with fall and worsening right hip pain. Noted to have gluteus medius hematoma at ED. Admitting CT Head w/ no acute finding. CT Rt hip s/o right gluteus medius hematoma 01/27 MRI Rt hip: Large right gluteal intramuscular hematoma redemonstrated. No acute fracture. Probable tearing of the myotendinous junction of the right gluteus medius, suboptimally evaluated secondary to the edema and motion degradation. Patient with intractable pain at ED requiring fentanyl 100 mcg IV twice. Continue current pain regimen with scheduled tylenol, lidocaine, prn oxycodone/dilaudid Hb was 15 on admission, dropped and stabilized in 11s Ortho recs noted. No surgical intervention recommended. f/u ortho in 4 weeks. PT/OT Cardio on board [employer] aspirin stopped INR still subtherapeutic. Currently on heparin - warfarin bridge Monitor INR daily Elevated CPK: CPK elevated at 250-->319--243. Resume statin on dc Complex cardiac history: PAF/bicuspid AV s/p mechanical AVR on Coumadin Ascending aortic aneurysm s/p Sx. Other chronic medical conditions: DM 2 on oral meds, reasonable control as of last outpatient hemoglobin A1c of 7.1 from 2020. A1c this admission 7.1. DVT prophylaxis. Heparin-warfarin bridge Full code I spent a total of 50minutes coordinating, documenting and providing care for this patient excluding time spent in performance of separately billed services Admission and Anticipated Discharge Date Admission Date: January 27, 2025 Subjective Patient seen and examined Reports Right hip pain is well controlled Denied any other complaints at this time Physical Exam Constitutional: + well hydrated; no acute distress Eyes: PERRL, conjunctivae normal, anicteric sclerae ENMT: external ear and nose normal, oropharynx normal Respiratory: normal respiratory effort, lungs clear to auscultation Cardiovascular: Rate/Rhythm: regular rate and regular rhythm +mechanical click Gastrointestinal (Abdomen): normal bowel sounds, soft, nontender, no hepatosplenomegaly Musculoskeletal: Right lateral upper thigh ecchymoses/hip tenderness Neurologic: PERRL, EOMI, accommodation nl, no face palsy, no dysarthria Psychiatric: A+Ox3, euthymic affect Results & Data Results & Data Vital Signs (Past 12 Hours) Vital Signs Temp Pulse Resp BP Pulse Ox O2 Del Method 01/30/25 07:40 36.6 C 69 16 133/74 94 Room Air Laboratory Results Abnormal lab results 01/29/25 01/29/25 01/29/25 Range/Units 15:54 16:26 20:46 Hgb (14.0-18.0) g/dl Hct (42.0-52.0) % Heparin Anti-Xa, Unfract 0.28 L (0.3-0.7) IU/ml POC Glucose 142 H 139 H (70-99) mg/dl 01/29/25 01/30/25 01/30/25 Range/Units 23:03 06:29 07:50 Hgb 11.6 L (14.0-18.0) g/dl Hct 32.6 L (42.0-52.0) % Heparin Anti-Xa, Unfract 0.28 L (0.3-0.7) IU/ml POC Glucose 144 H (70-99) mg/dl 01/30/25 Range/Units 11:40 Hgb (14.0-18.0) g/dl Hct (42.0-52.0) % Heparin Anti-Xa, Unfract (0.3-0.7) IU/ml POC Glucose 141 H (70-99) mg/dl
[2025-01-31 08:31] LABS: BUN Creatinine Ratio 15.5 (10-20); Calcium 9.1 mg/dl (8.6-10.3); Creatinine Clr Calc Pharmacy 100.7 ml/min; Potassium 3.8 mmol/L (3.5-5.1)
[2025-01-31 08:33] LABS: ANTI-Xa, UFH(UnfractionatedHep 0.36 IU/ml (0.3-0.7); INR 1.4 (0.9-1.1); Prothrombin Time 14.5 Seconds (9.0-12.0)
[2025-01-31 10:08] LABS: Hematocrit (blood only) 33.1 % (42.0-52.0); Hemoglobin 11.6 g/dl (14.0-18.0); Mean Corpuscular Hemoglobin 32.8 pg (25.0-34.0); Mean Corpuscular Volume 93.5 fL (80.0-100.0); Mean Platelet Volume 8.6 fL (9.4-12.4); Platelet Count 219 K/uL (130-400); RDW Coefficient of Variation 12.5 % (11.5-14.5); RDW Standard Deviation 42.7 fL (36.4-46.3); Red Blood Count 3.54 M/uL (4.70-6.10); White Blood Count 5.32 K/ul (4.8-10.8)
--- NOTE | 2025-01-31 12:37 | Hospitalist Progress Note ---
Date of Service January 31, 2025 Assessment & Plan (1) Hip pain, right: Plan 60-year-old male with PMH of PSVT, bicuspid aortic valve status post mechanical AVR on Coumadin, ascending aortic aneurysm status post surgery, PAF/PSVT, HTN, HLD, T2DM on oral meds, GERD presented to the ED with complaint of worsening right hip pain. 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 Mechanical heart valve status Acute blood loss anemia: Patient presents with fall and worsening right hip pain. Noted to have gluteus medius hematoma at ED. Admitting CT Head w/ no acute finding. CT Rt hip s/o right gluteus medius hematoma 01/27 MRI Rt hip: Large right gluteal intramuscular hematoma redemonstrated. No acute fracture. Probable tearing of the myotendinous junction of the right gluteus medius, suboptimally evaluated secondary to the edema and motion degradation. Patient with intractable pain at ED requiring fentanyl 100 mcg IV twice. Continue current pain regimen with scheduled tylenol, lidocaine, prn oxycodone/dilaudid Hb was 15 on admission, dropped and stabilized in 11s Ortho recs noted. No surgical intervention recommended. f/u ortho in 4 weeks. 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 1.4 today Currently on heparin - warfarin bridge Monitor INR daily Elevated CPK: CPK elevated at 250-->319--243. Resume statin on dc Complex cardiac history: PAF/bicuspid AV s/p mechanical AVR on Coumadin Ascending aortic aneurysm s/p Sx. Other chronic medical conditions: DM 2 on oral meds, reasonable control as of last outpatient hemoglobin A1c of 7.1 from 2020. A1c this admission 7.1. DVT prophylaxis. Heparin-warfarin bridge Full code I spent a total of 45 minutes coordinating, documenting and providing care for this patient excluding time spent in performance of separately billed services Admission and Anticipated Discharge Date Admission Date: January 27, 2025 Subjective Patient seen and examined Reports right hip pain especially with movement. No other complaints Physical Exam Constitutional: + well hydrated; no acute distress Eyes: PERRL, conjunctivae normal, anicteric sclerae ENMT: external ear and nose normal, oropharynx normal Respiratory: normal respiratory effort, lungs clear to auscultation Cardiovascular: Rate/Rhythm: regular rate and regular rhythm Gastrointestinal (Abdomen): normal bowel sounds, soft, nontender, no hepatosplenomegaly Musculoskeletal: Right hip tenderness Neurologic: PERRL, EOMI, accommodation nl, no face palsy, no dysarthria Psychiatric: A+Ox3, euthymic affect Results & Data Results & Data Vital Signs (Past 12 Hours) Vital Signs Temp Pulse Resp BP Pulse Ox O2 Del Method 01/31/25 07:29 36.7 C 63 17 154/82 H 97 Room Air Laboratory Results Abnormal lab results 01/30/25 01/30/25 01/31/25 Range/Units 16:35 20:22 07:20 RBC 3.54 L (4.70-6.10) M/uL Hgb 11.6 L (14.0-18.0) g/dl Hct 33.1 L (42.0-52.0) % MPV 8.6 L (9.4-12.4) fL PT 14.5 H (9.0-12.0) Seconds INR 1.4 H (0.9-1.1) Carbon Dioxide 33 H (21-32) mmol/L Glucose 145 H (70-99(Fasting)) mg/dl POC Glucose 169 H 171 H (70-99) mg/dl 01/31/25 01/31/25 Range/Units 07:42 11:53 RBC (4.70-6.10) M/uL Hgb (14.0-18.0) g/dl Hct (42.0-52.0) % MPV (9.4-12.4) fL PT (9.0-12.0) Seconds INR (0.9-1.1) Carbon Dioxide (21-32) mmol/L Glucose (70-99(Fasting)) mg/dl POC Glucose 147 H 173 H (70-99) mg/dl
[2025-02-01 06:49] LABS: Hematocrit (blood only) 33.5 % (42.0-52.0); Hemoglobin 11.9 g/dl (14.0-18.0); Mean Corpuscular Hemoglobin 32.9 pg (25.0-34.0); Mean Corpuscular Hgb Conc 35.5 g/dL (32.0-36.0); Mean Corpuscular Volume 92.5 fL (80.0-100.0); Mean Platelet Volume 8.6 fL (9.4-12.4); Platelet Count 204 K/uL (130-400); RDW Coefficient of Variation 12.5 % (11.5-14.5); Red Blood Count 3.62 M/uL (4.70-6.10); White Blood Count 4.97 K/ul (4.8-10.8)
[2025-02-01 07:14] LABS: INR 1.6 (0.9-1.1); Prothrombin Time 17.1 Seconds (9.0-12.0)
--- NOTE | 2025-02-01 10:33 | Hospitalist Progress Note ---
Date of Service February 01, 2025 Assessment & Plan (1) Hip pain, right: Plan 60-year-old male with PMH of PSVT, bicuspid aortic valve status post mechanical AVR on Coumadin, ascending aortic aneurysm status post surgery, PAF/PSVT, HTN, HLD, T2DM on oral meds, GERD presented to the ED with complaint of worsening right hip pain. 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 Mechanical heart valve status Acute blood loss anemia: Patient presents with fall and worsening right hip pain. Noted to have gluteus medius hematoma at ED. Admitting CT Head w/ no acute finding. CT Rt hip s/o right gluteus medius hematoma 01/27 MRI Rt hip: Large right gluteal intramuscular hematoma redemonstrated. No acute fracture. Probable tearing of the myotendinous junction of the right gluteus medius, suboptimally evaluated secondary to the edema and motion degradation. Patient with intractable pain at ED requiring fentanyl 100 mcg IV twice. Continue current pain regimen with scheduled tylenol, lidocaine, prn oxycodone/dilaudid Hb was 15 on admission, dropped and stabilized in 11s Ortho recs noted. No surgical intervention recommended. f/u ortho in 4 weeks. 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 1.6 today Currently on heparin - warfarin bridge Monitor INR daily Elevated CPK: CPK elevated at 250-->319--243. Resume statin on dc Complex cardiac history: PAF/bicuspid AV s/p mechanical AVR on Coumadin Ascending aortic aneurysm s/p Sx. Other chronic medical conditions: DM 2 on oral meds, reasonable control as of last outpatient hemoglobin A1c of 7.1 from 2020. A1c this admission 7.1. DVT prophylaxis. Heparin-warfarin bridge Full code I spent a total of 35 minutes coordinating, documenting and providing care for this patient excluding time spent in performance of separately billed services Admission and Anticipated Discharge Date Admission Date: January 27, 2025 Subjective Patient seen and examined Reports improved pain control even with activity No other complaints today Physical Exam Constitutional: + well hydrated; no acute distress Eyes: PERRL, conjunctivae normal, anicteric sclerae ENMT: external ear and nose normal, oropharynx normal Respiratory: normal respiratory effort, lungs clear to auscultation Cardiovascular: Rate/Rhythm: regular rate and regular rhythm Gastrointestinal (Abdomen): normal bowel sounds, soft, nontender, no hepatosplenomegaly Neurologic: PERRL, EOMI, accommodation nl, no face palsy, no dysarthria Psychiatric: A+Ox3, euthymic affect Results & Data Results & Data Vital Signs (Past 12 Hours) Vital Signs Temp Pulse Resp BP Pulse Ox O2 Del Method 02/01/25 07:39 36.5 C 65 15 111/67 96 Room Air Laboratory Results Abnormal lab results 01/31/25 01/31/25 02/01/25 Range/Units 16:45 19:47 06:08 RBC 3.62 L (4.70-6.10) M/uL Hgb 11.9 L (14.0-18.0) g/dl Hct 33.5 L (42.0-52.0) % MPV 8.6 L (9.4-12.4) fL PT 17.1 H (9.0-12.0) Seconds INR 1.6 H (0.9-1.1) POC Glucose 254 H 177 H (70-99) mg/dl 02/01/25 02/01/25 Range/Units 07:42 11:33 RBC (4.70-6.10) M/uL Hgb (14.0-18.0) g/dl Hct (42.0-52.0) % MPV (9.4-12.4) fL PT (9.0-12.0) Seconds INR (0.9-1.1) POC Glucose 174 H 223 H (70-99) mg/dl
[2025-02-02 06:47] LABS: Hematocrit (blood only) 34.3 % (42.0-52.0); Hemoglobin 11.9 g/dl (14.0-18.0)
[2025-02-02 07:09] LABS: Prothrombin Time 20.1 Seconds (9.0-12.0)
--- NOTE | 2025-02-02 10:26 | Hospitalist Progress Note ---
Date of Service February 02, 2025 Assessment & Plan (1) Hip pain, right: Plan 60-year-old male with PMH of PSVT, bicuspid aortic valve status post mechanical AVR on Coumadin, ascending aortic aneurysm status post surgery, PAF/PSVT, HTN, HLD, T2DM on oral meds, GERD presented to the ED with complaint of worsening right hip pain. 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 Mechanical heart valve status Acute blood loss anemia: Patient presents with fall and worsening right hip pain. Noted to have gluteus medius hematoma at ED. Admitting CT Head w/ no acute finding. CT Rt hip s/o right gluteus medius hematoma 01/27 MRI Rt hip: Large right gluteal intramuscular hematoma redemonstrated. No acute fracture. Probable tearing of the myotendinous junction of the right gluteus medius, suboptimally evaluated secondary to the edema and motion degradation. Patient with intractable pain at ED requiring fentanyl 100 mcg IV twice. Continue current pain regimen with scheduled tylenol, lidocaine, prn oxycodone/dilaudid Hb was 15 on admission, dropped and stabilized in 11s Ortho recs noted. No surgical intervention recommended. f/u ortho in 4 weeks. 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 2 today Goal is 2.5-3.5 Currently on heparin - warfarin bridge Monitor INR daily Elevated CPK: CPK elevated at 250-->319--243. Resume statin on dc Complex cardiac history: PAF/bicuspid AV s/p mechanical AVR on Coumadin Ascending aortic aneurysm s/p Sx. Other chronic medical conditions: DM 2 on oral meds, reasonable control as of last outpatient hemoglobin A1c of 7.1 from 2020. A1c this admission 7.1. DVT prophylaxis. Heparin-warfarin bridge Full code I spent a total of 35 minutes coordinating, documenting and providing care for this patient excluding time spent in performance of separately billed services Admission and Anticipated Discharge Date Admission Date: January 27, 2025 Subjective Patient seen and examined Reports improved pain control even with activity No other complaints today Physical Exam Constitutional: + well hydrated; no acute distress Eyes: PERRL, conjunctivae normal, anicteric sclerae ENMT: external ear and nose normal, oropharynx normal Respiratory: normal respiratory effort, lungs clear to auscultation Cardiovascular: Rate/Rhythm: regular rate and regular rhythm Gastrointestinal (Abdomen): normal bowel sounds, soft, nontender, no hepatosplenomegaly Neurologic: PERRL, EOMI, accommodation nl, no face palsy, no dysarthria Psychiatric: A+Ox3, euthymic affect Results & Data Results & Data Vital Signs (Past 12 Hours) Vital Signs Temp Pulse Resp BP Pulse Ox O2 Del Method 02/02/25 07:34 36.8 C 68 20 109/68 97 Room Air Laboratory Results Abnormal lab results 02/01/25 02/01/25 02/02/25 Range/Units 16:49 21:18 05:38 Hgb 11.9 L (14.0-18.0) g/dl Hct 34.3 L (42.0-52.0) % PT 20.1 H (9.0-12.0) Seconds INR 2.0 H (0.9-1.1) POC Glucose 182 H 169 H (70-99) mg/dl 02/02/25 02/02/25 Range/Units 07:37 11:18 Hgb (14.0-18.0) g/dl Hct (42.0-52.0) % PT (9.0-12.0) Seconds INR (0.9-1.1) POC Glucose 147 H 214 H (70-99) mg/dl
[2025-02-02 20:25] LABS: ANTI-Xa, UFH(UnfractionatedHep 0.21 IU/ml (0.3-0.7)
[2025-02-03 08:52] LABS: ANTI-Xa, UFH(UnfractionatedHep 0.47 IU/ml (0.3-0.7); INR 2.3 (0.9-1.1); Prothrombin Time 22.8 Seconds (9.0-12.0)
--- NOTE | 2025-02-03 10:59 | Hospitalist Progress Note ---
Date of Service February 03, 2025 Assessment & Plan (1) Hip pain, right: Plan 60-year-old male with PMH of PSVT, bicuspid aortic valve status post mechanical AVR on Coumadin, ascending aortic aneurysm status post surgery, PAF/PSVT, HTN, HLD, T2DM on oral meds, GERD presented to the ED with complaint of worsening right hip pain. 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 Mechanical heart valve status Acute blood loss anemia: Patient presents with fall and worsening right hip pain. Noted to have gluteus medius hematoma at ED. Admitting CT Head w/ no acute finding. CT Rt hip s/o right gluteus medius hematoma 01/27 MRI Rt hip: Large right gluteal intramuscular hematoma redemonstrated. No acute fracture. Probable tearing of the myotendinous junction of the right gluteus medius, suboptimally evaluated secondary to the edema and motion degradation. Patient with intractable pain at ED requiring fentanyl 100 mcg IV twice. Continue current pain regimen with scheduled tylenol, lidocaine, prn oxycodone/dilaudid Hb was 15 on admission, dropped and stabilized in 11s Ortho recs noted. No surgical intervention recommended. f/u ortho in 4 weeks. 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 2.3 today Goal is 2.5-3.5 Currently on heparin - warfarin bridge Monitor INR daily Elevated CPK: CPK elevated at 250-->319--243. Resume statin on dc Complex cardiac history: PAF/bicuspid AV s/p mechanical AVR on Coumadin Ascending aortic aneurysm s/p Sx. Other chronic medical conditions: DM 2 on oral meds, reasonable control as of last outpatient hemoglobin A1c of 7.1 from 2020. A1c this admission 7.1. DVT prophylaxis. Heparin-warfarin bridge Full code I spent a total of 35 minutes coordinating, documenting and providing care for this patient excluding time spent in performance of separately billed services Admission and Anticipated Discharge Date Admission Date: January 27, 2025 Subjective Patient seen and examined Reports right hip pain is improving Physical Exam Constitutional: + well hydrated; no acute distress Eyes: PERRL, conjunctivae normal, anicteric sclerae ENMT: external ear and nose normal, oropharynx normal Respiratory: normal respiratory effort, lungs clear to auscultation Cardiovascular: Rate/Rhythm: regular rate and regular rhythm Gastrointestinal (Abdomen): normal bowel sounds, soft, nontender, no hepatosplenomegaly Neurologic: PERRL, EOMI, accommodation nl, no face palsy, no dysarthria Psychiatric: A+Ox3, euthymic affect Results & Data Results & Data Vital Signs (Past 12 Hours) Vital Signs Temp Pulse Resp BP Pulse Ox O2 Del Method 02/03/25 07:21 36.6 C 73 18 133/71 93 Room Air Laboratory Results Abnormal lab results 02/02/25 02/02/25 02/02/25 Range/Units 16:32 19:52 20:50 PT (9.0-12.0) Seconds INR (0.9-1.1) Heparin Anti-Xa, Unfract 0.21 L (0.3-0.7) IU/ml POC Glucose 156 H 297 H (70-99) mg/dl 02/03/25 02/03/25 02/03/25 Range/Units 07:34 07:39 11:41 PT 22.8 H (9.0-12.0) Seconds INR 2.3 H (0.9-1.1) Heparin Anti-Xa, Unfract (0.3-0.7) IU/ml POC Glucose 173 H 202 H (70-99) mg/dl
[2025-02-03 15:22] VITALS: O2SAT 97
[2025-02-04 07:13] VITALS: RESP 16; TEMP 98.2
[2025-02-04 09:26] VITALS: BP 133/72
[2025-02-04 10:06] LABS: Basophils # (auto) 0.03 K/uL (0.00-0.20); Basophils % (auto) 0.5 %; Eosinophils # (auto) 0.22 K/uL (0.00-0.50); Eosinophils % (auto) 3.8 %; Hematocrit (blood only) 35.5 % (42.0-52.0); Hemoglobin 12.1 g/dl (14.0-18.0); Immature Granulocytes # (auto) 0.02 K/uL (0.01-0.20); Immature Granulocytes % (auto) 0.3 %; Lymphocytes % (auto) 24.1 %; Mean Corpuscular Hemoglobin 32.2 pg (25.0-34.0); Mean Corpuscular Hgb Conc 34.1 g/dL (32.0-36.0); Mean Corpuscular Volume 94.4 fL (80.0-100.0); Mean Platelet Volume 8.5 fL (9.4-12.4); Monocytes % (auto) 6.9 %; Neutrophils # (auto) 3.74 K/uL (1.40-6.50); Neutrophils % (auto) 64.4 %; Platelet Count 198 K/uL (130-400); RDW Coefficient of Variation 13.2 % (11.5-14.5); RDW Standard Deviation 45.2 fL (36.4-46.3); Red Blood Count 3.76 M/uL (4.70-6.10); White Blood Count 5.81 K/ul (4.8-10.8)
[2025-02-04 10:30] LABS: ANTI-Xa, UFH(UnfractionatedHep 0.42 IU/ml (0.3-0.7); INR 2.6 (0.9-1.1); Prothrombin Time 25.7 Seconds (9.0-12.0)
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
[2025-02-04 12:46] VITALS: PULSE 75
== END 2025-02-04 14:11 | disposition home or self-care (01) | DRG 813 ==
LOC: ED 01:48 → EDINP 01:48 → 3W 09:58 → SUATTDRO 01-27 14:20